=== PATIENT | female | born 1970 | race Two or more races ===

== ENCOUNTER 2020-07-11 14:59 | Outpatient (REF) | payer MEDICARE, MEDICAID, SELFPAY | END 2020-07-11 15:00 | disposition home or self-care (01) | LOC: HO.LAB 14:59 | PROVIDERS: Visit Provider Internal Medicine | DX: Z20.822 Contact with and (suspected) exposure to COVID-19 (principal) | CPT/HCPCS: 36415; C9803; U0003 ==

== ENCOUNTER 2020-07-20 09:38 | Outpatient (REF) | payer MEDICARE, MEDICAID, SELFPAY | END 2020-07-20 09:39 | disposition home or self-care (01) | LOC: HO.LAB 09:38 | PROVIDERS: Visit Provider Internal Medicine | DX: Z20.822 Contact with and (suspected) exposure to COVID-19 (principal) | CPT/HCPCS: 36415; C9803; U0003 ==

== ENCOUNTER → 2020-08-01 11:43 | Outpatient (BNVA) | payer MEDICARE, MEDICAID, SELFPAY | PROVIDERS: PCP Nurse Practitioner Family; Visit Provider Physician Assistant | DX: Z13.89 Encounter for screening for other disorder (principal) | CPT/HCPCS: Q3014 ==

== ENCOUNTER 2020-08-04 10:10 | Outpatient (REF) | payer MEDICARE, SELFPAY | END 2020-08-04 10:11 | disposition home or self-care (01) | LOC: HO.LAB 10:10 | PROVIDERS: Visit Provider Internal Medicine | DX: Z20.822 Contact with and (suspected) exposure to COVID-19 (principal) | CPT/HCPCS: 36415; C9803; U0003; U0005 ==

== ENCOUNTER 2020-09-23 06:30 | Day surgery (SDC) | payer MEDICARE, SELFPAY ==
[2020-09-16 12:32] VITALS: BMI 36.6
--- NOTE | 2020-09-22 10:31 | HO.ANESPROP2 ---
HPI - Anesthesia Eval Consult details Narrative: 50yo F for Colonoscopy PMFSH Active Problems Active Problems: All Active Problems (Updated 09/16/20 @ 12:16 by Yany Urban) Encounter for screening colonoscopy (Acute) Diabetes (Acute) Thyroid condition (Acute) Dyslipidemia (Acute) Past Medical History Medical History (Updated 09/22/20 @ 10:31 by Krysten Lott) Anxiety and depression Arthritis Asthma Carpal tunnel syndrome Diabetes mellitus Elevated cholesterol GERD (gastroesophageal reflux disease) HTN (hypertension) Hx of migraines CARMEN on CPAP PONV (postoperative nausea and vomiting) Thyroid disease Family History Family History (Updated 08/01/20 @ 14:04 by Rosa Isela Dominguez PA-C) Father No problems noted. Mother No problems noted. Surgical History Surgical History (Updated 09/16/20 @ 12:16 by Yany Urban) History of appendectomy History of incisional hernia repair History of lymph node excision Hx of arthroscopy of left knee Social History Social History (Updated 08/01/20 @ 14:06 by Rosa Isela Dominguez PA-C) Are you a primary career services assistant to a significant other at home: No Alcohol intake: never Smoking Status: Current every day smoker Have you been hit, kicked, punched, or otherwise hurt by someone within the past year? If so, by whom?: No Advance Directives: No Advance Directives Information Provided: No Advance Directives on File: No Recently lost weight without trying: No Current occupational status: unemployed Meds Allergies Allergy/AdvReac Type Severity Reaction Status Date / Time erythromycin base Allergy Severe HIVES Verified 09/23/20 06:37 [Erythromycin Base] Penicillins Allergy Severe HIVES Verified 09/23/20 06:37 adhesive tape [ADHESIVE TAPE] Allergy Unknown RASH Verified 09/23/20 06:37 furosemide Allergy Unknown rash Verified 09/16/20 12:19 latex [LATEX] Allergy Unknown RASH Verified 09/23/20 06:37 penicillin V Allergy Unknown injection Verified 09/16/20 12:19 site reaction Sulfa (Sulfonamide Allergy Unknown DIZZINESS, Verified 09/23/20 06:37 Antibiotics) VOMITTING, [SULFA(SULFONAMIDE rash ANTIBIOTICS)] tolterodine [Detrol] Allergy Unknown rash Verified 09/16/20 12:19 Home Medications Medication Instructions Recorded Confirmed Last Taken Type amitriptyline 25 mg tablet 25 mg PO BEDTIME 08/01/20 09/16/20 Unknown History aspirin 81 mg tablet,delayed 81 mg PO DAILY 08/01/20 09/16/20 Unknown History release atorvastatin 10 mg tablet 10 mg PO DAILY 08/01/20 09/16/20 Unknown History dulaglutide 0.75 mg/0.5 mL 0.75 mg SUBCUT QWEEK 08/01/20 09/16/20 Unknown History subcutaneous pen injector fluticasone propionate 50 1 inh INHALATION BID 08/01/20 09/16/20 Unknown History mcg/actuation blister powder for inhalation levothyroxine 175 mcg capsule 175 mcg PO DAILY 08/01/20 09/16/20 Unknown History metformin 1,000 mg tablet 1,000 mg PO BID 08/08/20 09/16/20 Unknown History Lantus Solostar U-100 Insulin 25 unit SUBCUT BEDTIME 09/16/20 09/16/20 Unknown History acetaminophen-codeine 1 tab PO Q12H PRN 09/16/20 09/16/20 Unknown History albuterol sulfate 2 puff INHALATION Q4-6H PRN 09/16/20 09/16/20 Unknown History cholecalciferol (vitamin D3) 1 tab PO DAILY 09/16/20 09/16/20 Unknown History lisinopril 1 tab PO DAILY 09/16/20 09/16/20 Unknown History loratadine 1 tab PO DAILY 09/16/20 09/16/20 Unknown History omeprazole 1 cap PO DAILY 09/16/20 09/16/20 Unknown History Exam Exam Date and Time: September 22, 2020 1031 Height,Weight and Vital Signs: Height 5 ft 2 in Weight 90.718 kg Assessment and Plan Assessment Anesthesia Assessment: Chart Reviewed
[2020-09-23 06:50] VITALS: BP 134/73; PULSE 114; RESP 16; TEMP 36.3; O2SAT 97
[2020-09-23] MEDS: Lactated Ringers 1,000 ML 100 ML IVCONT (07:07)
[2020-09-23 07:12] LABS: Glucose, Whole Blood 179 mg/dL (60-115)
--- NOTE | 2020-09-23 07:23 | P.OP_ITS ---
Operative Note Operative Note Date of Service: 09/23/20 Narrative: Pre-op diagnosis: Colon cancer screening Post-op diagnosis: other (Cecal AVM, colon polyps, diverticulosis, hemorrhoids) Procedure: COLONOSCOPY TO THE CECUM WITH BIOPSY AND SNARE POLYPECTOMY Consent: Indications for the procedure and potential complications of bleeding, perforation, reaction to medications and missed diagnosis were discussed with the patient and informed consent was obtained. Instrument: Olympus PCF H 190 L variable stiffness pediatric colonoscope Monitoring: Vital signs and clinical assessment, intermittent blood pressure monitoring, continuous EKG monitoring, Pulse oximetry and Carbon Dioxide monitoring were done throughout the procedure. Colon withdrawl time was 32 minutes. Procedure: The patient was placed in the left lateral decubitis position and pre-procedure medications were administered. After a digital rectal examination of the ano-rectum, the video colonoscope was inserted into the rectum and advanced through the colon to the cecum. The colonoscope was slowly withdrawn in a retrograde panoramic fashion and the colon mucosa was carefully examined including a retroflexed view of the rectum. Findings and interventions are described below. Procedure Difficulty: Without difficulty Findings: Terminal Ileum: Not evaluated Cecum: 1 cm non-bleeding AVM in the cecum. Ascending Colon: Normal Transverse Colon: A 4 - 5 mm sessile polyp removed with the cold biopsy. Two 10-12 mm sessile polyps removed with a hot snare Descending Colon: Moderate diverticular Sigmoid Colon: Multiple 5-10 mm diminutive appearing polyps - one was biopsied. Moderate diverticulosis Rectum: Normal Ano-rectum: Moderate internal hemorrhoids Colon preparation: Fair despite copious irrigation Impression and Post Procedure Diagnosis: Colonoscopy Findings: Five small to medium sized polyps removed Moderate diverticulosis seen in the left colon Moderate hemorrhoids on retroflexed exam. Plan: Await pathology results Patient has an appointment on 10/20/20 in the [facility] with SUKHWINDER Collado . Repeat Colonoscopy interval based on path results - in 3 years if polyps are adenomatous and due to fair prep. Above findings were reviewed with the patient and colon polyps and diverticulosis handouts were given in the discharge area Surgeon: Figueroa Yang MD Anesthesia: MAC (Dr More) Chief Substation Operator: Marbin Abbott Estimated blood loss (mL): 0 Pathology: other (A- TRANSVERSE COLON POLYPS B- SIGMOID POLYPS) Condition: stable Disposition: PACU
--- NOTE | 2020-09-23 07:23 | P.HPSUR_ITS ---
Pre-Procedural Eval Section A The patient is an INPATIENT: No The History & Physical has been completed within 30 days and I have reviewed it.: No Section B Chief Complaint: Screening Details of Present Illness: A 49-year-old diabetic, female hypertension referred for screening colonoscopy-patient states she had a colonoscopy when she was 39 and [place] there were no problems. She currently has no GI complaints. She has a good appetite and normal bowel pattern. Relevant Family History (Specify if Yes): No Relevant Social History: None Present Medications: see Short Stay Collaborative assessment Allergies: Allergies Allergy/AdvReac Type Severity Reaction Status Date / Time erythromycin base Allergy Severe HIVES Verified 09/23/20 06:37 [Erythromycin Base] Penicillins Allergy Severe HIVES Verified 09/23/20 06:37 adhesive tape [ADHESIVE TAPE] Allergy Unknown RASH Verified 09/23/20 06:37 furosemide Allergy Unknown rash Verified 09/16/20 12:19 latex [LATEX] Allergy Unknown RASH Verified 09/23/20 06:37 penicillin V Allergy Unknown injection Verified 09/16/20 12:19 site reaction Sulfa (Sulfonamide Allergy Unknown DIZZINESS, Verified 09/23/20 06:37 Antibiotics) VOMITTING, [SULFA(SULFONAMIDE rash ANTIBIOTICS)] tolterodine [Detrol] Allergy Unknown rash Verified 09/16/20 12:19 Review of Systems Sugical H&P ROS: Negative: Constitution, Cardiovascular, Respiratory and Gastr ointestinal Exam Surgical H&P Exam: Normal: Heart, Normal: Lungs, Normal: Extremities and Normal: Abdomen Plan Diagnosis/Plan: Unchanged I have reviewed the history and physical and performed a pertinent physical examination on my patient. No changes have occurred unless specified.
[2020-09-23 08:30] VITALS: BP 106/67; PULSE 114; RESP 16; TEMP 36.4; O2SAT 94
[2020-09-23 08:43] LABS: Glucose, Whole Blood 176 mg/dL (60-115)
[2020-09-23 08:45] VITALS: BP 129/80; PULSE 113; RESP 16; TEMP 36.7; O2SAT 96
== END 2020-09-23 09:40 | disposition home or self-care (01) ==
PROVIDERS: Visit Provider Internal Medicine Gastroenterology
PROC: 0DJD8ZZ Inspection of Lower Intestinal Tract, Via Natural or Artificial Opening Endoscopic (ICD-10-PCS; CPT 45378; principal; 2020-09-23 07:30)
DX: Z12.11 Encounter for screening for malignant neoplasm of colon (principal); K63.5 Polyp of colon; K55.20 Angiodysplasia of colon without hemorrhage; K57.30 Diverticulosis of large intestine without perforation or abscess without bleeding; K64.8 Other hemorrhoids; I10 Essential (primary) hypertension; E11.9 Type 2 diabetes mellitus without complications; Z79.51 Long term (current) use of inhaled steroids; Z79.82 Long term (current) use of aspirin; Z79.84 Long term (current) use of oral hypoglycemic drugs; Z88.0 Allergy status to penicillin; Z88.2 Allergy status to sulfonamides; Z88.1 Allergy status to other antibiotic agents; Z91.040 Latex allergy status
CPT/HCPCS: 45385; 45380; 82947; 88305

== ENCOUNTER 2020-10-06 15:21 | Outpatient (REF) | payer MEDICARE, MEDICAID, SELFPAY | END 2020-10-06 15:22 | disposition home or self-care (01) | LOC: HO.LAB 15:21 | PROVIDERS: Visit Provider Internal Medicine | DX: Z20.822 Contact with and (suspected) exposure to COVID-19 (principal) | CPT/HCPCS: C9803; U0003; U0005 ==

== ENCOUNTER → 2020-11-02 11:10 | Outpatient (BNVA) | payer MEDICARE, SELFPAY | PROVIDERS: PCP Nurse Practitioner Primary Care; Visit Provider Physician Assistant | DX: Z13.89 Encounter for screening for other disorder (principal) | CPT/HCPCS: Q3014 ==

== ENCOUNTER 2021-01-23 14:35 | Outpatient (REF) | payer MEDICARE, MEDICAID, SELFPAY ==
--- NOTE | ~2021-01-23 | MM_ITS ---
EXAMINATION: MM SCREENING DIGITAL BREAST TOMOSYNTHESIS, BILATERAL CLINICAL INFORMATION: Screening. Asymptomatic. The lifetime risk of breast cancer based on the Tyrer-Cuzick Model is 9%. COMPARISON: Mammography: 02/07/2017 (baseline) TECHNIQUE: Digital breast tomosynthesis is performed in both the craniocaudal and mediolateral oblique views along with computer-aided detection (CAD). Synthesized 2D images are generated from the tomosynthesis. FINDINGS: There are scattered areas of fibroglandular density (ACR BI-RADS breast composition Category b). There are no significant masses, abnormal calcifications, or other abnormalities. The axilla and skin contours are unremarkable. No significant changes from prior exam. MM/MM tomosynthesis screening BI IMPRESSION: No mammographic evidence of malignancy. ASSESSMENT: BI-RADS 1: Negative RECOMMENDATION: Routine annual mammography screening. This patient's information was entered into a reminder system with a target due date for their next mammogram.
== END 2021-01-23 14:36 | disposition home or self-care (01) ==
LOC: HO.MAMMO 14:35
PROVIDERS: Visit Provider Nurse Practitioner Primary Care
DX: Z12.31 Encounter for screening mammogram for malignant neoplasm of breast (principal)
CPT/HCPCS: 77063; 77067

== ENCOUNTER 2021-03-07 14:06 | Outpatient (REF) | payer MEDICARE, MEDICAID, SELFPAY | END 2021-03-07 14:07 | disposition home or self-care (01) | LOC: HO.LAB 14:06 | PROVIDERS: Visit Provider Internal Medicine | DX: Z20.822 Contact with and (suspected) exposure to COVID-19 (principal) | CPT/HCPCS: C9803; U0003; U0005 ==

== ENCOUNTER 2021-03-17 12:02 | Outpatient (REF) | payer MEDICARE, MEDICAID, SELFPAY | END 2021-03-17 12:03 | disposition home or self-care (01) | LOC: HO.LAB 12:02 | PROVIDERS: Visit Provider Internal Medicine | DX: Z20.822 Contact with and (suspected) exposure to COVID-19 (principal) | CPT/HCPCS: C9803; U0003; U0005 ==

== ENCOUNTER 2021-05-06 06:27 | Emergency (ER) | payer MEDICARE, MEDICAID, SELFPAY ==
--- NOTE | ~2021-05-06 | CT_ITS ---
EXAMINATION: CT ABDOMEN AND PELVIS WITH CONTRAST CLINICAL INFORMATION: Abdominal pain COMPARISON: None TECHNIQUE: Multidetector volumetric images were obtained from the superior aspect of the liver through the pubic symphysis following administration 85 mL of Omnipaque 350 intravenous contrast. Sagittal and coronal reformatted images were obtained on the technologist's workstation. Oral contrast: No This CT examination was performed using dose optimization techniques as appropriate, variously including the following: *Automated exposure control *Adjustment of mA and/or kV according to patient size (this includes techniques or standardized protocols for targeted exams where dose is matched to indication/reason for exam; i.e. extremities or head) *Use of iterative reconstruction technique DLP: 715 mGy-cm FINDINGS: LUNG BASES: The visualized lung bases are unremarkable. No pleural or pericardial effusion. LIVER, GALLBLADDER, AND BILIARY TREE: The liver is normal in size, shape, and attenuation. No focal hepatic lesion or biliary ductal dilatation is present. Status post cholecystectomy. PANCREAS: Unremarkable. SPLEEN: Unremarkable. ADRENAL GLANDS: Unremarkable. KIDNEYS AND URETERS: The kidneys are normal in size, shape, and attenuation. No hydronephrosis, hydroureter, or calculi seen. No perinephric stranding. There is some fullness of the left upper collecting system but without obstructing calculus. BLADDER: Unremarkable. GASTROINTESTINAL TRACT: No dilated loops of large or small bowel evident. No free air or free fluid. No pericolonic inflammatory change. The appendix is not identified, however no inflammatory changes seen within the right lower quadrant. ABDOMINAL WALL: No significant hernia is appreciated. LYMPH NODES: No lymphadenopathy identified. VASCULAR: Unremarkable. PELVIC VISCERA: Unremarkable. OSSEOUS STRUCTURES: No suspicious destructive bony lesion identified. CT/CT abdomen pelvis w con IMPRESSION: No specific findings to explain patient's symptoms.
[2021-05-06 07:15] VITALS: BP 125/72; PULSE 110; RESP 16; TEMP 37.1; O2SAT 97; BMI 34.7
--- NOTE | 2021-05-06 07:25 | ED.ABDPAIN ---
HPI - Abdominal Pain General Chief Complaint: Abdominal Pain Stated Complaint: vomiting; abdominal pain Time Seen by Provider: 05/06/21 07:04 History of Present Illness HPI narrative: 50-year-old female with a history of diabetes presents today with having epigastric pain. Nausea vomiting that has been ongoing for the last week. Vomiting mostly consistent with food. Patient denies any fever chills. No cough no congestion or upper respiratory symptoms. No diaphoresis. Positive previous history of appendectomy and cholecystectomy. Patient denies any changes with food. Been compliant with her medication. She is on insulin and soup on a urea is. Patient stool has been darker in color. She has been using Pepto-Bismol. The stool has consistency. Patient denies any leg swelling that is new. Denies any chest pain. Denies any shortness of breath. Denies any diaphoresis. Patient from home. Related Data Home Medications Medication Instructions Recorded Confirmed amitriptyline 25 mg tablet 25 mg PO BEDTIME 08/01/20 09/16/20 aspirin 81 mg tablet,delayed 81 mg PO DAILY 08/01/20 09/16/20 release (Adult Aspirin Regimen) atorvastatin 10 mg tablet 10 mg PO DAILY 08/01/20 09/16/20 dulaglutide 0.75 mg/0.5 mL 0.75 mg SUBCUT QWEEK 08/01/20 09/16/20 subcutaneous pen injector (Trulicity) fluticasone propionate 50 1 inh INHALATION BID 08/01/20 09/16/20 mcg/actuation blister powder for inhalation (Flovent Diskus) levothyroxine 175 mcg capsule 175 mcg PO DAILY 08/01/20 09/16/20 metformin 1,000 mg tablet 1,000 mg PO BID 08/08/20 09/16/20 acetaminophen 300 mg-codeine 30 mg 1 tab PO Q12H PRN 09/16/20 09/16/20 tablet albuterol sulfate 90 mcg/actuation 2 puff INHALATION Q4-6H PRN 09/16/20 09/16/20 aerosol inhaler cholecalciferol (vitamin D3) 25 1 tab PO DAILY 09/16/20 09/16/20 mcg (1,000 unit) tablet insulin glargine 100 unit/mL (3 25 unit SUBCUT BEDTIME 09/16/20 09/16/20 mL) subcutaneous pen (Lantus Solostar U-100 Insulin) lisinopril 5 mg tablet 1 tab PO DAILY 09/16/20 09/16/20 loratadine 10 mg tablet 1 tab PO DAILY 09/16/20 09/16/20 omeprazole 20 mg capsule,delayed 1 cap PO DAILY 09/16/20 09/16/20 release Allergies Allergy/AdvReac Type Severity Reaction Status Date / Time erythromycin base Allergy Severe HIVES Verified 09/23/20 06:37 [Erythromycin Base] Penicillins Allergy Severe HIVES Verified 09/23/20 06:37 adhesive tape [ADHESIVE TAPE] Allergy Unknown RASH Verified 09/23/20 06:37 furosemide Allergy Unknown rash Verified 09/16/20 12:19 latex [LATEX] Allergy Unknown RASH Verified 09/23/20 06:37 penicillin V Allergy Unknown injection Verified 09/16/20 12:19 site reaction Sulfa (Sulfonamide Allergy Unknown DIZZINESS, Verified 09/23/20 06:37 Antibiotics) VOMITTING, [SULFA(SULFONAMIDE rash ANTIBIOTICS)] tolterodine [Detrol] Allergy Unknown rash Verified 09/16/20 12:19 Review of Systems Review of Systems Positive generalized malaise Positive abdominal pain Positive nausea vomiting Positive formed stool No chest pain no shortness of breath All systems reviewed otherwise negative Physical Exam Vital Signs: Vital Signs: Last Vital Signs Temp 98.7 F 05/06/21 10:11 Pulse 95 05/06/21 10:11 Resp 16 05/06/21 10:11 BP 115/60 05/06/21 10:11 Pulse Ox 97 05/06/21 10:11 Body Mass Index 34.7 Appearance: Alert. Oriented X3. No acute distress. Eyes: Pupils equal, round and reactive to light. ENT: Pharynx normal. Neck: Normal inspection. Neck supple. No lymph nodes noted. No crepitus CVS: Normal heart rate and rhythm. Pulses normal. Normal S1 and S2 Respiratory: No respiratory distress. Breath sounds normal. No Wheezing. No rales Abdomen: Soft and nontender. No rigidity. No distention. good BS x4 Skin: Skin warm and dry. Normal skin color. Normal skin turgor. Extremities: No lower extremity edema. Neurovascular intact to all extremities. No Lacerations. No Rash Neuro: Oriented X 3. No motor deficit. No sensory deficit. Moving all extermities. No slurred speech MDM - Abdominal Pain MDM Narrative Medical decision making narrative: EKG showed a sinus rhythm heart rate is 100 [place] QRS QT within normal limits there is no acute ST segment elevation noted Well-appearing no acute distress. Patient's white count was 16 CT scan of the abdomen negative for acute finding. Patient's EKG normal. Patient's urine negative for infection. Electrolytes unremarkable. No evidence of elevated LFTs. Lipase is normal. Will discharge patient home. In stable condition. Medical Records Attestation: I reviewed the patient's medical records. Lab Data Attestation: I reviewed the patient's lab results. Result diagrams: 05/06/21 09:34 05/06/21 07:38 Labs: Lab Results 05/06/21 05/06/21 05/06/21 Range/Units 07:38 07:38 08:52 WBC (4.8-10.8) X10*3/uL RBC (4.20-5.50) X10*6/uL Hgb (12.0-16.0) g/dl Hct (37.0-47.0) % MCV (80.0-98.0) fL MCH (27.0-33.0) pg MCHC (31.0-35.0) g/dl RDW (11.0-16.0) % Plt Count (160-400) X10*3/uL MPV (9.4-12.3) fL Immature Gran % (Auto) (0.0-0.4) % Neut % (Auto) (45-73) % Lymph % (Auto) (20-40) % [place] % (Auto) (2-11) % Eos % (Auto) (0-4) % Baso % (Auto) (0-2) % Lymph # (Auto) (1.2-4.9) X10*3/uL [place] # (Auto) (0.1-1.2) X10*3/uL Eos # (Auto) (0.0-0.4) X10*3/uL Baso # (Auto) (0.0-0.2) X10*3/uL Abs Immat Gran (auto) (0.00-0.03) X10*3/uL Absolute Neuts (auto) (2.0-8.3) x10*3/uL Absolute Nucleated RBC (0.0-0.012) X10*3/uL Nucleated RBC % (auto) (0.0-0.2) /100WBC Sodium 141 (135-145) mmol/L Potassium 4.4 (3.3-5.1) mmol/L Chloride 102 (96-108) mmol/L Carbon Dioxide 30 H (22-29) mmol/L Anion Gap 13 (12-20) BUN 8 L (9-16) mg/dL Creatinine 0.76 (0.5-1.4) mg/dL Estim Creat Clear Calc 89.2 Estimated GFR > 60 POC Glucose 103 (60-115) mg/dL Random Glucose 173 H (60-115) mg/dL Calcium 9.4 (8.4-10.2) mg/dL Total Bilirubin 0.3 (0.0-1.0) mg/dL Direct Bilirubin < 0.2 (0.0-0.5) mg/dL AST 15 (5-31) U/L ALT 20 (0-31) U/L Alkaline Phosphatase 120 H (39-117) U/L Total Protein 6.6 (6.5-8.0) g/dL Albumin 3.9 (3.5-5.0) g/dL Lipase 42 (8-78) U/L Urine Color Urine Appearance Urine pH (5.0-8.0) Ur Specific [place] (1.005-1.025) Urine Protein (NEG-TRACE) MG/DL Urine Glucose (UA) (NEG) MG/DL Urine Ketones (NEG) MG/DL Urine Blood (NEG) Urine Nitrite (NEG) Ur Leukocyte Esterase (NEG) Urine RBC (0) /HPF Urine WBC (0-4) /HPF Ur Squamous Epith Cells /LPF Urine Bacteria /LPF Stool Occult Blood NEGATIVE (NEGATIVE) 05/06/21 05/06/21 Range/Units 09:34 09:56 WBC 16.6 H (4.8-10.8) X10*3/uL RBC 3.86 L (4.20-5.50) X10*6/uL Hgb 12.0 (12.0-16.0) g/dl Hct 36.7 L (37.0-47.0) % MCV 95.1 (80.0-98.0) fL MCH 31.1 (27.0-33.0) pg MCHC 32.7 (31.0-35.0) g/dl RDW 12.8 (11.0-16.0) % Plt Count 362 (160-400) X10*3/uL MPV 10.4 (9.4-12.3) fL Immature Gran % (Auto) 0.4 (0.0-0.4) % Neut % (Auto) 59.6 (45-73) % Lymph % (Auto) 29.9 (20-40) % [place] % (Auto) 3.7 (2-11) % Eos % (Auto) 6.2 H (0-4) % Baso % (Auto) 0.2 (0-2) % Lymph # (Auto) 5.0 H (1.2-4.9) X10*3/uL [place] # (Auto) 0.6 (0.1-1.2) X10*3/uL Eos # (Auto) 1.0 H (0.0-0.4) X10*3/uL Baso # (Auto) 0.0 (0.0-0.2) X10*3/uL Abs Immat Gran (auto) 0.07 H (0.00-0.03) X10*3/uL Absolute Neuts (auto) 9.9 H (2.0-8.3) x10*3/uL Absolute Nucleated RBC 0.000 (0.0-0.012) X10*3/uL Nucleated RBC % (auto) 0.0 (0.0-0.2) /100WBC Sodium (135-145) mmol/L Potassium (3.3-5.1) mmol/L Chloride (96-108) mmol/L Carbon Dioxide (22-29) mmol/L Anion Gap (12-20) BUN (9-16) mg/dL Creatinine (0.5-1.4) mg/dL Estim Creat Clear Calc Estimated GFR POC Glucose (60-115) mg/dL Random Glucose (60-115) mg/dL Calcium (8.4-10.2) mg/dL Total Bilirubin (0.0-1.0) mg/dL Direct Bilirubin (0.0-0.5) mg/dL AST (5-31) U/L ALT (0-31) U/L Alkaline Phosphatase (39-117) U/L Total Protein (6.5-8.0) g/dL Albumin (3.5-5.0) g/dL Lipase (8-78) U/L Urine Color YELLOW Urine Appearance CLEAR Urine pH 7.0 (5.0-8.0) Ur Specific [place] <= 1.005 (1.005-1.025) Urine Protein NEG (NEG-TRACE) MG/DL Urine Glucose (UA) NEG (NEG) MG/DL Urine Ketones NEG (NEG) MG/DL Urine Blood NEG (NEG) Urine Nitrite NEG (NEG) Ur Leukocyte Esterase NEG (NEG) Urine RBC 0 (0) /HPF Urine WBC 0 (0-4) /HPF Ur Squamous Epith Cells NONE /LPF Urine Bacteria NONE /LPF Stool Occult Blood (NEGATIVE) Discharge Plan Discharge Clinical Impression: Gastritis, Diabetic gastroparesis Patient Disposition: Home, Self-Care Instructions: Gastritis (ED), Diabetic Gastroparesis (DC) Prescriptions: No Action acetaminophen-codeine 300-30 mg tablet 1 tab PO Q12H PRN (Reason: Pain) RF: 0 omeprazole 20 mg capsule,delayed release(DR/EC) 1 cap PO DAILY RF: 0 lisinopril 5 mg tablet 1 tab PO DAILY RF: 0 albuterol sulfate 90 mcg/actuation HFA aerosol inhaler 2 puff inhalation Q4-6H PRN (Reason: Wheezing) RF: 0 loratadine 10 mg tablet 1 tab PO DAILY RF: 0 cholecalciferol (vitamin D3) 25 mcg (1,000 unit) tablet 1 tab PO DAILY RF: 0 Lantus Solostar U-100 Insulin 100 unit/mL (3 mL) insulin pen 25 unit subcut BEDTIME RF: 0 aspirin [Adult Aspirin Regimen] 81 mg tablet,delayed release (DR/EC) 81 mg PO DAILY RF: 0 levothyroxine 175 mcg capsule 175 mcg PO DAILY RF: 0 atorvastatin 10 mg tablet 10 mg PO DAILY RF: 0 Trulicity 0.75 mg/0.5 mL pen injector 0.75 mg subcut QWEEK RF: 0 amitriptyline 25 mg tablet 25 mg PO BEDTIME RF: 0 Flovent Diskus 50 mcg/actuation blister with device 1 inh inhalation BID RF: 0 metformin 1,000 mg tablet 1,000 mg PO BID RF: 0 Referrals: Concepcion Booth [Primary Care Provider] - 2 days [facility] Past Medical History Attestation statement: The following information was validated with the patient. Medical History Anxiety and depression Arthritis Asthma Carpal tunnel syndrome Diabetes mellitus Elevated cholesterol GERD (gastroesophageal reflux disease) HTN (hypertension) Hx of migraines CARMEN on CPAP PONV (postoperative nausea and vomiting) Thyroid disease Surgical History History of appendectomy History of incisional hernia repair History of lymph node excision Hx of arthroscopy of left knee Hx of colonoscopy Family History Family History Father No problems noted. Mother No problems noted. Social History Social History Household Members: Spouse and Children Household Members Other:: lives with son Are you a primary continuum of care manager to a significant other at home: No Alcohol intake: never Patient Tobacco Use Status: Never used Tobacco Cigarettes Per Day: 3 Advance Directives: No Current occupational status: unemployed
--- NOTE | 2021-05-06 07:32 | ECG_ITS ---
Test Reason : CP Blood Pressure : / mmHG Vent. Rate : 100 BPM Atrial Rate : 100 BPM P-R Int : 146 ms QRS Dur : 074 ms QT Int : 380 ms P-R-T Axes : 063 029 041 degrees QTc Int : 490 ms Normal sinus rhythm Nonspecific ST abnormality Inferior leads Abnormal ECG Nonspecific ST abnormality is new Referred By: Adelita Keller Electronically Signed By:JERMAIN MAC MD
[2021-05-06 07:46] LABS: OBS Int Ctl Valid YES; OBS1 NEGATIVE (NEGATIVE)
[2021-05-06] MEDS: 0.9 % Sodium Chloride 1,000 ML 999 ML IV (07:53)
[2021-05-06 08:00] VITALS: BP 115/75; PULSE 103; RESP 16; O2SAT 98
[2021-05-06 08:02] LABS: Alanine Aminotransferase 20 U/L (0-31); Albumin Level 3.9 g/dL (3.5-5.0); Alkaline Phosphatase 120 U/L (39-117); Anion Gap 13 (12-20); Aspartate Amino Transferase 15 U/L (5-31); Bilirubin Direct < 0.2 mg/dL (0.0-0.5); Bilirubin Total 0.3 mg/dL (0.0-1.0); Blood Urea Nitrogen 8 mg/dL (9-16); Calcium 9.4 mg/dL (8.4-10.2); Carbon Dioxide 30 mmol/L (22-29); Chloride 102 mmol/L (96-108); Creatinine Clr Calc Pharmacy 89.2; Estimated Glomerular Filt Rate > 60; Glucose Random 173 mg/dL (60-115); Lipase 42 U/L (8-78); Potassium 4.4 mmol/L (3.3-5.1); Sodium 141 mmol/L (135-145); Total Protein 6.6 g/dL (6.5-8.0)
[2021-05-06] MEDS: ondansetron HCL 4 MG/2 ML VIAL IVPUSH (08:03)
--- NOTE | 2021-05-06 08:29 | PC.NURSE ---
pt alert and oriented x4, vss, pt c/o n/v/abdominal pain. she states the pain started after she was put on Gabapentin for neuropathy 3wks ago. she also states her stool turned black. she denies fever but reports chills. she states she has not been around anyone sick and she is covid vaccinated. IV established, fluids hung and med given as documented. pt currently in ct.
[2021-05-06] MEDS: iohexoL 350 MG/ML 100 ML INFUS..BTL IV (08:47)
[2021-05-06 08:55] LABS: Glucose, Whole Blood 103 mg/dL (60-115)
[2021-05-06 09:40] LABS: MANUAL DIFF FLAG NO
[2021-05-06 09:43] LABS: Basophils Percent Auto 0.2 % (0-2); Eosinophils Percent Auto 6.2 % (0-4); Hematocrit 36.7 % (37.0-47.0); Imm Gran Abs Auto 0.07 X10*3/uL (0.00-0.03); Imm Gran Pct Auto 0.4 % (0.0-0.4); Lymphocytes Percent Auto 29.9 % (20-40); Mean Corpuscular HGB Conc 32.7 g/dl (31.0-35.0); Mean Corpuscular Hemoglobin 31.1 pg (27.0-33.0); Mean Corpuscular Volume 95.1 fL (80.0-98.0); Mean Platelet Volume 10.4 fL (9.4-12.3); Monocytes Absolute Auto 0.6 X10*3/uL (0.1-1.2); Monocytes Percent Auto 3.7 % (2-11); Neutrophils Absolute Auto 9.9 x10*3/uL (2.0-8.3); Neutrophils Percent Auto 59.6 % (45-73); Platelet Count 362 X10*3/uL (160-400); Red Blood Count 3.86 X10*6/uL (4.20-5.50); Red Cell Distribution Width 12.8 % (11.0-16.0); White Blood Count 16.6 X10*3/uL (4.8-10.8)
[2021-05-06 10:04] LABS: Appearance Urine CLEAR; Color Urine YELLOW; Glucose Urine UA NEG (NEG); Leukocyte Esterase Urine NEG (NEG); Nitrite Urine NEG (NEG); Specific Gravity - Urine <= 1.005 (1.005-1.025); Urine Blood NEG (NEG); Urine Ketones NEG (NEG); Urine Protein NEG (NEG-TRACE)
[2021-05-06 10:10] LABS: RBC Urine 0 /HPF (0); WBC Urine 0 /HPF (0-4)
[2021-05-06 10:11] VITALS: BP 115/60; PULSE 95; RESP 16; TEMP 37.1; O2SAT 97
[2021-05-06] MEDS: Magnesium Hydrox/Alum Hydrox 30 ML ORAL.SUSP PO (10:27)
--- NOTE | 2021-05-06 11:39 | PC.NURSE ---
pt medically cleared for discharge, discharge summary given and explained. pt reports 2/10 pain. no complaints. pt alert and oriented, steady gait on discharge.
== END 2021-05-06 11:47 | disposition home or self-care (01) ==
PROVIDERS: Emergency Provider Emergency Medicine Emergency Medical Services; PCP Nurse Practitioner
DX: A08.4 Viral intestinal infection, unspecified (principal); E11.43 Type 2 diabetes mellitus with diabetic autonomic (poly)neuropathy; K31.84 Gastroparesis; F17.210 Nicotine dependence, cigarettes, uncomplicated; Z71.6 Tobacco abuse counseling; Z79.899 Other long term (current) drug therapy
CPT/HCPCS: 36415; 74177; 80048; 80076; 81001; 82272; 82947; 83690; 85025; 93005; 96361; 96374; 99284; 99285; J2405; Q9967

== ENCOUNTER 2021-07-10 14:20 | Emergency (ER) | payer MEDICARE, MEDICAID, SELFPAY ==
[2021-07-10 14:57] VITALS: BP 119/79; PULSE 104; RESP 18; TEMP 35.9; O2SAT 95; BMI 42.0
--- NOTE | 2021-07-10 17:26 | ED_ITS ---
HPI - URI/Sore Throat General Chief Complaint: Upper Respiratory Symptoms Stated Complaint: sore throat Time Seen by Provider: 07/10/21 16:58 Source: patient Mode of arrival: ambulatory Limitations: no limitations History of Present Illness HPI Narrative: 50-year-old female with a history of diabetes, hypothyroidism, high cholesterol here with reports of cough and sore throat and nasal congestion for 2-3 days. Patient received Moderna vaccine x2. She tells me that she has a feeling member who was living with her who is COVID positive. She denies fevers, chills, difficulty breathing or chest pain Related Data Home Medications Medication Instructions Recorded Confirmed amitriptyline 25 mg tablet 25 mg PO BEDTIME 08/01/20 09/16/20 aspirin 81 mg tablet,delayed 81 mg PO DAILY 08/01/20 09/16/20 release (Adult Aspirin Regimen) atorvastatin 10 mg tablet 10 mg PO DAILY 08/01/20 09/16/20 dulaglutide 0.75 mg/0.5 mL 0.75 mg SUBCUT QWEEK 08/01/20 09/16/20 subcutaneous pen injector (Trulicity) fluticasone propionate 50 1 inh INHALATION BID 08/01/20 09/16/20 mcg/actuation blister powder for inhalation (Flovent Diskus) levothyroxine 175 mcg capsule 175 mcg PO DAILY 08/01/20 09/16/20 metformin 1,000 mg tablet 1,000 mg PO BID 08/08/20 09/16/20 acetaminophen 300 mg-codeine 30 mg 1 tab PO Q12H PRN 09/16/20 09/16/20 tablet albuterol sulfate 90 mcg/actuation 2 puff INHALATION Q4-6H PRN 09/16/20 09/16/20 aerosol inhaler cholecalciferol (vitamin D3) 25 1 tab PO DAILY 09/16/20 09/16/20 mcg (1,000 unit) tablet insulin glargine 100 unit/mL (3 25 unit SUBCUT BEDTIME 09/16/20 09/16/20 mL) subcutaneous pen (Lantus Solostar U-100 Insulin) lisinopril 5 mg tablet 1 tab PO DAILY 09/16/20 09/16/20 loratadine 10 mg tablet 1 tab PO DAILY 09/16/20 09/16/20 omeprazole 20 mg capsule,delayed 1 cap PO DAILY 09/16/20 09/16/20 release Allergies Allergy/AdvReac Type Severity Reaction Status Date / Time erythromycin base Allergy Severe HIVES Verified 09/23/20 06:37 [Erythromycin Base] Penicillins Allergy Severe HIVES Verified 09/23/20 06:37 adhesive tape [ADHESIVE TAPE] Allergy Unknown RASH Verified 09/23/20 06:37 furosemide Allergy Unknown rash Verified 09/16/20 12:19 latex [LATEX] Allergy Unknown RASH Verified 09/23/20 06:37 penicillin V Allergy Unknown injection Verified 09/16/20 12:19 site reaction Sulfa (Sulfonamide Allergy Unknown DIZZINESS, Verified 09/23/20 06:37 Antibiotics) VOMITTING, [SULFA(SULFONAMIDE rash ANTIBIOTICS)] tolterodine [Detrol] Allergy Unknown rash Verified 09/16/20 12:19 Review of Systems Review of Systems: Yes all other systems are reviewed and are negative Constitutional: Constitutional: Reports no additional constitutional complaints, Denies body ache(s), Denies chills, Denies fever(s), Denies headache(s) and Denies weakness Eyes: Eyes: Reports no additional eye complaints and Denies change in vision ENT: Reports system reviewed and no additional complaints, except as documented, Denies dizziness, Denies headache(s), Reports nasal congestion, D enies nasal discharge, Denies neck pain and Reports sore throat Cardiovascular: Cardiovascular: Reports no additional cardiovascular complaints, Denies chest pain, Denies leg edema and Denies dyspnea Respiratory: Respiratory: Reports no additional respiratory complaints, Denies cough and Denies dyspnea Gastrointestinal: Gastrointestinal: Reports no additional gastrointestinal complaints, Denies abdominal pain, Denies diarrhea, Denies nausea and Denies vomiting Genitourinary: Genitourinary: Reports no additional female genitourinary complaints and Denies urinary incontinence Musculoskeletal: Musculoskeletal: Reports no additional musculoskeletal complaints, Denies back pain, Denies arthralgias, Denies joint swelling, Denies neck pain, Denies numbness and Denies tingling Integumentary/Breasts: Skin/Breast: Reports system reviewed and no additional complaints, except as docu and Denies rash Neurologic: Reports system reviewed and no additional complaints, except as documented, Denies Abnormal speech present, Denies dizziness, Denies headache(s), Denies numbness, Denies tingling and Denies weakness PMFSH Past Medical History Attestation statement: The following information was validated with the patient. Source: old records reviewed and nursing notes reviewed Medical History Anxiety and depression Arthritis Asthma Carpal tunnel syndrome Diabetes mellitus Elevated cholesterol GERD (gastroesophageal reflux disease) HTN (hypertension) Hx of migraines CARMEN on CPAP PONV (postoperative nausea and vomiting) Thyroid disease Surgical History History of appendectomy History of incisional hernia repair History of lymph node excision Hx of arthroscopy of left knee Hx of colonoscopy Family History Family History Father No problems noted. Mother No problems noted. Social History Social History Household Members: Spouse and Children Household Members Other:: lives with son Are you a primary care navigator to a significant other at home: No Alcohol intake: never Patient Tobacco Use Status: Never used Tobacco Cigarettes Per Day: 3 Advance Directives: No Advance Directives Information Provided: Yes Patient : No Current occupational status: unemployed Physical Exam Vital Signs: Vital Signs: Last Vital Signs Temp 96.7 F L 07/10/21 14:57 Pulse 104 H 07/10/21 14:57 Resp 18 07/10/21 14:57 BP 119/79 07/10/21 14:57 Pulse Ox 95 07/10/21 14:57 BMI result Body Mass Index 42.0 Const: General: cooperative, healthy appearing, comfortable and no acute distress Orientation/consciousness: patient oriented x3 Limitations: no limitations HENMT: Head: Yes normal to inspection Ears: hearing grossly normal bilaterally and TM's normal bilaterally General nose exam: Normal external nose present Face and sinus: Yes normal facial exam Mouth: Normal oral and palatal mucosa present Throat: Yes posterior oropharynx normal, Yes tonsils normal and Yes uvula midline Eyes: General: appearance normal, both eyes and all related structures Pupils: Equal, round and reactive pupils present Neck: Neck: Yes normal visual inspection, Yes full ROM, Yes no lymphadenopathy and Yes no meningeal signs Chest: Chest palpation & inspection: normal inspection of the chest Resp: Effort & Inspection: normal respiratory effort Auscultation: clear to auscultation bilaterally Cardio: Rate: regular rate Rhythm: regular rhythm Peripheral pulses: Peripheral pulses 2+ throughout GI: Inspection: Yes normal to inspection Palpation (GI): Soft to palpation and nontender Auscultation: normal bowel sounds Back/Spine/Pelvis: Thoracic/Lumbar Spine: thoracic and lumbar spine normal to inspection Skin: General skin exam: no rashes or lesions noted Neuro: General: patient oriented x3, no meningeal signs, no focal motor deficits and normal sensation to monofilament Cranial nerves: Yes Equal, round and reactive pupils present Cognition (Neuro): normal cognition S peech: No Abnormal speech present Gait exam (Neuro): Normal gait present Motor exam (neuro): 5/5 motor strength present throughout Extrem: General: Yes normal to inspection Course Course Course Narrative: 50-year-old female here with 2 days of cough, sore throat nasal congestion with exposure to COVID Exam is benign Vitals are stable Will check COVID screen = rapid COVID is negative. Due to exposure and patient not being fully vaccinated I recommended she quarantine and retest in 48 hours. Reviewed worrisome signs and symptoms of when to return to the emergency department. Comfortable discharge home. MDM - URI/Sore Throat Medical Records Attestation: I reviewed the patient's medical records. Lab Data Attestation: I reviewed the patient's lab results. Labs: Lab Results 07/10/21 Range/Units 17:18 COVID-19 ([facility]) Negative (Negative) COVID-19 Clin Com See Note Discharge Plan Discharge Clinical Impression: Viral infection Patient Disposition: Home, Self-Care Instructions: Viral Syndrome (ED) Additional Instructions: La prueba r?pida de covid es negativa. Cuarentena por 2 d?as m?s y luego repetir la prueba. USTED no necesita regresar aqu? para hacerse la prueba, brianda puede obtener jigar prueba ambulatoria ordenada por mclaughlin m?dico de atenci?n primaria. Aumenta los l?quidos, descansa. Motrin o tylenol para el dolor o la fiebre seg?n sea necesario. Prescriptions: No Action acetaminophen-codeine 300-30 mg tablet 1 tab PO Q12H PRN (Reason: Pain) RF: 0 omeprazole 20 mg capsule,delayed release(DR/EC) 1 cap PO DAILY RF: 0 lisinopril 5 mg tablet 1 tab PO DAILY RF: 0 albuterol sulfate 90 mcg/actuation HFA aerosol inhaler 2 puff inhalation Q4-6H PRN (Reason: Wheezing) RF: 0 loratadine 10 mg tablet 1 tab PO DAILY RF: 0 cholecalciferol (vitamin D3) 25 mcg (1,000 unit) tablet 1 tab PO DAILY RF: 0 Lantus Solostar U-100 Insulin 100 unit/mL (3 mL) insulin pen 25 unit subcut BEDTIME RF: 0 aspirin [Adult Aspirin Regimen] 81 mg tablet,delayed release (DR/EC) 81 mg PO DAILY RF: 0 levothyroxine 175 mcg capsule 175 mcg PO DAILY RF: 0 atorvastatin 10 mg tablet 10 mg PO DAILY RF: 0 Trulicity 0.75 mg/0.5 mL pen injector 0.75 mg subcut QWEEK RF: 0 amitriptyline 25 mg tablet 25 mg PO BEDTIME RF: 0 Flovent Diskus 50 mcg/actuation blister with device 1 inh inhalation BID RF: 0 metformin 1,000 mg tablet 1,000 mg PO BID RF: 0 Referrals: Physician,Unknown J [Primary Care Provider] - 2 days Interventions: ED Discharge Assessment Last Done: 07/10/21 18:52 Discharge Date/Time: 07/10/21 18:53 Print Language: Citizen Of [place]
[2021-07-10 17:43] LABS: COVID-19 Test Negative (Negative)
== END 2021-07-10 18:53 | disposition home or self-care (01) ==
PROVIDERS: Emergency Provider Emergency Medicine
DX: B34.9 Viral infection, unspecified (principal); Z20.822 Contact with and (suspected) exposure to COVID-19; E11.9 Type 2 diabetes mellitus without complications; E78.5 Hyperlipidemia, unspecified; I10 Essential (primary) hypertension; Z79.4 Long term (current) use of insulin; Z79.899 Other long term (current) drug therapy; Z79.02 Long term (current) use of antithrombotics/antiplatelets
CPT/HCPCS: 87635; 99283

== ENCOUNTER → 2021-10-26 12:45 | Outpatient (BNVA) | payer MEDICARE, MEDICAID, SELFPAY | PROVIDERS: Referring Provider Nurse Practitioner; Visit Provider Physician Assistant | DX: K21.9 Gastro-esophageal reflux disease without esophagitis (principal); A04.8 Other specified bacterial intestinal infections | CPT/HCPCS: 99212 ==

== ENCOUNTER → 2021-11-09 10:06 | Outpatient (BNVA) | payer MEDICARE, MEDICAID, SELFPAY | PROVIDERS: Referring Provider Nurse Practitioner; Visit Provider Physician Assistant | DX: Z13.89 Encounter for screening for other disorder (principal) | CPT/HCPCS: 99211 ==

== ENCOUNTER 2021-11-09 14:37 | Outpatient (REF) | payer MEDICARE, MEDICAID, SELFPAY ==
[2021-11-10 11:50] LABS: H Pylori Breath Test Positive (Negative)
== END 2021-11-09 14:38 | disposition home or self-care (01) ==
LOC: HO.LNP 14:37
PROVIDERS: Visit Provider Physician Assistant
DX: Z11.0 Encounter for screening for intestinal infectious diseases (principal)
CPT/HCPCS: 83013; 99211

== ENCOUNTER 2022-05-02 11:19 | Outpatient (REF) | payer MEDICARE, MEDICAID, SELFPAY ==
--- NOTE | ~2022-05-02 | MM_ITS ---
EXAMINATION: MM SCREENING DIGITAL BREAST TOMOSYNTHESIS, BILATERAL CLINICAL INFORMATION: Screening. Asymptomatic. COMPARISON: Mammography: 01/23/2021, 02/07/2017 (baseline). TECHNIQUE: Digital breast tomosynthesis is performed in both the craniocaudal and mediolateral oblique views along with computer-aided detection (CAD). Synthesized 2D images are generated from the tomosynthesis. FINDINGS: There are scattered areas of fibroglandular density (ACR BI-RADS breast composition Category b). There are no significant masses, abnormal calcifications, or other abnormalities. No developing density or interval architectural abnormality. The axilla and skin contours are unremarkable. MM/MM tomosynthesis screening BI IMPRESSION: No mammographic evidence of malignancy. ASSESSMENT: BI-RADS 1: Negative RECOMMENDATION: Routine annual mammography screening. This patient's information was entered into a reminder system with a target due date for their next mammogram.
== END 2022-05-02 11:20 | disposition home or self-care (01) ==
LOC: HO.MAMMO 11:19
PROVIDERS: Visit Provider Registered Nurse
DX: Z12.31 Encounter for screening mammogram for malignant neoplasm of breast (principal)
CPT/HCPCS: 77063; 77067

== ENCOUNTER → 2022-06-14 10:41 | Outpatient (BNVA) | payer MEDICARE, MEDICAID, SELFPAY | PROVIDERS: PCP Registered Nurse; Visit Provider Surgery | DX: L72.0 Epidermal cyst (principal) | CPT/HCPCS: 99202 ==

== ENCOUNTER 2022-07-13 10:19 | Outpatient (REF) | payer MEDICARE, MEDICAID, SELFPAY ==
[2022-07-13 10:23] VITALS: BP 131/73; PULSE 115; RESP 19; TEMP 36.4; O2SAT 99; BMI 31.8
--- NOTE | 2022-07-13 11:29 | W.PM.OPN ---
Operative Note Operative Note Date of Service: 07/13/22 Narrative: Preoperative diagnosis: Epidermal inclusion cyst right axilla and left chest Postoperative diagnosis: Same Procedure: Excision of epidermal inclusion cyst right axilla and left chest Surgeon: Matty Pitts MD Last Model Maker: None Anesthesia: Local lidocaine 1% with epinephrine Indications for procedure: 51-year-old female presenting with complaints of a painful cyst located in the left anterior chest which is increasing in size. She also reports a painful cyst located in the right axilla at the site of previous cyst excisions. She has requested excision of both symptomatic cyst. On examination the right left chest cyst measures approximately 1 cm in diameter and is tender to palpation. There is a bluish discoloration to the overlying skin. The right axillary cyst measures 1 cm in diameter with no evidence of abscess or cellulitis. Operative findings: Epidermal inclusion cyst of left chest and right axilla as noted above. Specimen: Epidermal inclusion cyst left chest and right axilla Estimated blood loss: 2 mL Complications: None Procedure details: Patient was brought to the minor surgery suite placed in a supine position. The site of surgery was confirmed by the patient in the left chest and right axilla. After assuring informed consent the skin was prepped with Betadine and draped in sterile fashion. Beginning in the right axilla elliptical incision oriented transversely was then created with a scalpel. This was carried out through subcutaneous tissue and around the cyst wall. Lesion was excised and sent to pathology for further examination. Skin was then closed using interrupted 3-0 Prolene sutures. Attention was then directed to the left chest where again an elliptical incision was created with a scalpel. This was oriented transversely as well. The incision was carried out through subcutaneous tissue and around the cyst wall. The lesion was sent to pathology for further examination. Skin was then closed using interrupted 3-0 Prolene sutures. Dressings were applied including 2 x 2 gauze, Tegaderm at both sites. Patient tolerated the procedure well. She was discharged to home in stable condition.
== END 2022-07-13 10:20 | disposition home or self-care (01) ==
LOC: HO.MS 10:19
PROVIDERS: PCP Registered Nurse; Visit Provider Surgery
PROC: (CPT 11401; principal; 2022-07-13 11:00)
DX: L72.0 Epidermal cyst (principal); I10 Essential (primary) hypertension; G47.33 Obstructive sleep apnea (adult) (pediatric); J45.909 Unspecified asthma, uncomplicated; E11.9 Type 2 diabetes mellitus without complications; Z79.4 Long term (current) use of insulin; Z79.82 Long term (current) use of aspirin; Z79.899 Other long term (current) drug therapy; Z88.0 Allergy status to penicillin; Z88.2 Allergy status to sulfonamides; Z88.8 Allergy status to other drugs, medicaments and biological substances; Z91.040 Latex allergy status
CPT/HCPCS: 11401 ×2; 88304

== ENCOUNTER → 2022-07-20 10:14 | Outpatient (BNVA) | payer MEDICARE, MEDICAID, SELFPAY | PROVIDERS: PCP Registered Nurse; Referring Provider Registered Nurse; Visit Provider Surgery | DX: Z13.89 Encounter for screening for other disorder (principal) | CPT/HCPCS: 99212 ==

== ENCOUNTER 2022-08-20 14:10 | Emergency (ER) | payer MEDICARE, MEDICAID, SELFPAY ==
--- NOTE | ~2022-08-20 | XR_ITS ---
EXAMINATION: PORTABLE CHEST 1 VIEW CLINICAL INFORMATION: hyperglycemia . COMPARISON: 02/08/2008. TECHNIQUE: Portable frontal view of the chest was obtained. FINDINGS: The lungs are well expanded. No focal infiltrate, effusion, edema, or pneumothorax. Cardiac and mediastinal silhouettes are within normal limits for technique. No acute bony abnormality seen. Degenerative changes in the spine and shoulders. XR/XR chest 1V IMPRESSION: No evidence of acute disease.
[2022-08-20 14:21] VITALS: BP 125/80; PULSE 131; RESP 18; TEMP 36.8; O2SAT 95; BMI 32.1
--- NOTE | 2022-08-20 14:22 | ED_ITS ---
HPI - General Adult General Chief complaint: General Medical <SUKHWINDER New - Last Filed: 08/20/22 14:24> Stated complaint: HBS 430 <SUKHWINDER New - Last Filed: 08/20/22 14:24> Time Seen by Provider: 08/20/22 15:40 <SUKHWINDER New - Last Filed: 08/20/22 14:24> Source: patient <SUKHWINDER Urbano - Last Filed: 08/20/22 18:22> Mode of arrival: ambulatory <SUKHWINDER Urbano - Last Filed: 08/20/22 18:22> History of Present Illness HPI narrative: 52-year-old female with a past medical history anxiety, depression, arthritis, asthma, diabetes, HLD, GERD, HTN from migraines, CARMEN on CPAP, thyroid disease, presenting to the ED complaining of elevated glucose at home since this morning. Reports [id number] passed this morning, admits her usual response to increased stress is hyperglycemia. Reports taking all morning medications. Reports recent addition Januvia to medication regimen. Admits to associated n ausea, blurry vision, and lightheadedness with elevated glucose. Denies missing any doses of her diabetic meds. Also reports recent URI. Denies current fever, chills, CP/SOB, abdominal pain, dysuria/hematuria <SUKHWINDER Urbano - Last Filed: 08/20/22 18:22> Onset (ago): hour(s) <SUKHWINDER Urbano - Last Filed: 08/20/22 18:22> Related Data Home medications: Home Medications Medication Instructions Recorded Confirmed amitriptyline 25 mg tablet 25 mg PO BEDTIME 08/01/20 07/20/22 aspirin 81 mg tablet,delayed 81 mg PO DAILY 08/01/20 07/20/22 release (Adult Aspirin Regimen) atorvastatin 10 mg tablet 10 mg PO DAILY 08/01/20 07/20/22 dulaglutide 0.75 mg/0.5 mL 0.75 mg subcut QWEEK 08/01/20 07/20/22 subcutaneous pen injector (Trulicity) metformin 1,000 mg tablet 1,000 mg PO BID 08/08/20 07/20/22 acetaminophen 300 mg-codeine 30 mg 1 tab PO Q12H PRN Pain 03/19/21 01/20/23 tablet albuterol sulfate 90 mcg/actuation 2 puff inhalation Q4-6H PRN 09/16/20 07/20/22 aerosol inhaler Wheezing cholecalciferol (vitamin D3) 25 1 tab PO DAILY 09/16/20 07/20/22 mcg (1,000 unit) tablet insulin glargine 100 unit/mL (3 25 unit subcut BEDTIME 09/16/20 07/20/22 mL) subcutaneous pen (Lantus Solostar U-100 Insulin) lisinopril 5 mg tablet 1 tab PO DAILY 09/16/20 07/20/22 loratadine 10 mg tablet 1 tab PO DAILY 09/16/20 07/20/22 empagliflozin 25 mg tablet mg PO DAILY 10/26/21 07/20/22 (Jardiance) fluticasone propionate 50 intranasal 10/26/21 07/20/22 mcg/actuation nasal spray,suspension gabapentin 100 mg capsule mg PO BEDTIME PRN 10/26/21 07/20/22 levothyroxine 175 mcg tablet mcg PO DAILY 10/26/21 07/20/22 pantoprazole 40 mg tablet,delayed mg PO 10/26/21 07/20/22 release Previous Rx's Medication Instructions Recorded sucralfate 100 mg/mL oral 10 ml PO BID 2 weeks #280 mL 10/26/21 suspension (Carafate) bismuth subsalicylate 262 mg 2 tab PO QID 14 days #112 tabs 11/13/21 chewable tablet (Bismuth) doxycycline monohydrate 100 mg 100 mg PO BID 14 days #28 tabs 11/13/21 tablet metronidazole 250 mg tablet 250 mg PO QID 14 days #56 tabs 11/13/21 omeprazole 20 mg capsule,delayed 20 mg PO BID 14 days #28 caps 11/13/21 release <SUKHWINDER New - Last Filed: 08/20/22 14:24> Allergies/adverse reactions: Allergies Allergy/AdvReac Type Severity Reaction Status Date / Time erythromycin base Allergy Severe HIVES Verified 08/20/22 14:21 [Erythromycin Base] Penicillins Allergy Severe HIVES Verified 08/20/22 14:21 adhesive tape [ADHESIVE TAPE] Allergy Unknown RASH Verified 08/20/22 14:21 furosemide Allergy Unknown rash Verified 08/20/22 14:21 latex [LATEX] Allergy Unknown RASH Verified 08/20/22 14:21 Sulfa (Sulfonamide Allergy Unknown DIZZINESS, Verified 08/20/22 14:21 Antibiotics) VOMITTING, [SULFA(SULFONAMIDE rash ANTIBIOTICS)] tolterodine [Detrol] Allergy Unknown rash Verified 08/20/22 14:21 <SUKHWINDER New - Last Filed: 08/20/22 14:24> Review of Systems Review of Systems: Constitutional: No Fever, No Chills, No Fatigue, No Malaise ENT/Mouth: No Hearing loss, No Ear Pain, No sore throat, No Rhinorrhea, No Swallowing Difficulty Eyes: No Eye Pain, No Swelling, No Redness, + Vision Changes Cardiovascular: No Chest Pain, No SOB, No Dyspnea on Exertion, No Orthopnea, No Edema, No Palpitations Respiratory: No Cough, No Sputum, No Dyspnea Gastrointestinal: + Nausea, No Vomiting, No Diarrhea, No Constipation, No Abdominal pain Genitourinary: No Dysuria,No Hematuria, No Flank Pain Musculoskeletal: No joint pain, No Myalgias, No Joint Swelling Skin: No Skin Lesions, No rash Neuro: No Weakness, No Numbness, No Paresthesias, No Loss of Consciousness, + lightheaded, No Headache <SUKHWINDER Urbano - Last Filed: 08/20/22 18:22> Yes all other systems are reviewed and are negative <SUKHWINDER Urbano - Last Filed: 08/20/22 18:22> Constitutional: Constitutional: Reports as per HPI <SUKHWINDER Urbano - Last Filed: 08/20/22 18:22> Neurologic: Denies Abnormal speech present <SUKHWINDER Urbano - Last Filed: 08/20/22 18:22> [facility] Past Medical History Attestation statement: The following information was validated with the patient. <SUKHWINDER Urbano - Last Filed: 08/20/22 18:22> Medical History: Medical History Anxiety and depression Arthritis Asthma Carpal tunnel syndrome Diabetes mellitus Elevated cholesterol GERD (gastroesophageal reflux disease) HTN (hypertension) Hx of migraines CARMEN on CPAP PONV (postoperative nausea and vomiting) Thyroid disease <SUKHWINDER New - Last Filed: 08/20/22 14:24> Surgical History: Surgical History History of appendectomy History of cholecystectomy History of esophagogastroduodenoscopy (EGD) History of excision of epidermal inclusion cyst (07/13/22) History of excision of mass History of incisional hernia repair History of lymph node excision Hx of arthroscopy of left knee Hx of colonoscopy <SUKHWINDER New - Last Filed: 08/20/22 14:24> Family History Family History: Family History Father No problems noted. Mother No problems noted. <SUKHWINDER New - Last Filed: 08/20/22 14:24> Social History Social History: Social History Household Members: Spouse and Children Household Members Other:: lives with son Are you a primary home health care social worker to a significant other at home: No Alcohol intake: never Patient Tobacco Use Status: Never used Tobacco Cigarettes Per Day: 3 Smoked in Last 30 Days: Yes Use of substances other than those prescribed or required for medical reasons: No Advance Directives: No Advance Directives Information Provided: No Current occupational status: unemployed <SUKHWINDER New - Last Filed: 08/20/22 14:24> Physical Exam ED Vital Signs: Vital Signs - 24 hr 08/20/22 14:21 08/20/22 16:00 08/20/22 17:38 Temperature 98.3 F 98.8 F 98.8 F Pulse Rate 131 H 119 H 102 H Respiratory Rate 18 16 16 Blood Pressure 125/80 153/77 H 105/68 Pulse Oximetry 95 98 98 Oxygen Delivery Method Room Air Room Air Room Air BMI result Body Mass Index 32.1 <SUKHWINDER New - Last Filed: 08/20/22 14:24> Vital Signs - 24 hr 08/20/22 14:21 08/20/22 16:00 08/20/22 17:38 Temperature 98.3 F 98.8 F 98.8 F Pulse Rate 131 H 119 H 102 H Respiratory Rate 18 16 16 Blood Pressure 125/80 153/77 H 105/68 Pulse Oximetry 95 98 98 Oxygen Delivery Method Room Air Room Air Room Air BMI result Body Mass Index 32.1 <SUKHWINDER Urbano - Last Filed: 08/20/22 18:22> Const General: cooperative, healthy appearing and no acute distress <SUKHWINDER Urbano - Last Filed: 08/20/22 18:22> Orientation/consciousness: patient oriented x3 <SUKHWINDER Urbano - Last Filed: 08/20/22 18:22> Limitations: no limitations <SUKHWINDER Urbano - Last Filed: 08/20/22 18:22> HENMT Head: Yes normal to inspection and Yes atraumatic <SUKHWINDER Urbano - Last Filed: 08/20/22 18:22> Ears: hearing grossly normal bilaterally <SUKHWINDER Urbano - Last Filed: 08/20/22 18:22> General nose exam: Normal external nose present <SUKHWINDER Urbano - Last Filed: 08/20/22 18:22> Face and sinus: Yes normal facial exam <SUKHWINDER Urbano - Last Filed: 08/20/22 18:22> Eyes General: appearance normal, both eyes and all related structures <SUKHWINDER Urbano - Last Filed: 08/20/22 18:22> EOM: EOMs intact bilaterally <SUKHWINDER Urbano - Last Filed: 08/20/22 18:22> Neck Neck: Yes normal visual inspection and Yes no meningeal signs <SUKHWINDER Urbano - Last Filed: 08/20/22 18:22> Resp Effort & Inspection: normal respiratory effort and no respiratory distress <SUKHWINDER Urbano - Last Filed: 08/20/22 18:22> Auscultation: clear to auscultation bilaterally and no wheezes <SUKHWINDER Urbano - Last Filed: 08/20/22 18:22> Cardio Rate: regular rate <SUKHWINDER Urbano - Last Filed: 08/20/22 18:22> Heart sounds: S1 normal heart sound present and S2 normal heart sound present <SUKHWINDER Urbano - Last Filed: 08/20/22 18:22> GI Inspection: Yes normal to inspection <Rosalinda Talbot PA - Last Filed: 08/20/22 18:22> Palpation (GI): Soft to palpation, nontender, no guarding and not rigid <Rosalinda Talbot PA - Last Filed: 08/20/22 18:22> General: Yes no CVA tenderness <Rosalinda Talbot PA - Last Filed: 08/20/22 18:22> Back/Spine/Pelvis Back: no CVA tenderness <Rosalinda Talbot PA - Last Filed: 08/20/22 18:22> Skin Rashes: no rashes <Rosalinda Talbot PA - Last Filed: 08/20/22 18:22> Wounds: no wounds <Rosalinda Talbot PA - Last Filed: 08/20/22 18:22> Neuro General: patient oriented x3, gait normal, tone normal, moves all extremities, no meningeal signs, no focal motor deficits and CN's II-XI intact bilaterally <Rosalinda Talbot PA - Last Filed: 08/20/22 18:22> Cranial nerves: Yes CN's II-XII intact bilaterally and Yes Bilaterally intact EOM present <Rosalinda Talbot PA - Last Filed: 08/20/22 18:22> Cognition (Neuro): normal cognition <Rosalinda Talbot PA - Last Filed: 08/20/22 18:22> Speech: No Abnormal speech present <Rosalinda Talbot PA - Last Filed: 08/20/22 18:22> Gait exam (Neuro): Normal gait present <Rosalinda Talbot PA - Last Filed: 08/20/22 18:22> Motor exam (neuro): 5/5 motor strength present throughout <Rosalinda Talbot PA - Last Filed: 08/20/22 18:22> Extrem General: Yes normal to inspection and Yes no pedal edema <Rosalinda Talbot PA - Last Filed: 08/20/22 18:22> Course Course Course Narrative: RME - 52 yo female with history fo DM2 on insulin, HLD, GERD presents to the ER for evaluation of hyperglycemia. She reports glucose was 430 after eating, was 200 before. She reports feeling nauseated and dizzy. She took her 27 units of lantus and came to the ER for evaluation. Reports compliance with insulin. No vomiting or abdominal pain. Doubt DKA. Will check labs and plan to treat with IVF if remains elevated. <SUKHWINDER New - Last Filed: 08/20/22 14:24> RME - 52 yo female with history fo DM2 on insulin, HLD, GERD presents to the ER for evaluation of hyperglycemia. She reports glucose was 430 after eating, was 200 before. She reports feeling nauseated and dizzy. She took her 27 units of lantus and came to the ER for evaluation. Reports compliance with insulin. No vomiting or abdominal pain. Doubt DKA. Will check labs and plan to treat with IVF if remains elevated. -1742--leukocytosis of 14.6 (appears chronic) no evidence of infection at this time. Random glucose 384, no anion gap. Acetone negative. No evidence of DKA >> repeat POC 282 > will repeat again after IV fluids -UA with greater than a 1000 glucose -1815--repeat POC 133, patient did not or receive previously ordered insulin. Glucose came down with IV alone -CXR unremarkable Results discussed with patient including worrisome signs and symptoms and strict return precautions, and when to return to the emergency department. They verbalized understanding and feel safe for discharge at this time. <SUKHWINDER Urbano - Last Filed: 08/20/22 18:22> Medications Administered Discontinued Medications Generic Name Dose Route Start Last Admin Trade Name Freq PRN Reason Stop Dose Admin Sodium Chloride 1,000 mls @ 999 mls/hr 08/20/22 14:30 08/20/22 16:45 Ns IVCONT 08/20/22 15:30 999 mls/hr .Q1H1M COCO Administration <SUKHWINDER New - Last Filed: 08/20/22 14:24> Medications Administered Discontinued Medications Generic Name Dose Route Start Last Admin Trade Name Freq PRN Reason Stop Dose Admin Sodium Chloride 1,000 mls @ 999 mls/hr 08/20/22 14:30 08/20/22 16:45 Ns IVCONT 08/20/22 15:30 999 mls/hr .Q1H1M COCO Administration <SUKHWINDER Urbano - Last Filed: 08/20/22 18:22> Medical Decision Making Medical Decision Making MDM Narrative: 52-year-old female with a past medical history anxiety, depression, arthritis, asthma, diabetes, HLD, GERD, HTN from migraines, CARMEN on CPAP, thyroid disease, presenting to the ED complaining of elevated glucose at home since this morning. On exam tachycardic, NAD, nontoxic appearing, exam otherwise nonfocal. Concern for hyperglycemia due to outside stressors vs new medication changes. Lower suspicion for DKA. Rule out metabolic abnormalities and infectious etiology Low suspicion for severe sepsis at this time. Tachycardia likely related to anxiety/stress Plan: EKG, labs, UA, IVF, reassess <SUKHWINDER Urbano - Last Filed: 08/20/22 18:22> Differential Diagnosis Differential Diagnoses: The differential diagnosis associated with the presentation includes <SUKHWINDER Urbano - Last Filed: 08/20/22 18:22> as above <SUKHWINDER Urbano - Last Filed: 08/20/22 18:22> Lab Data [facility] Lab Attestation statement: I reviewed the patient's lab results. <SUKHWINDER Urbano - Last Filed: 08/20/22 18:22> Result Diagrams: 08/20/22 14:46 08/20/22 14:46 <SUKHWINDER New - Last Filed: 08/20/22 14:24> Labs: Lab Results 08/20/22 08/20/22 08/20/22 Range/Units 14:46 14:46 14:46 WBC 14.6 H (4.8-10.8) X10*3/uL RBC 4.78 D (4.20-5.50) X10*6/uL Hgb 14.4 (12.0-16.0) g/dl Hct 44.3 D (37.0-47.0) % MCV 92.7 (80.0-98.0) fL MCH 30.1 (27.0-33.0) pg MCHC 32.5 (31.0-35.0) g/dl RDW 12.8 (11.0-16.0) % Plt Count 418 H (160-400) X10*3/uL MPV 10.5 (9.4-12.3) fL Immature Gran % (Auto) 0.5 H (0.0-0.4) % Neut % (Auto) 60.5 (45-73) % Lymph % (Auto) 31.8 (20-40) % [place] % (Auto) 4.7 (2-11) % Eos % (Auto) 2.2 (0-4) % Baso % (Auto) 0.3 (0-2) % Lymph # (Auto) 4.6 (1.2-4.9) X10*3/uL [place] # (Auto) 0.7 (0.1-1.2) X10*3/uL Eos # (Auto) 0.3 (0.0-0.4) X10*3/uL Baso # (Auto) 0.1 (0.0-0.2) X10*3/uL Abs Immat Gran (auto) 0.07 H (0.00-0.03) X10*3/uL Absolute Neuts (auto) 8.8 H (2.0-8.3) x10*3/uL Absolute Nucleated RBC 0.000 (0.0-0.012) X10*3/uL Nucleated RBC % (auto) 0.0 (0.0-0.2) /100WBC VBG pH (7.32-7.43) VBG pCO2 mmHg VBG pO2 mmHg VBG HCO3 (22-26) mmol/L VBG O2 Saturation % VBG Base Excess mmol/L Sodium 134 L (135-145) mmol/L Potassium 4.0 (3.3-5.1) mmol/L Chloride 100 (96-108) mmol/L Carbon Dioxide 20 L (22-29) mmol/L Anion Gap 18 (12-20) BUN 12 (9-16) mg/dL Creatinine 0.93 (0.5-1.4) mg/dL Estim Creat Clear Calc 68.4 Estimated GFR > 60 POC Glucose (60-115) mg/dL Random Glucose 384 H* (60-115) mg/dL Lactic Acid (0.5-2.0) mmol/L Calcium 9.5 (8.4-10.2) mg/dL Magnesium 1.7 (1.6-2.6) mg/dL Total Bilirubin 0.5 (0.0-1.0) mg/dL Direct Bilirubin < 0.2 (0.0-0.5) mg/dL AST 11 (5-31) U/L ALT 15 (0-31) U/L Alkaline Phosphatase 112 (39-117) U/L Troponin I High Sens < 3.5 (<3.5-17.0) ng/L Total Protein 7.0 (6.5-8.0) g/dL Albumin 4.1 (3.5-5.0) g/dL Lipase 28 (8-78) U/L Urine Color Urine Appearance Urine pH (5.0-9.0) Ur Specific [place] (1.005-1.025) Urine Protein (Neg-Trace) mg/dL Urine Glucose (UA) (Negative) mg/dL Urine Ketones (Negative) mg/dL Urine Blood (Negative) Urine Nitrite (Negative) Ur Leukocyte Esterase (Negative) Urine RBC (0-2) /HPF Urine WBC (0-5) /HPF Ur Squamous Epith Cells (0-2) /HPF Urine Bacteria (None Seen) Hyaline Casts (0-2) /LPF Urine Yeast Acetone, Qual Negative (Negative) 08/20/22 08/20/22 08/20/22 Range/Units 16:06 16:18 16:22 WBC (4.8-10.8) X10*3/uL RBC (4.20-5.50) X10*6/uL Hgb (12.0-16.0) g/dl Hct (37.0-47.0) % MCV (80.0-98.0) fL MCH (27.0-33.0) pg MCHC (31.0-35.0) g/dl RDW (11.0-16.0) % Plt Count (160-400) X10*3/uL MPV (9.4-12.3) fL Immature Gran % (Auto) (0.0-0.4) % Neut % (Auto) (45-73) % Lymph % (Auto) (20-40) % [place] % (Auto) (2-11) % Eos % (Auto) (0-4) % Baso % (Auto) (0-2) % Lymph # (Auto) (1.2-4.9) X10*3/uL [place] # (Auto) (0.1-1.2) X10*3/uL Eos # (Auto) (0.0-0.4) X10*3/uL Baso # (Auto) (0.0-0.2) X10*3/uL Abs Immat Gran (auto) (0.00-0.03) X10*3/uL Absolute Neuts (auto) (2.0-8.3) x10*3/uL Absolute Nucleated RBC (0.0-0.012) X10*3/uL Nucleated RBC % (auto) (0.0-0.2) /100WBC VBG pH 7.41 (7.32-7.43) VBG pCO2 34 mmHg VBG pO2 51 mmHg VBG HCO3 22 (22-26) mmol/L VBG O2 Saturation 83.0 % VBG Base Excess -1.8 mmol/L Sodium (135-145) mmol/L Potassium (3.3-5.1) mmol/L Chloride (96-108) mmol/L Carbon Dioxide (22-29) mmol/L Anion Gap (12-20) BUN (9-16) mg/dL Creatinine (0.5-1.4) mg/dL Estim Creat Clear Calc Estimated GFR POC Glucose 282 H (60-115) mg/dL Random Glucose (60-115) mg/dL Lactic Acid 2.0 (0.5-2.0) mmol/L Calcium (8.4-10.2) mg/dL Magnesium (1.6-2.6) mg/dL Total Bilirubin (0.0-1.0) mg/dL Direct Bilirubin (0.0-0.5) mg/dL AST (5-31) U/L ALT (0-31) U/L Alkaline Phosphatase (39-117) U/L Troponin I High Sens (<3.5-17.0) ng/L Total Protein (6.5-8.0) g/dL Albumin (3.5-5.0) g/dL Lipase (8-78) U/L Urine Color Urine Appearance Urine pH (5.0-9.0) Ur Specific [place] (1.005-1.025) Urine Protein (Neg-Trace) mg/dL Urine Glucose (UA) (Negative) mg/dL Urine Ketones (Negative) mg/dL Urine Blood (Negative) Urine Nitrite (Negative) Ur Leukocyte Esterase (Negative) Urine RBC (0-2) /HPF Urine WBC (0-5) /HPF Ur Squamous Epith Cells (0-2) /HPF Urine Bacteria (None Seen) Hyaline Casts (0-2) /LPF Urine Yeast Acetone, Qual (Negative) 08/20/22 08/20/22 Range/Units 17:00 18:14 WBC (4.8-10.8) X10*3/uL RBC (4.20-5.50) X10*6/uL Hgb (12.0-16.0) g/dl Hct (37.0-47.0) % MCV (80.0-98.0) fL MCH (27.0-33.0) pg MCHC (31.0-35.0) g/dl RDW (11.0-16.0) % Plt Count (160-400) X10*3/uL MPV (9.4-12.3) fL Immature Gran % (Auto) (0.0-0.4) % Neut % (Auto) (45-73) % Lymph % (Auto) (20-40) % [place] % (Auto) (2-11) % Eos % (Auto) (0-4) % Baso % (Auto) (0-2) % Lymph # (Auto) (1.2-4.9) X10*3/uL [place] # (Auto) (0.1-1.2) X10*3/uL Eos # (Auto) (0.0-0.4) X10*3/uL Baso # (Auto) (0.0-0.2) X10*3/uL Abs Immat Gran (auto) (0.00-0.03) X10*3/uL Absolute Neuts (auto) (2.0-8.3) x10*3/uL Absolute Nucleated RBC (0.0-0.012) X10*3/uL Nucleated RBC % (auto) (0.0-0.2) /100WBC VBG pH (7.32-7.43) VBG pCO2 mmHg VBG pO2 mmHg VBG HCO3 (22-26) mmol/L VBG O2 Saturation % VBG Base Excess mmol/L Sodium (135-145) mmol/L Potassium (3.3-5.1) mmol/L Chloride (96-108) mmol/L Carbon Dioxide (22-29) mmol/L Anion Gap (12-20) BUN (9-16) mg/dL Creatinine (0.5-1.4) mg/dL Estim Creat Clear Calc Estimated GFR POC Glucose 133 H (60-115) mg/dL Random Glucose (60-115) mg/dL Lactic Acid (0.5-2.0) mmol/L Calcium (8.4-10.2) mg/dL Magnesium (1.6-2.6) mg/dL Total Bilirubin (0.0-1.0) mg/dL Direct Bilirubin (0.0-0.5) mg/dL AST (5-31) U/L ALT (0-31) U/L Alkaline Phosphatase (39-117) U/L Troponin I High Sens (<3.5-17.0) ng/L Total Protein (6.5-8.0) g/dL Albumin (3.5-5.0) g/dL Lipase (8-78) U/L Urine Color Yellow Urine Appearance Clear Urine pH 6.5 (5.0-9.0) Ur Specific [place] >= 1.030 H (1.005-1.025) Urine Protein Negative (Neg-Trace) mg/dL Urine Glucose (UA) >=1000 H (Negative) mg/dL Urine Ketones Negative (Negative) mg/dL Urine Blood Negative (Negative) Urine Nitrite Negative (Negative) Ur Leukocyte Esterase Negative (Negative) Urine RBC 0-2 (0-2) /HPF Urine WBC 0-5 (0-5) /HPF Ur Squamous Epith Cells 0-2 (0-2) /HPF Urine Bacteria Trace (None Seen) Hyaline Casts 0-2 (0-2) /LPF Urine Yeast Present Acetone, Qual (Negative) <SUKHWINDER New - Last Filed: 08/20/22 14:24> Lab Results 08/20/22 08/20/22 08/20/22 Range/Units 14:46 14:46 14:46 WBC 14.6 H (4.8-10.8) X10*3/uL RBC 4.78 D (4.20-5.50) X10*6/uL Hgb 14.4 (12.0-16.0) g/dl Hct 44.3 D (37.0-47.0) % MCV 92.7 (80.0-98.0) fL MCH 30.1 (27.0-33.0) pg MCHC 32.5 (31.0-35.0) g/dl RDW 12.8 (11.0-16.0) % Plt Count 418 H (160-400) X10*3/uL MPV 10.5 (9.4-12.3) fL Immature Gran % (Auto) 0.5 H (0.0-0.4) % Neut % (Auto) 60.5 (45-73) % Lymph % (Auto) 31.8 (20-40) % [place] % (Auto) 4.7 (2-11) % Eos % (Auto) 2.2 (0-4) % Baso % (Auto) 0.3 (0-2) % Lymph # (Auto) 4.6 (1.2-4.9) X10*3/uL [place] # (Auto) 0.7 (0.1-1.2) X10*3/uL Eos # (Auto) 0.3 (0.0-0.4) X10*3/uL Baso # (Auto) 0.1 (0.0-0.2) X10*3/uL Abs Immat Gran (auto) 0.07 H (0.00-0.03) X10*3/uL Absolute Neuts (auto) 8.8 H (2.0-8.3) x10*3/uL Absolute Nucleated RBC 0.000 (0.0-0.012) X10*3/uL Nucleated RBC % (auto) 0.0 (0.0-0.2) /100WBC VBG pH (7.32-7.43) VBG pCO2 mmHg VBG pO2 mmHg VBG HCO3 (22-26) mmol/L VBG O2 Saturation % VBG Base Excess mmol/L Sodium 134 L (135-145) mmol/L Potassium 4.0 (3.3-5.1) mmol/L Chloride 100 (96-108) mmol/L Carbon Dioxide 20 L (22-29) mmol/L Anion Gap 18 (12-20) BUN 12 (9-16) mg/dL Creatinine 0.93 (0.5-1.4) mg/dL Estim Creat Clear Calc 68.4 Estimated GFR > 60 POC Glucose (60-115) mg/dL Random Glucose 384 H* (60-115) mg/dL Lactic Acid (0.5-2.0) mmol/L Calcium 9.5 (8.4-10.2) mg/dL Magnesium 1.7 (1.6-2.6) mg/dL Total Bilirubin 0.5 (0.0-1.0) mg/dL Direct Bilirubin < 0.2 (0.0-0.5) mg/dL AST 11 (5-31) U/L ALT 15 (0-31) U/L Alkaline Phosphatase 112 (39-117) U/L Troponin I High Sens < 3.5 (<3.5-17.0) ng/L Total Protein 7.0 (6.5-8.0) g/dL Albumin 4.1 (3.5-5.0) g/dL Lipase 28 (8-78) U/L Urine Color Urine Appearance Urine pH (5.0-9.0) Ur Specific [place] (1.005-1.025) Urine Protein (Neg-Trace) mg/dL Urine Glucose (UA) (Negative) mg/dL Urine Ketones (Negative) mg/dL Urine Blood (Negative) Urine Nitrite (Negative) Ur Leukocyte Esterase (Negative) Urine RBC (0-2) /HPF Urine WBC (0-5) /HPF Ur Squamous Epith Cells (0-2) /HPF Urine Bacteria (None Seen) Hyaline Casts (0-2) /LPF Urine Yeast Acetone, Qual Negative (Negative) 08/20/22 08/20/22 08/20/22 Range/Units 16:06 16:18 16:22 WBC (4.8-10.8) X10*3/uL RBC (4.20-5.50) X10*6/uL Hgb (12.0-16.0) g/dl Hct (37.0-47.0) % MCV (80.0-98.0) fL MCH (27.0-33.0) pg MCHC (31.0-35.0) g/dl RDW (11.0-16.0) % Plt Count (160-400) X10*3/uL MPV (9.4-12.3) fL Immature Gran % (Auto) (0.0-0.4) % Neut % (Auto) (45-73) % Lymph % (Auto) (20-40) % [place] % (Auto) (2-11) % Eos % (Auto) (0-4) % Baso % (Auto) (0-2) % Lymph # (Auto) (1.2-4.9) X10*3/uL [place] # (Auto) (0.1-1.2) X10*3/uL Eos # (Auto) (0.0-0.4) X10*3/uL Baso # (Auto) (0.0-0.2) X10*3/uL Abs Immat Gran (auto) (0.00-0.03) X10*3/uL Absolute Neuts (auto) (2.0-8.3) x10*3/uL Absolute Nucleated RBC (0.0-0.012) X10*3/uL Nucleated RBC % (auto) (0.0-0.2) /100WBC VBG pH 7.41 (7.32-7.43) VBG pCO2 34 mmHg VBG pO2 51 mmHg VBG HCO3 22 (22-26) mmol/L VBG O2 Saturation 83.0 % VBG Base Excess -1.8 mmol/L Sodium (135-145) mmol/L Potassium (3.3-5.1) mmol/L Chloride (96-108) mmol/L Carbon Dioxide (22-29) mmol/L Anion Gap (12-20) BUN (9-16) mg/dL Creatinine (0.5-1.4) mg/dL Estim Creat Clear Calc Estimated GFR POC Glucose 282 H (60-115) mg/dL Random Glucose (60-115) mg/dL Lactic Acid 2.0 (0.5-2.0) mmol/L Calcium (8.4-10.2) mg/dL Magnesium (1.6-2.6) mg/dL Total Bilirubin (0.0-1.0) mg/dL Direct Bilirubin (0.0-0.5) mg/dL AST (5-31) U/L ALT (0-31) U/L Alkaline Phosphatase (39-117) U/L Troponin I High Sens (<3.5-17.0) ng/L Total Protein (6.5-8.0) g/dL Albumin (3.5-5.0) g/dL Lipase (8-78) U/L Urine Color Urine Appearance Urine pH (5.0-9.0) Ur Specific [place] (1.005-1.025) Urine Protein (Neg-Trace) mg/dL Urine Glucose (UA) (Negative) mg/dL Urine Ketones (Negative) mg/dL Urine Blood (Negative) Urine Nitrite (Negative) Ur Leukocyte Esterase (Negative) Urine RBC (0-2) /HPF Urine WBC (0-5) /HPF Ur Squamous Epith Cells (0-2) /HPF Urine Bacteria (None Seen) Hyaline Casts (0-2) /LPF Urine Yeast Acetone, Qual (Negative) 08/20/22 08/20/22 Range/Units 17:00 18:14 WBC (4.8-10.8) X10*3/uL RBC (4.20-5.50) X10*6/uL Hgb (12.0-16.0) g/dl Hct (37.0-47.0) % MCV (80.0-98.0) fL MCH (27.0-33.0) pg MCHC (31.0-35.0) g/dl RDW (11.0-16.0) % Plt Count (160-400) X10*3/uL MPV (9.4-12.3) fL Immature Gran % (Auto) (0.0-0.4) % Neut % (Auto) (45-73) % Lymph % (Auto) (20-40) % [place] % (Auto) (2-11) % Eos % (Auto) (0-4) % Baso % (Auto) (0-2) % Lymph # (Auto) (1.2-4.9) X10*3/uL [place] # (Auto) (0.1-1.2) X10*3/uL Eos # (Auto) (0.0-0.4) X10*3/uL Baso # (Auto) (0.0-0.2) X10*3/uL Abs Immat Gran (auto) (0.00-0.03) X10*3/uL Absolute Neuts (auto) (2.0-8.3) x10*3/uL Absolute Nucleated RBC (0.0-0.012) X10*3/uL Nucleated RBC % (auto) (0.0-0.2) /100WBC VBG pH (7.32-7.43) VBG pCO2 mmHg VBG pO2 mmHg VBG HCO3 (22-26) mmol/L VBG O2 Saturation % VBG Base Excess mmol/L Sodium (135-145) mmol/L Potassium (3.3-5.1) mmol/L Chloride (96-108) mmol/L Carbon Dioxide (22-29) mmol/L Anion Gap (12-20) BUN (9-16) mg/dL Creatinine (0.5-1.4) mg/dL Estim Creat Clear Calc Estimated GFR POC Glucose 133 H (60-115) mg/dL Random Glucose (60-115) mg/dL Lactic Acid (0.5-2.0) mmol/L Calcium (8.4-10.2) mg/dL Magnesium (1.6-2.6) mg/dL Total Bilirubin (0.0-1.0) mg/dL Direct Bilirubin (0.0-0.5) mg/dL AST (5-31) U/L ALT (0-31) U/L Alkaline Phosphatase (39-117) U/L Troponin I High Sens (<3.5-17.0) ng/L Total Protein (6.5-8.0) g/dL Albumin (3.5-5.0) g/dL Lipase (8-78) U/L Urine Color Yellow Urine Appearance Clear Urine pH 6.5 (5.0-9.0) Ur Specific [place] >= 1.030 H (1.005-1.025) Urine Protein Negative (Neg-Trace) mg/dL Urine Glucose (UA) >=1000 H (Negative) mg/dL Urine Ketones Negative (Negative) mg/dL Urine Blood Negative (Negative) Urine Nitrite Negative (Negative) Ur Leukocyte Esterase Negative (Negative) Urine RBC 0-2 (0-2) /HPF Urine WBC 0-5 (0-5) /HPF Ur Squamous Epith Cells 0-2 (0-2) /HPF Urine Bacteria Trace (None Seen) Hyaline Casts 0-2 (0-2) /LPF Urine Yeast Present Acetone, Qual (Negative) <SUKHWINDER Urbano Last Filed: 08/20/22 18:22> Independent Interpretation I performed an independent interpretation of an: EKG <SUKHWINDER Urbano Last Filed: 08/20/22 18:22> Interpretation: My interpretation sinus tachycardia rate of 125. QRS 60. QTC 464. No STEMI. No significant change when compared to priors. <SUKHWINDER Urbano Last Filed: 08/20/22 18:22> Radiology Impression Discussion of test interpretation with radiology: I have reviewed the radiologist's reading. <SUKHWINDER Urbano Last Filed: 08/20/22 18:22> Discharge Plan Discharge Clinical Impression: Hyperglycemia <SUKHWINDER New Last Filed: 08/20/22 14:24> Patient Disposition: Home, Self-Care <SUKHWINDER New Last Filed: 08/20/22 14:24> Instructions: Diabetic Hyperglycemia (ED) <SUKHWINDER New Last Filed: 08/20/22 14:24> Additional Instructions: Your sugar was high today. Please continue to monitor closely at home. Continue home prescribed medications. Make sure your staying hydrated If you are unable to control the sugars they are consistently greater than 300 return to the emergency department Additionally if your glucose is low, less than 60, eat something and return to the ED If you develop chest pain, shortness of breath, nausea/vomiting, you are unable to eat or drink return to the ED Tu nivel de az?car estaba alto hoy. Contin?e monitoreando de cerca en casa. Contin?e con los medicamentos recetados en casa. Aseg?rate de mantenerte hidratado Si no puede controlar los az?cares, son consistentemente superiores a 300, regrese al departamento de emergencias. Adem?s, si mclaughlin nivel de glucosa es bajo, menos de 60, coma algo y regrese al servicio de urgencias. Si desarrolla dolor en el pecho, dificultad para respirar, n?useas/v?mitos, no puede comer ni beber, regrese al servicio de urgencias. <SUKHWINDER New Last Filed: 08/20/22 14:24> Prescriptions: No Action metronidazole 250 mg tablet 250 mg PO QID 14 Days Qty: 56 0RF bismuth subsalicylate [Bismuth] 262 mg tablet,chewable 2 tab PO QID 14 Days Qty: 112 0RF omeprazole 20 mg capsule,delayed release(DR/EC) 20 mg PO BID 14 Days Qty: 28 0RF doxycycline monohydrate 100 mg tablet 100 mg PO BID 14 Days Qty: 28 0RF acetaminophen-codeine 300-30 mg tablet 1 tab PO Q12H PRN (Reason: Pain) lisinopril 5 mg tablet 1 tab PO DAILY albuterol sulfate 90 mcg/actuation HFA aerosol inhaler 2 puff inhalation Q4-6H PRN (Reason: Wheezing) loratadine 10 mg tablet 1 tab PO DAILY cholecalciferol (vitamin D3) 25 mcg (1,000 unit) tablet 1 tab PO DAILY Lantus Solostar U-100 Insulin 100 unit/mL (3 mL) insulin pen 25 unit subcut BEDTIME aspirin [Adult Aspirin Regimen] 81 mg tablet,delayed release (DR/EC) 81 mg PO DAILY atorvastatin 10 mg tablet 10 mg PO DAILY Trulicity 0.75 mg/0.5 mL pen injector 0.75 mg subcut QWEEK amitriptyline 25 mg tablet 25 mg PO BEDTIME metformin 1,000 mg tablet 1,000 mg PO BID fluticasone propionate 50 mcg/actuation spray,suspension intranasal pantoprazole 40 mg tablet,delayed release (DR/EC) PO Jardiance 25 mg tablet PO DAILY gabapentin 100 mg capsule PO BEDTIME PRN levothyroxine 175 mcg tablet PO DAILY sucralfate [Carafate] 100 mg/mL suspension 10 ml PO BID 14 Days Qty: 280 0RF <SUKHWINDER New - Last Filed: 08/20/22 14:24> Referrals: [place],Xi, GAMING SURVEILLANCE OBSERVER [Primary Care Provider] - <SUKHWINDER New - Last Filed: 08/20/22 14:24> Print Language: Ghanaian <SUKHWINDER New - Last Filed: 08/20/22 14:24>
--- NOTE | 2022-08-20 14:33 | ECG_ITS ---
Test Reason : hyperglycemia Blood Pressure : / mmHG Vent. Rate : 125 BPM Atrial Rate : 125 BPM P-R Int : 144 ms QRS Dur : 068 ms QT Int : 322 ms P-R-T Axes : 064 025 050 degrees QTc Int : 464 ms Sinus tachycardia Otherwise normal ECG When compared with ECG of 06-MAY-2021 08:03, No significant change was found Referred By: Génesis Whitehead Electronically Signed By:MARIELLE KELLEY
--- NOTE | 2022-08-20 14:48 | MHC.EDTECH ---
EKG completed and signed by . labs collected and sent
[2022-08-20 14:50] LABS: MANUAL DIFF FLAG NO
[2022-08-20 15:02] LABS: Basophils Absolute Auto 0.1 X10*3/uL (0.0-0.2); Basophils Percent Auto 0.3 % (0-2); Eosinophils Absolute Auto 0.3 X10*3/uL (0.0-0.4); Eosinophils Percent Auto 2.2 % (0-4); Hematocrit 44.3 % (37.0-47.0); Hemoglobin 14.4 g/dl (12.0-16.0); Imm Gran Abs Auto 0.07 X10*3/uL (0.00-0.03); Imm Gran Pct Auto 0.5 % (0.0-0.4); Lymphocytes Absolute Auto 4.6 X10*3/uL (1.2-4.9); Lymphocytes Percent Auto 31.8 % (20-40); Mean Corpuscular HGB Conc 32.5 g/dl (31.0-35.0); Mean Corpuscular Hemoglobin 30.1 pg (27.0-33.0); Mean Corpuscular Volume 92.7 fL (80.0-98.0); Mean Platelet Volume 10.5 fL (9.4-12.3); Monocytes Absolute Auto 0.7 X10*3/uL (0.1-1.2); Monocytes Percent Auto 4.7 % (2-11); Neutrophils Absolute Auto 8.8 x10*3/uL (2.0-8.3); Neutrophils Percent Auto 60.5 % (45-73); Platelet Count 418 X10*3/uL (160-400); Red Blood Count 4.78 X10*6/uL (4.20-5.50); Red Cell Distribution Width 12.8 % (11.0-16.0); White Blood Count 14.6 X10*3/uL (4.8-10.8)
[2022-08-20 15:13] LABS: Alanine Aminotransferase 15 U/L (0-31); Albumin Level 4.1 g/dL (3.5-5.0); Alkaline Phosphatase 112 U/L (39-117); Anion Gap 18 (12-20); Aspartate Amino Transferase 11 U/L (5-31); Bilirubin Direct < 0.2 mg/dL (0.0-0.5); Bilirubin Total 0.5 mg/dL (0.0-1.0); Blood Urea Nitrogen 12 mg/dL (9-16); Calcium 9.5 mg/dL (8.4-10.2); Carbon Dioxide 20 mmol/L (22-29); Chloride 100 mmol/L (96-108); Creatinine Clr Calc Pharmacy 68.4; Estimated Glomerular Filt Rate > 60; Glucose Random 384 mg/dL (60-115); Magnesium 1.7 mg/dL (1.6-2.6); Sodium 134 mmol/L (135-145)
[2022-08-20 15:20] LABS: Troponin-I High Sensitivity < 3.5 ng/L (<3.5-17.0)
[2022-08-20 16:00] VITALS: BP 153/77; PULSE 119; RESP 16; TEMP 37.1; O2SAT 98
--- NOTE | 2022-08-20 16:00 | MHC.EDTECH ---
THIS PCT ASSUMED CARE OF PT AT 1500 ,PT 1600 ROUNDING AND VITALS SIGN TAKEN ,LAB DRAWN INCLUDING BLOOD CULTURE AND LACTIC ACID ,AND SEND TO LAB .
[2022-08-20 16:11] LABS: Lipase 28 U/L (8-78)
[2022-08-20 16:11] LABS: Glucose, Whole Blood 282 mg/dL (60-115)
[2022-08-20 16:28] LABS: VBG Base Excess -1.8 mmol/L; VBG HCO3 22 mmol/L (22-26); VBG pCO2 34 mmHg; VBG pH 7.41 (7.32-7.43); VBG pO2 51 mmHg
[2022-08-20 16:28] LABS: Venous Blood Gas Refer to POC result
[2022-08-20] MEDS: 0.9 % Sodium Chloride 1,000 ML 999 ML IVCONT (16:45)
--- NOTE | 2022-08-20 16:48 | PC.NURSE ---
Hyperglycemia today. Takes only Lantus. States unable to get other insulin d/t insurance reasons. States mild dizziness. IV established and fluids started.
[2022-08-20 17:01] LABS: Acetone, serum QL Negative (Negative)
--- NOTE | 2022-08-20 17:02 | MHC.EDTECH ---
pt urine sample collected and sent to lab.
[2022-08-20 17:17] LABS: Appearance Urine Clear; Color Urine Yellow; Glucose Urine UA >=1000 mg/dL (Negative); Leukocyte Esterase Urine Negative (Negative); Nitrite Urine Negative (Negative); PH 6.5 (5.0-9.0); Specific Gravity - Urine >= 1.030 (1.005-1.025); UMIC TRIGGER UACC YES; Urine Blood Negative (Negative); Urine Ketones Negative (Negative); Urine Protein Negative (Neg-Trace)
[2022-08-20 17:31] LABS: Bacteria Urine Trace (None Seen); Hyaline Casts Urine 0-2 /LPF (0-2); RBC Urine 0-2 /HPF (0-2); Squamous Epithelial Cell Urine 0-2 /HPF (0-2); WBC Urine 0-5 /HPF (0-5)
[2022-08-20 17:38] VITALS: BP 105/68; PULSE 102; RESP 16; TEMP 37.1; O2SAT 98
[2022-08-20 18:19] LABS: Glucose, Whole Blood 133 mg/dL (60-115)
== END 2022-08-20 18:45 | disposition home or self-care (01) ==
PROVIDERS: Physician Assistant; Emergency Provider Emergency Medicine; PCP Registered Nurse
DX: E11.65 Type 2 diabetes mellitus with hyperglycemia (principal); I10 Essential (primary) hypertension; F41.9 Anxiety disorder, unspecified; Z63.4 Disappearance and death of family member; Z79.899 Other long term (current) drug therapy
CPT/HCPCS: 36415; 71045; 80048; 80076; 81001; 82009; 82803; 82947; 83605; 83690; 83735; 84484; 85025; 87040; 93005; 99283; 99285

== ENCOUNTER 2022-09-03 08:19 | Outpatient (REF) | payer MEDICARE, MEDICAID, SELFPAY ==
--- NOTE | ~2022-09-03 | XR_ITS ---
EXAMINATION: XR TIBIA AND FIBULA, LEFT CLINICAL INFORMATION: Swelling/mass or lump. COMPARISON: None TECHNIQUE: AP and lateral views of the left tibia and fibula were obtained. FINDINGS: The bones and soft tissues are normal. No acute fracture. No osseous lesions. XR/XR tibia fibula LT 2V IMPRESSION: Normal left tibia and fibula.
== END 2022-09-03 08:20 | disposition home or self-care (01) ==
LOC: HO.XRAY 08:19
PROVIDERS: PCP Registered Nurse; Visit Provider Registered Nurse
DX: R22.42 Localized swelling, mass and lump, left lower limb (principal)
CPT/HCPCS: 73590

== ENCOUNTER → 2022-10-19 09:58 | Outpatient (BNVA) | payer MEDICARE, MEDICAID, SELFPAY | PROVIDERS: PCP Registered Nurse; Visit Provider Surgery | DX: D17.24 Benign lipomatous neoplasm of skin and subcutaneous tissue of left leg (principal) | CPT/HCPCS: 99212 ==

== ENCOUNTER 2022-11-22 10:17 | Outpatient (REF) | payer MEDICARE, MEDICAID, SELFPAY ==
[2022-11-22 10:24] VITALS: BP 113/70; PULSE 111; RESP 16; TEMP 36.1; O2SAT 99
[2022-11-22 10:28] VITALS: BMI 31.3
[2022-11-22 11:06] VITALS: BP 109/69; PULSE 106; RESP 16; O2SAT 96
--- NOTE | 2022-11-22 11:28 | W.PM.OPN ---
Operative Note Operative Note Date of Service: 11/22/22 Narrative: Preoperative diagnosis: Lipoma left [place] Postoperative diagnosis: Same Procedure: Excision of lipoma left [place] Surgeon: Matty Pitts MD Client Technical Specialist: None Anesthesia: Local Indications for procedure: 52-year-old female presenting with a soft tissue mass over the left [place]an[place] which is causing discomfort. On examination there is a 1.5 cm lipoma in the left st[place] with no overlying skin changes. Operative findings: 1.5 cm lipoma left [place] Specimen: Lipoma left [place] Estimated blood loss: Less than 1 mL Complications: None Procedure details: Patient was brought to the minor surgery suite placed in a supine position. The site of lipoma was identified by the patient in the left stan[place]. After assuring informed consent the skin was prepped with Betadine and draped in a sterile fashion. Local anesthesia was then infiltrated in longitudinal fashion directly over the lipoma. Incision was then made with a 15 blade and carried down through subcutaneous tissue up to the lipoma. Blunt dissection was then used to dissect the lipoma from the surrounding subcutaneous tissue. Lesion was then passed off the table and sent to pathology. After assuring adequate hemostasis the dermis was reapproximated using interrupted 4-0 Polysorb sutures. Skin was closed using a running subcuticular 4-0 Polysorb suture. Steri-Strips, 2 x 2 gauze and Tegaderm were then applied. The patient tolerated the procedure well. She was discharged to home in stable condition.
== END 2022-11-22 10:18 | disposition home or self-care (01) ==
LOC: HO.MS 10:17
PROVIDERS: PCP Registered Nurse; Visit Provider Surgery
PROC: (CPT 11402; principal; 2022-11-22 10:50)
DX: D17.24 Benign lipomatous neoplasm of skin and subcutaneous tissue of left leg (principal)
CPT/HCPCS: 11402; 88304

== ENCOUNTER → 2022-11-30 09:38 | Outpatient (BNVA) | payer MEDICARE, MEDICAID, SELFPAY | PROVIDERS: PCP Registered Nurse; Visit Provider Surgery | DX: Z09 Encounter for follow-up examination after completed treatment for conditions other than malignant neoplasm (principal) | CPT/HCPCS: 99212 ==

== ENCOUNTER 2023-03-22 19:44 | Emergency (ER) | payer MEDICARE, MEDICAID, SELFPAY ==
[2023-03-22 20:13] VITALS: BP 109/79; PULSE 114; RESP 18; TEMP 36.4; O2SAT 99; BMI 30.8
[2023-03-22 20:33] LABS: Appearance Urine Clear; Color Urine Yellow; Glucose Urine UA >=1000 mg/dL (Negative); Leukocyte Esterase Urine Negative (Negative); Nitrite Urine Negative (Negative); Specific Gravity - Urine >= 1.030 (1.005-1.025); UMIC TRIGGER UACC YES; Urine Blood Negative (Negative); Urine Ketones Negative (Negative); Urine Protein Negative (Neg-Trace)
[2023-03-22 20:36] LABS: Bacteria Urine None Seen (None Seen); Hyaline Casts Urine 0-2 /LPF (0-2); RBC Urine 0-2 /HPF (0-2); Squamous Epithelial Cell Urine 0-2 /HPF (0-2); WBC Urine 0-5 /HPF (0-5)
--- NOTE | 2023-03-23 00:13 | ED_ITS ---
HPI - Female Genitourinary General Chief complaint: Urogenital-Female Stated complaint: Vaginal itchiness Time Seen by Provider: 03/23/23 00:12 Source: patient, family (daughter), RN notes reviewed and old records reviewed Mode of arrival: wheelchair Limitations: language barrier (Patient declined interpreting services.) History of Present Illness HPI Narrative: 52-year-old female presents for evaluation of burning and itching in her genitals. Patient reports her symptoms started 2 days ago. She has some burning all the time but is much worse after urinating She took 1 dose of Diflucan about 12 hours ago after being prescribed out from urgent care She did not have any pelvic examination performed She called her OBGYN and has an appointment for Saturday Denies any abdominal pain, fevers, chills Related Data Home Medications Medication Instructions Recorded Confirmed amitriptyline 25 mg tablet 25 mg PO BEDTIME 08/01/20 10/19/22 aspirin 81 mg tablet,delayed 81 mg PO DAILY 08/01/20 10/19/22 release (Adult Aspirin Regimen) atorvastatin 10 mg tablet 10 mg PO DAILY 08/01/20 10/19/22 dulaglutide 0.75 mg/0.5 mL 0.75 mg subcut QWEEK 08/01/20 10/19/22 subcutaneous pen injector (Trulicity) metformin 1,000 mg tablet 1,000 mg PO BID 08/08/20 10/19/22 acetaminophen 300 mg-codeine 30 mg 1 tab PO Q12H PRN Pain 09/16/20 10/19/22 tablet albuterol sulfate 90 mcg/actuation 2 puff inhalation Q4-6H PRN 09/16/20 10/19/22 aerosol inhaler Wheezing cholecalciferol (vitamin D3) 25 1 tab PO DAILY 09/16/20 10/19/22 mcg (1,000 unit) tablet insulin glargine 100 unit/mL (3 25 unit subcut BEDTIME 09/16/20 10/19/22 mL) subcutaneous pen (Lantus Solostar U-100 Insulin) lisinopril 5 mg tablet 1 tab PO DAILY 09/16/20 10/19/22 loratadine 10 mg tablet 1 tab PO DAILY 09/16/20 10/19/22 empagliflozin 25 mg tablet mg PO DAILY 10/26/21 10/19/22 (Jardiance) fluticasone propionate 50 intranasal 10/26/21 10/19/22 mcg/actuation nasal spray,suspension gabapentin 100 mg capsule mg PO BEDTIME PRN 10/26/21 10/19/22 levothyroxine 175 mcg tablet mcg PO DAILY 10/26/21 10/19/22 pantoprazole 40 mg tablet,delayed mg PO 10/26/21 10/19/22 release Previous Rx's Medication Instructions Recorded sucralfate 100 mg/mL oral 10 ml PO BID 2 weeks #280 mL 10/26/21 suspension (Carafate) bismuth subsalicylate 262 mg 2 tab PO QID 14 days #112 tabs 11/13/21 chewable tablet (Bismuth) doxycycline monohydrate 100 mg 100 mg PO BID 14 days #28 tabs 11/13/21 tablet metronidazole 250 mg tablet 250 mg PO QID 14 days #56 tabs 11/13/21 omeprazole 20 mg capsule,delayed 20 mg PO BID 14 days #28 caps 11/13/21 release fluconazole 150 mg tablet 150 mg PO DAILY #1 tab 03/23/23 (Diflucan) nitrofurantoin 100 mg PO Q12H 3 days #6 caps 03/23/23 monohydrate/macrocrystals 100 mg capsule (Macrobid) Allergies Allergy/AdvReac Type Severity Reaction Status Date / Time erythromycin base Allergy Severe HIVES Verified 03/22/23 20:12 [Erythromycin Base] Penicillins Allergy Severe HIVES Verified 03/22/23 20:12 adhesive tape [ADHESIVE TAPE] Allergy Unknown RASH Verified 03/22/23 20:12 ciprofloxacin Allergy Unknown Unknown Verified 03/22/23 20:13 furosemide Allergy Unknown rash Verified 03/22/23 20:12 latex [LATEX] Allergy Unknown RASH Verified 03/22/23 20:12 Sulfa (Sulfonamide Allergy Unknown DIZZINESS, Verified 03/22/23 20:12 Antibiotics) VOMITTING, [SULFA(SULFONAMIDE rash ANTIBIOTICS)] tolterodine [Detrol] Allergy Unknown rash Verified 03/22/23 20:12 Review of Systems Constitutional: Constitutional: Denies chills and Denies fever(s) Eyes: Eyes: Denies blurry vision ENT: Denies sore throat Cardiovascular: Cardiovascular: Denies chest pain and Denies dyspnea Respiratory: Respiratory: Denies cough and Denies dyspnea Gastrointestinal: Gastrointestinal: Denies abdominal pain, Denies nausea and Denies vomiting Genitourinary: Genitourinary: Reports genital pruritis, Reports menorrhagia and Reports vaginal pruritus Musculoskeletal: Musculoskeletal: Denies back pain PMFSH Past Medical History Medical History (Updated 03/23/23 @ 00:55 by Bhargav Davis) PONV (postoperative nausea and vomiting) Thyroid disease Diabetes mellitus Arthritis GERD (gastroesophageal reflux disease) Hx of migraines Anxiety and depression CARMEN on CPAP Asthma Elevated cholesterol HTN (hypertension) Carpal tunnel syndrome Surgical History History of appendectomy History of cholecystectomy History of esophagogastroduodenoscopy (EGD) History of excision of epidermal inclusion cyst (07/13/22) History of excision of mass History of incisional hernia repair History of lymph node excision Hx of arthroscopy of left knee Hx of colonoscopy S/P excision of lipoma (11/22/22) Family History Family History Father No problems noted. Mother No problems noted. Social History Social History Household Members: Spouse and Children Household Members Other:: lives with son Are you a primary child care group leader to a significant other at home: No Alcohol intake: never Patient Tobacco Use Status: Never used Tobacco Cigarettes Per Day: 3 Advance Directives: No Advance Directives Information Provided: Yes Current occupational status: unemployed Physical Exam Vital Signs: Vital Signs: Last Vital Signs Temp 97.5 F 03/22/23 20:13 Pulse 114 H 03/22/23 20:13 Resp 18 03/22/23 20:13 BP 109/79 03/22/23 20:13 Pulse Ox 99 03/22/23 20:13 O2 Del Method Room Air 03/22/23 20:13 BMI result Body Mass Index 30.8 Const: General: healthy appearing, comfortable, no acute distress, alert and awake Nutritional Appearance: well nourished Orientation/consciousness: patient oriented x3 HEENT: Head: Yes normocephalic and Yes atraumatic Eyes: Eyelids: Yes eyelids normal Conjunctivae: conjunctivae normal Sclerae: sclerae normal Corneas: corneas normal Pupils: Equal, round and reactive pupils present EOM: EOMs intact bilaterally Neck: Neck: Yes full ROM Resp: Effort & Inspection: normal respiratory effort, able to speak in complete sentences and not labored : Other: Patient was offered speculum exam but declines External Female Exam: normal external appearance, normal appearance of the urethra, No erythema, No externally tender, No external swelling and No lesion Skin: General skin exam: no rashes or lesions noted and elasticity normal Neuro: General: patient oriented x3 Cranial nerves: Yes Equal, round and reactive pupils present and Yes Bilaterally intact EOM present Cognition (Neuro): normal cognition Medical Decision Making Medical Decision Making MDM Narrative: 52-year-old female presents for evaluation of burning with urination and vaginal itching after urination. Her urine does not show any obvious infection. The patient reports that she accidentally sat on the toilet seat that had stool covering the and is concerned that she sat in the stool. She had no rashes or lesions on external vaginal exam but she declines speculum exam is she will follow-up with your clam shovel operator. I agreed to give her a short course of Macrobid to treat UTI symptoms as well as a dose of Diflucan to take in 2 days if her symptoms have not resolved. Differential Diagnosis Differential Diagnoses: The differential diagnosis associated with the presentation includes UTI Cystitis Candidiasis Pelvic pain Lab Data Labs: Lab Results 03/22/23 Range/Units 20:25 Urine Color Yellow Urine Appearance Clear Urine pH 6.0 (5.0-9.0) Ur Specific [place] >= 1.030 H (1.005-1.025) Urine Protein Negative (Neg-Trace) mg/dL Urine Glucose (UA) >=1000 H (Negative) mg/dL Urine Ketones Negative (Negative) mg/dL Urine Blood Negative (Negative) Urine Nitrite Negative (Negative) Ur Leukocyte Esterase Negative (Negative) Urine RBC 0-2 (0-2) /HPF Urine WBC 0-5 (0-5) /HPF Ur Squamous Epith Cells 0-2 (0-2) /HPF Urine Bacteria None Seen (None Seen) Hyaline Casts 0-2 (0-2) /LPF Discharge Plan Discharge Clinical Impression: Urethritis Patient Disposition: Home, Self-Care Instructions: Urinary Tract Infection in Older Adults (ED) Additional Instructions: Take Macrobid twice daily for the next 3 days. Take Diflucan in 2-3 days if her symptoms have not resolved Follow-up with your clam shovel operator as planned Prescriptions: New nitrofurantoin monohyd/m-cryst [Macrobid] 100 mg capsule 100 mg PO Q12H 3 Days Qty: 6 0RF Rx Instructions: must administer with a meal/food fluconazole [Diflucan] 150 mg tablet 150 mg PO DAILY Qty: 1 0RF No Action metronidazole 250 mg tablet 250 mg PO QID 14 Days Qty: 56 0RF bismuth subsalicylate [Bismuth] 262 mg tablet,chewable 2 tab PO QID 14 Days Qty: 112 0RF omeprazole 20 mg capsule,delayed release(DR/EC) 20 mg PO BID 14 Days Qty: 28 0RF doxycycline monohydrate 100 mg tablet 100 mg PO BID 14 Days Qty: 28 0RF acetaminophen-codeine 300-30 mg tablet 1 tab PO Q12H PRN (Reason: Pain) lisinopril 5 mg tablet 1 tab PO DAILY albuterol sulfate 90 mcg/actuation HFA aerosol inhaler 2 puff inhalation Q4-6H PRN (Reason: Wheezing) loratadine 10 mg tablet 1 tab PO DAILY cholecalciferol (vitamin D3) 25 mcg (1,000 unit) tablet 1 tab PO DAILY Lantus Solostar U-100 Insulin 100 unit/mL (3 mL) insulin pen 25 unit subcut BEDTIME aspirin [Adult Aspirin Regimen] 81 mg tablet,delayed release (DR/EC) 81 mg PO DAILY atorvastatin 10 mg tablet 10 mg PO DAILY Trulicity 0.75 mg/0.5 mL pen injector 0.75 mg subcut QWEEK amitriptyline 25 mg tablet 25 mg PO BEDTIME metformin 1,000 mg tablet 1,000 mg PO BID fluticasone propionate 50 mcg/actuation spray,suspension intranasal pantoprazole 40 mg tablet,delayed release (DR/EC) PO Jardiance 25 mg tablet PO DAILY gabapentin 100 mg capsule PO BEDTIME PRN levothyroxine 175 mcg tablet PO DAILY sucralfate [Carafate] 100 mg/mL suspension 10 ml PO BID 14 Days Qty: 280 0RF
[2023-03-23] MEDS: Nitrofurantoin Monohyd/M-Cryst 100 MG CAPSULE PO (01:42)
== END 2023-03-23 01:45 | disposition home or self-care (01) ==
PROVIDERS: Physician Assistant; Emergency Provider Emergency Medicine
DX: N34.2 Other urethritis (principal); R30.0 Dysuria; Z79.899 Other long term (current) drug therapy
CPT/HCPCS: 81001; 99282; 99283

== ENCOUNTER 2023-04-30 09:41 | Outpatient (AMB) | payer MEDICARE, MEDICAID, SELFPAY ==
--- NOTE | 2023-04-30 09:51 | A.OFFVIS_ITS ---
Intake Vital Signs 04/30/23 10:03 Height 5 ft 2 in Weight 165 lb BMI 30.2 BP 107/66 Blood Pressure Location Lt brachial Position Sitting Pulse 122 H Intake Visit Reasons: hemorrhoids Intake Note: Patient c/o: admits to bleeding since she had her colonoscopy on 2021, bleeding in toilet paper, discomfort, denies any other symptoms Euclid Operator Required: Yes Euclid Operator Language: Natural Gas Engineer Name: Concepcion STEVENS Information Interpreted: non-clinical & clinical Mat Cleaning Machine Operator: Mat Cleaning Machine Operator Present Accompanied by: Self / Same As Patient Allergies erythromycin base [Erythromycin Base] Allergy (Severe, Verified 04/30/23 10:03) HIVES Penicillins Allergy (Severe, Verified 04/30/23 10:03) HIVES adhesive tape [ADHESIVE TAPE] Allergy (Unknown, Verified 04/30/23 10:03) RASH ciprofloxacin Allergy (Unknown, Verified 04/30/23 10:03) Unknown furosemide Allergy (Unknown, Verified 04/30/23 10:03) rash latex [LATEX] Allergy (Unknown, Verified 04/30/23 10:03) RASH Sulfa (Sulfonamide Antibiotics) [SULFA(SULFONAMIDE ANTIBIOTICS)] Allergy (Unknown, Verified 04/30/23 10:03) DIZZINESS, VOMITTING, rash tolterodine [Detrol] Allergy (Unknown, Verified 04/30/23 10:03) rash Medication List - Last Reconciled 04/30/23 by Matty Pitts MD acetaminophen-codeine 300-30 mg 1 tab PO Q12H PRN albuterol sulfate 90 mcg/actuation 2 puffs inhalation Q4-6H PRN amitriptyline 25 mg PO BEDTIME aspirin (Adult Aspirin Regimen) 81 mg PO DAILY atorvastatin 10 mg PO DAILY bismuth subsalicylate (Bismuth) 2 tabs PO QID 14 days cholecalciferol (vitamin D3) 1 tab PO DAILY doxycycline monohydrate 100 mg PO BID 14 days dulaglutide (Trulicity) 0.75 mg subcut QWEEK empagliflozin (Jardiance) mg PO DAILY fluconazole (Diflucan) 150 mg PO DAILY fluticasone propionate 50 mcg/actuation intranasal gabapentin mg PO BEDTIME PRN hydrocortisone-pramoxine 2.5-1 % 1 appl [place] BID PRN insulin glargine (Lantus Solostar U-100 Insulin) 25 units subcut BEDTIME levothyroxine mcg PO DAILY lisinopril 1 tab PO DAILY loratadine 1 tab PO DAILY metformin 1,000 mg PO BID metronidazole 250 mg PO QID 14 days nitrofurantoin monohyd/m-cryst 100 mg (Macrobid) 100 mg PO Q12H 3 days omeprazole 20 mg PO BID 14 days pantoprazole mg PO sucralfate (Carafate) 10 mL PO BID 2 weeks HPI HPI Comments History of Present Illness Details Bette returns with complaints of hemorrhoidal bleeding which began after her colonoscopy in 2021. Hemorrhoids were identified under colonoscopy that time. She denies a previous history of hemorrhoidal surgery. Bleeding is noted almost daily with bowel movements and occasionally noted on her underwear. She occasionally has some discomfort but denies sharp pain. She is currently using fiber therapy but denies using any [id number] hemorrhoidal creams. [facility] Medical History PONV (postoperative nausea and vomiting) Thyroid disease Diabetes mellitus Arthritis GERD (gastroesophageal reflux disease) Hx of migraines Anxiety and depression CARMEN on CPAP Asthma Elevated cholesterol HTN (hypertension) Carpal tunnel syndrome Surgical History S/P excision of lipoma (11/22/22) History of excision of epidermal inclusion cyst (07/13/22) History of excision of mass History of cholecystectomy History of esophagogastroduodenoscopy (EGD) Hx of colonoscopy History of lymph node excision Hx of arthroscopy of left knee History of incisional hernia repair History of appendectomy Family History Father No problems noted. Mother No problems noted. Social History Household Members: Spouse and Children Household Members Other:: lives with son Are you a primary personal care home administrator to a significant other at home: No Alcohol intake: never Patient Tobacco Use Status: Never used Tobacco Cigarettes Per Day: 3 Current occupational status: unemployed Review of Systems Const All systems reviewed & are unremarkable except as noted in HPI and below GI Reports as per HPI, Denies constipation, Denies loose stools, Denies nausea and Denies vomiting Physical Exam Vital Signs: Last Vital Signs Pulse 122 H 10/31/23 10:03 BP 107/66 04/30/23 10:03 BMI result Body Mass Index 30.2 Const General: no acute distress Nutritional Appearance: well nourished Orientation/consciousness: patient oriented x3 Limitations: no limitations Resp Effort & Inspection: normal respiratory effort, no audible wheezes, no cough and no respiratory distress GI Other: Rectal examination: External examination with no tenderness, abscess, fissure, or fistula. Digital rectal examination: No tenderness to palpation of anal canal, no palpable mass Anoscopic examination: Mild grade 1 hemorrhoids without active bleeding located in the posterior left lateral and anterior anal canal. No evidence of thrombosis. Inspection: Yes normal to inspection Palpation (GI): Soft to palpation, nontender and no guarding Skin General skin exam: no rashes or lesions noted Neuro General: patient oriented x3 Extrem General: Yes no clubbing, cyanosis or edema Assessment & Plan Assessment & Plan (1) Internal hemorrhoid, bleeding: Code(s): K64.8 - Other hemorrhoids Plan 52-year-old female patient presenting with complaints of rectal bleeding found to have hemorrhoids on colonoscopy. Examination today does reveal internal hemorrhoids which are mildly inflamed but not prolapsing. Recommended a trial of hydrocortisone cream for the next 2 weeks. She will return in 2 weeks for follow-up examination. She should continue fiber therapy as well. Medications: New hydrocortisone-pramoxine 2.5-1 % 1 appl [place] BID PRN 30 grams 1RF itching Coding Level of Care Code Est Pt Level 3 (78476) Diagnoses Internal hemorrhoid, bleeding K64.8
[2023-04-30 10:03] VITALS: BP 107/66; PULSE 122; BMI 30.2
== END 2023-04-30 10:17 | disposition home or self-care (01) ==
PROVIDERS: PCP Registered Nurse; Visit Provider Surgery
DX: K64.8 Other hemorrhoids (principal)
CPT/HCPCS: 46600; 99213

== ENCOUNTER → 2023-04-30 09:41 | Outpatient (BNVA) | payer MEDICARE, MEDICAID, SELFPAY | PROVIDERS: PCP Registered Nurse; Visit Provider Surgery | DX: K64.8 Other hemorrhoids (principal) | CPT/HCPCS: 46600; 99212 ==

== ENCOUNTER 2023-06-06 13:11 | Outpatient (AMB) | payer MEDICARE, MEDICAID, SELFPAY ==
--- NOTE | 2023-06-06 13:14 | A.OFFVIS_ITS ---
Intake Vital Signs 06/06/23 13:26 Height 5 ft 2 in Weight 169 lb BMI 30.9 BP 129/71 Blood Pressure Location Lt brachial Position Sitting Pulse 116 H Intake Visit Reasons: one month follow up visit, hemorrhoids Intake Note: Patient is seen in office for one month follow up visit, following hemorrhoids. Pt c/o: continued bleeding and pain, feels is prolapse Food Or Baggage Handling [place] Required: Yes Food Or Baggage Handling [place] Language: Field Technician Name: Concepcion STEVENS Information Interpreted: non-clinical & clinical Global Program Director: Global Program Director Present Accompanied by: Self / Same As Patient Allergies erythromycin base [Erythromycin Base] Allergy (Severe, Verified 06/06/23 13:26) HIVES Penicillins Allergy (Severe, Verified 06/06/23 13:26) HIVES adhesive tape [ADHESIVE TAPE] Allergy (Unknown, Verified 06/06/23 13:26) RASH ciprofloxacin Allergy (Unknown, Verified 06/06/23 13:26) Unknown furosemide Allergy (Unknown, Verified 06/06/23 13:26) rash latex [LATEX] Allergy (Unknown, Verified 06/06/23 13:26) RASH Sulfa (Sulfonamide Antibiotics) [SULFA(SULFONAMIDE ANTIBIOTICS)] Allergy (Unknown, Verified 06/06/23 13:26) DIZZINESS, VOMITTING, rash tolterodine [Detrol] Allergy (Unknown, Verified 06/06/23 13:26) rash Medication List - Last Reconciled 06/06/23 by Matty Pitts MD acetaminophen-codeine 300-30 mg 1 tab PO Q12H PRN albuterol sulfate 90 mcg/actuation 2 puffs inhalation Q4-6H PRN amitriptyline 25 mg PO BEDTIME aspirin (Adult Aspirin Regimen) 81 mg PO DAILY atorvastatin 10 mg PO DAILY bismuth subsalicylate (Bismuth) 2 tabs PO QID 14 days cholecalciferol (vitamin D3) 1 tab PO DAILY doxycycline monohydrate 100 mg PO BID 14 days dulaglutide (Trulicity) 0.75 mg subcut QWEEK empagliflozin (Jardiance) mg PO DAILY fluconazole (Diflucan) 150 mg PO DAILY fluticasone propionate 50 mcg/actuation intranasal gabapentin mg PO BEDTIME PRN hydrocortisone 2.5% 1 appl MA BID PRN hydrocortisone-pramoxine 2.5-1 % 1 appl MA BID PRN insulin glargine (Lantus Solostar U-100 Insulin) 25 units subcut BEDTIME levothyroxine mcg PO DAILY lisinopril 1 tab PO DAILY loratadine 1 tab PO DAILY metformin 1,000 mg PO BID metronidazole 250 mg PO QID 14 days nitrofurantoin monohyd/m-cryst 100 mg (Macrobid) 100 mg PO Q12H 3 days omeprazole 20 mg PO BID 14 days pantoprazole mg PO sucralfate (Carafate) 10 mL PO BID 2 weeks HPI HPI Comments History of Present Illness Details 52-year-old female patient returning for re-evaluation of hemorrhoidal bleeding. She was evaluated last month and started on hydrocortisone cream which he continues to use. Since her last visit she feels the hemorrhoids have actually increased in size and continue to bleed on a daily basis . Reports feeling the hemorrhoids prolapsing especially when having a bowel movement. Her bowels have been regular without constipation or diarrhea. She denies fever or chills. She does have pain when having a bowel movement as well. She does not feel the hemorrhoidal cream has improved her symptoms. [facility]LY [facility] Medical History PONV (postoperative nausea and vomiting) Thyroid disease Diabetes mellitus Arthritis GERD (gastroesophageal reflux disease) Hx of migraines Anxiety and depression CARMEN on CPAP Asthma Elevated cholesterol HTN (hypertension) Carpal tunnel syndrome Surgical History S/P excision of lipoma (11/22/22) History of excision of epidermal inclusion cyst (07/13/22) History of excision of mass History of cholecystectomy History of esophagogastroduodenoscopy (EGD) Hx of colonoscopy History of lymph node excision Hx of arthroscopy of left knee History of incisional hernia repair History of appendectomy Family History Father No problems noted. Mother No problems noted. Social History Household Members: Spouse and Children Household Members Other:: lives with son Are you a primary gericare aide teacher to a significant other at home: No Alcohol intake: never Patient Tobacco Use Status: Never used Tobacco Cigarettes Per Day: 3 Current occupational status: unemployed Review of Systems Const All systems reviewed & are unremarkable except as noted in HPI and below GI Reports as per HPI, Denies constipation, Denies loose stools, Denies nausea and Denies vomiting Physical Exam Vital Signs: Last Vital Signs Pulse 116 H 06/06/23 13:26 BP 129/71 06/06/23 13:26 BMI result Body Mass Index 30.9 Const General: no acute distress Nutritional Appearance: well nourished Orientation/consciousness: patient oriented x3 Limitations: no limitations Resp Effort & Inspection: normal respiratory effort, no audible wheezes, no cough and no respiratory distress GI Other: Rectal examination: Obvious internal hemorrhoids prolapsing through anal canal, reducible with light pressure. Digital rectal examination: Tender with bleeding internal hemorrhoids. Anoscopic examination: Grade 3 internal hemorrhoids with bleeding Inspection: Yes normal to inspection Palpation (GI): Soft to palpation, nontender and no guarding Skin General skin exam: no rashes or lesions noted Neuro General: patient oriented x3 Extrem General: Yes no clubbing, cyanosis or edema Assessment & Plan Assessment & Plan (1) Internal hemorrhoid, bleeding: Code(s): K64.8 - Other hemorrhoids Plan 52-year-old female patient presenting with prolapsing and bleeding internal hemorrhoids which is not improved with hydrocortisone cream. In fact, the hemorrhoids are now increased in size with persistent bleeding. Options include continued non operative management with hydrocortisone cream verses exam under anesthesia with hemorrhoidectomy. After a discussion of the procedure, risks, and alternatives, she consents to an exam under anesthesia and hemorrhoidectomy. She will be scheduled as a short-stay surgery at her earliest convenience. Coding Level of Care Code Est Pt Level 4 (34996) Diagnoses Internal hemorrhoid, bleeding K64.8
[2023-06-06 13:26] VITALS: BP 129/71; PULSE 116; BMI 30.9
== END 2023-06-06 13:38 | disposition home or self-care (01) ==
PROVIDERS: PCP Registered Nurse; Visit Provider Surgery
DX: K64.8 Other hemorrhoids (principal)
CPT/HCPCS: 99214

== ENCOUNTER → 2023-06-06 13:11 | Outpatient (BNVA) | payer MEDICARE, MEDICAID, SELFPAY | PROVIDERS: PCP Registered Nurse; Visit Provider Surgery | DX: K64.8 Other hemorrhoids (principal) | CPT/HCPCS: 99212 ==

== ENCOUNTER 2023-06-10 13:21 | Outpatient (REF) | payer MEDICARE, MEDICAID, SELFPAY ==
[2023-06-14 09:01] LABS: Alphahydroxymidazolam,GCMS Ur NEGATIVE; Alphahydroxytriazolam, GCMS Ur NEGATIVE; Alprazolam, GCMS Urine NEGATIVE; Aminoclonazepam, GCMS Urine NEGATIVE; Flurazepam Metabolite,GCMS Ur NEGATIVE; Lorazepam GCMS Urine NEGATIVE; Nordiazepam, GCMS Urine NEGATIVE; Oxazepam, GCMS Urine NEGATIVE; Temazepam, GCMS Urine NEGATIVE
== END 2023-06-10 13:22 | disposition home or self-care (01) ==
LOC: HO.HHCLNP 13:21
PROVIDERS: Visit Provider Registered Nurse
DX: M25.50 Pain in unspecified joint (principal)
CPT/HCPCS: 80346

== ENCOUNTER 2023-06-12 07:52 | Day surgery (SDC) | payer MEDICARE, MEDICAID, SELFPAY ==
--- NOTE | 2023-06-11 10:48 | HO.ANESPROP2 ---
Documented by User: Krysten Lott NP 06/11/23 10:57 HPI - Anesthesia Eval Consult details Narrative: 52yo F for Hemorrhoidectomy PONV Previously on trulicity but hasn't taken for years [facility] Active Problems Active Problems: All Active Problems (Updated 04/30/23 @ 10:20 by Matty Pitts MD) Internal hemorrhoid, bleeding (Acute) Lipoma of left lower extremity (Acute) Epidermal inclusion cyst (Acute) GERD (gastroesophageal reflux disease) (Acute) H. pylori infection (Acute) Hemorrhoids affecting or puerperium with complication (Acute) Diverticulosis large intestine w/o perforation or abscess w/o bleeding (Acute) Hyperplastic polyp of ascending colon (Acute) Encounter for screening colonoscopy (Acute) Diabetes (Acute) Thyroid condition (Acute) Dyslipidemia (Acute) Past Medical History Medical History PONV (postoperative nausea and vomiting) Thyroid disease Diabetes mellitus Arthritis GERD (gastroesophageal reflux disease) Hx of migraines Anxiety and depression CARMEN on CPAP Asthma Elevated cholesterol HTN (hypertension) Carpal tunnel syndrome Family History Family History Father No problems noted. Mother No problems noted. Surgical History Surgical History S/P excision of lipoma (11/22/22) History of excision of epidermal inclusion cyst (07/13/22) History of excision of mass History of cholecystectomy History of esophagogastroduodenoscopy (EGD) Hx of colonoscopy History of lymph node excision Hx of arthroscopy of left knee History of incisional hernia repair History of appendectomy Social History Social History Household Members: Spouse and Children Household Members Other:: lives with son Are you a primary customer care agent to a significant other at home: No Alcohol intake: never Patient Tobacco Use Status: Current everyday Tobacco user Cigarettes Per Day: 3 Years Smoked: 33 Smoked in Last 30 Days: Yes Use of substances other than those prescribed or required for medical reasons: No Are you DNR?: No Advance Directives: No Advance Directives Information Provided: Yes Current occupational status: unemployed Meds Allergies Allergy/AdvReac Type Severity Reaction Status Date / Time erythromycin base Allergy Severe HIVES Verified 06/06/23 13:26 [Erythromycin Base] Penicillins Allergy Severe HIVES Verified 06/06/23 13:26 adhesive tape [ADHESIVE TAPE] Allergy Unknown RASH Verified 06/06/23 13:26 ciprofloxacin Allergy Unknown Unknown Verified 06/06/23 13:26 furosemide Allergy Unknown rash Verified 06/06/23 13:26 latex [LATEX] Allergy Unknown RASH Verified 06/06/23 13:26 Sulfa (Sulfonamide Allergy Unknown DIZZINESS, Verified 06/06/23 13:26 Antibiotics) VOMITTING, [SULFA(SULFONAMIDE rash ANTIBIOTICS)] tolterodine [Detrol] Allergy Unknown rash Verified 06/06/23 13:26 Home Medications Medication Instructions Recorded Confirmed Last Taken Type amitriptyline 25 mg tablet 25 mg PO BEDTIME 08/01/20 06/06/23 Unknown History aspirin 81 mg tablet,delayed 81 mg PO DAILY 08/01/20 06/06/23 Unknown History release (Adult Aspirin Regimen) atorvastatin 10 mg tablet 10 mg PO DAILY 08/01/20 06/06/23 Unknown History metformin 1,000 mg tablet 1,000 mg PO BID 08/08/20 06/06/23 Unknown History acetaminophen 300 mg-codeine 30 mg 1 tab PO Q12H PRN Pain 09/16/20 06/06/23 Unknown History tablet albuterol sulfate 90 mcg/actuation 2 puff inhalation Q4-6H PRN 09/16/20 06/06/23 Unknown History aerosol inhaler Wheezing cholecalciferol (vitamin D3) 25 1 tab PO DAILY 09/16/20 06/06/23 Unknown History mcg (1,000 unit) tablet lisinopril 5 mg tablet 1 tab PO DAILY 09/16/20 06/06/23 Unknown History loratadine 10 mg tablet 1 tab PO DAILY 09/16/20 06/06/23 Unknown History empagliflozin 25 mg tablet mg PO DAILY 10/26/21 06/06/23 Unknown History (Jardiance) fluticasone propionate 50 intranasal 10/26/21 06/06/23 Unknown History mcg/actuation nasal spray,suspension gabapentin 100 mg capsule mg PO BEDTIME PRN 10/26/21 06/06/23 Unknown History levothyroxine 175 mcg tablet mcg PO DAILY 10/26/21 06/06/23 Unknown History pantoprazole 40 mg tablet,delayed mg PO 10/26/21 06/06/23 Unknown History release Exam Pertinent Lab Results Pertinent Lab Results: Laboratory Tests 08/20/22 14:46 WBC 14.6 H Hgb 14.4 Hct 44.3 D Plt Count 418 H Sodium 134 L Potassium 4.0 Chloride 100 Carbon Dioxide 20 L BUN 12 Creatinine 0.93 Narrative Narrative: EKG 08/2022 Vent. Rate : 125 BPM Atrial Rate : 125 BPM P-R Int : 144 ms QRS Dur : 068 ms QT Int : 322 ms P-R-T Axes : 064 025 050 degrees QTc Int : 464 ms Sinus tachycardia Otherwise normal ECG When compared with ECG of 06-MAY-2021 08:03, No significant change was found Assessment and Plan Assessment Anesthesia Assessment: Chart Reviewed Documented by User: Alexandra Worley MD 06/12/23 10:15 [facility] Past Medical History Medical History PONV (postoperative nausea and vomiting) Thyroid disease Diabetes mellitus Arthritis GERD (gastroesophageal reflux disease) Hx of migraines Anxiety and depression CARMEN on CPAP Asthma Elevated cholesterol HTN (hypertension) Carpal tunnel syndrome Family History Family History Father No problems noted. Mother No problems noted. Family history of problems with anesthesia: No Surgical History Surgical History S/P excision of lipoma (11/22/22) History of excision of epidermal inclusion cyst (07/13/22) History of excision of mass History of cholecystectomy History of esophagogastroduodenoscopy (EGD) Hx of colonoscopy History of lymph node excision Hx of arthroscopy of left knee History of incisional hernia repair History of appendectomy History of Problems with Anesthesia: No Social History Social History Household Members: Spouse and Children Household Members Other:: lives with son Are you a primary customer care agent to a significant other at home: No Alcohol intake: never Patient Tobacco Use Status: Current everyday Tobacco user Cigarettes Per Day: 3 Years Smoked: 33 Smoked in Last 30 Days: Yes Use of substances other than those prescribed or required for medical reasons: No Are you DNR?: No Advance Directives: No Advance Directives Information Provided: Yes Current occupational status: unemployed Meds Allergies Allergy/AdvReac Type Severity Reaction Status Date / Time erythromycin base Allergy Severe HIVES Verified 06/06/23 13:26 [Erythromycin Base] Penicillins Allergy Severe HIVES Verified 06/06/23 13:26 adhesive tape [ADHESIVE TAPE] Allergy Unknown RASH Verified 06/06/23 13:26 ciprofloxacin Allergy Unknown Unknown Verified 06/06/23 13:26 furosemide Allergy Unknown rash Verified 06/06/23 13:26 latex [LATEX] Allergy Unknown RASH Verified 06/06/23 13:26 Sulfa (Sulfonamide Allergy Unknown DIZZINESS, Verified 06/06/23 13:26 Antibiotics) VOMITTING, [SULFA(SULFONAMIDE rash ANTIBIOTICS)] tolterodine [Detrol] Allergy Unknown rash Verified 06/06/23 13:26 Home Medications Medication Instructions Recorded Confirmed Last Taken Type amitriptyline 25 mg tablet 25 mg PO BEDTIME 08/01/20 06/06/23 Unknown History aspirin 81 mg tablet,delayed 81 mg PO DAILY 08/01/20 06/06/23 Unknown History release (Adult Aspirin Regimen) atorvastatin 10 mg tablet 10 mg PO DAILY 08/01/20 06/06/23 Unknown History metformin 1,000 mg tablet 1,000 mg PO BID 08/08/20 06/06/23 Unknown History acetaminophen 300 mg-codeine 30 mg 1 tab PO Q12H PRN Pain 09/16/20 06/06/23 Unknown History tablet albuterol sulfate 90 mcg/actuation 2 puff inhalation Q4-6H PRN 09/16/20 06/06/23 Unknown History aerosol inhaler Wheezing cholecalciferol (vitamin D3) 25 1 tab PO DAILY 09/16/20 06/06/23 Unknown History mcg (1,000 unit) tablet lisinopril 5 mg tablet 1 tab PO DAILY 09/16/20 06/06/23 Unknown History loratadine 10 mg tablet 1 tab PO DAILY 09/16/20 06/06/23 Unknown History empagliflozin 25 mg tablet mg PO DAILY 10/26/21 06/06/23 Unknown History (Jardiance) fluticasone propionate 50 intranasal 10/26/21 06/06/23 Unknown History mcg/actuation nasal spray,suspension gabapentin 100 mg capsule mg PO BEDTIME PRN 10/26/21 06/06/23 Unknown History levothyroxine 175 mcg tablet mcg PO DAILY 10/26/21 06/06/23 Unknown History pantoprazole 40 mg tablet,delayed mg PO 10/26/21 06/06/23 Unknown History release Exam Airway Mallampati Class: II TM Dist: >3cm Neck ROM: Full Heart: rrr Lungs: cta Assessment and Plan Assessment Anesthesia Assessment: Anesthesia Plan Discussed Final Anesthetic Review Family History of Problems with Anesthesia: No History of Problems with Anesthesia: No NPO: Yes ASA Class: III Final Preanesthetic Review: No Changes in Pt Med Stat, Meds/Allgs Chart Reviewed and Consent Obtained/Reviewed Patient Risk: Intermediate Procedure Risk: Intermediate Anesthetic Plan Anesthetic Plan: GA Disposition: Standard PACU
[2023-06-12] VITALS (9 sets, daily range): BP systolic 121–152; BP diastolic 78–100; PULSE 99–110; RESP 14–17; TEMP 36.4–36.6; O2SAT 95–99; BMI 30.4
[2023-06-12] MEDS: Scopolamine 1.5 MG PATCH.TD.3 TRANSDERMA (09:55)
[2023-06-12] MEDS: Lactated Ringers 1,000 ML 100 ML IVCONT (10:10)
--- NOTE | 2023-06-12 11:20 | W.PM.OPN ---
Operative Note Operative Note Date of Service: 06/12/23 Narrative: Preoperative diagnosis: Bleeding hemorrhoids Postoperative diagnosis: same Procedure: exam under anesthesia, hemorrhoidectomy Surgeon: Matty Pitts MD Mate Relief: Cailin Javier PA-C Anesthesia: general LMA Indications for procedure: 52-year-old female patient presenting with complaints of bleeding hemorrhoids. On examination she was found to have prolapsing internal hemorrhoids with obvious bleeding. Operative findings: Exam under anesthesia reveals 2 major prolapsing hemorrhoids both with ulceration suggestive of prior bleeding. Sphincter tone is normal. No infection identified. Some minor prolapsing of rectum noted. No fissures or fistula. Specimen: Hemorrhoidectomy x2 Estimated blood loss: 10 mL Complications: none Procedure details: patient was brought to the OR placed in a supine position. After administering general anesthesia she was placed in a prone position. The patient's perianal skin was prepped with Betadine and draped in a sterile fashion. A surgical time-out was called the consent confirmed. Patient received preoperative antibiotics and Venodyne boots were in place. Local anesthesia was infiltrated circumferentially along anal mucosa. A large bullet was then inserted and the above findings noted. Beginning on the left lateral anal wall, a large ulcerated prolapsing hemorrhoidal bundle was grasped with a Stevens clamp. A Reba clamp was then placed below this. A 3-0 chromic suture was then placed at the base of the Reba. This was then tied off. The hemorrhoid was then excised using Metzenbaum scissors . The suture was then run below the Reba clamp and a baseball-type stitch. The clamp was removed and a running suture brought back to the initial knot and the suture tied. Good hemostasis was achieved with the suture. Attention was then directed to the right lateral anal wall. Again a pending to clamp was used to grasp a prolapsing hemorrhoid. A Reba clamp was placed below the clamp to grasp the large prolapsing hemorrhoid. This was then excised with Metzenbaum scissors. A running 3-0 chromic suture was then used to close the tissue As above. Once again good hemostasis was achieved with suture. The and rectum was again re-examined using the anoscope and no further prolapsing bleeding hemorrhoids identified. A dressing consisting of Xeroform wrapped around a 4 x 4 gauze was then inserted for hemostasis. This included a small piece of Surgicel. This was then covered with an ABD pad. The patient was brought back to the supine position awakened from anesthesia. She tolerated the procedure well. Sponge, instrument, needle counts reported as correct. The patient was transferred to PACU in stable condition.
[2023-06-12] MEDS: Albuterol Sulfate (0.083%) 2.5 MG/3 ML VIAL.NEB INHALE (11:39)
[2023-06-12] MEDS: Acetaminophen 1,000 MG/100 ML PIGGYBACK 400 MG IV (11:58)
[2023-06-12] MEDS: oxyCODONE HCl Immed Release 5 MG TABLET PO (12:15)
== END 2023-06-12 14:06 | disposition home or self-care (01) ==
PROVIDERS: Visit Provider Surgery
PROC: (CPT 46260; principal; 2023-06-12 10:20)
DX: K64.8 Other hemorrhoids (principal); K62.3 Rectal prolapse; K21.9 Gastro-esophageal reflux disease without esophagitis; I10 Essential (primary) hypertension; E78.00 Pure hypercholesterolemia, unspecified; E11.9 Type 2 diabetes mellitus without complications; J45.909 Unspecified asthma, uncomplicated; F41.8 Other specified anxiety disorders; G47.33 Obstructive sleep apnea (adult) (pediatric); Z79.82 Long term (current) use of aspirin; Z79.51 Long term (current) use of inhaled steroids; Z79.4 Long term (current) use of insulin; Z79.84 Long term (current) use of oral hypoglycemic drugs; Z79.85 Long-term (current) use of injectable non-insulin antidiabetic drugs; Z79.899 Other long term (current) drug therapy; Z88.0 Allergy status to penicillin; Z88.1 Allergy status to other antibiotic agents; Z88.2 Allergy status to sulfonamides; Z91.040 Latex allergy status; Z98.890 Other specified postprocedural states
CPT/HCPCS: 46260; 88304; 94640; J0131; J0330; J0665; J1100; J2250; J2405; J2704; J3010

== ENCOUNTER → 2023-06-12 07:52 | Outpatient (BNV) | payer MEDICARE, MEDICAID, SELFPAY | PROVIDERS: Visit Provider Surgery | DX: K64.8 Other hemorrhoids (principal) | CPT/HCPCS: 46250 ==

== ENCOUNTER 2023-06-27 15:00 | Outpatient (AMB) | payer MEDICARE, MEDICAID, SELFPAY ==
[2023-06-27 15:04] VITALS: BP 125/72; PULSE 118
--- NOTE | 2023-06-27 15:04 | A.OFFVIS_ITS ---
Intake Vital Signs 06/27/23 15:04 Weight 168 lb BP 125/72 Blood Pressure Location Rt brachial Position Sitting Pulse 118 H Intake Visit Reasons: S/p hemorrhoidectomy Intake Note: Patient is seen in office for post op assessment post hemorrhoidectomy on 06/17/23. Pt c/o:Mild bleeding with BM. No longer taking rx pain meds. Director Public Required: No Accompanied by: Self / Same As Patient Allergies erythromycin base [Erythromycin Base] Allergy (Severe, Verified 06/27/23 15:05) HIVES Penicillins Allergy (Severe, Verified 06/27/23 15:05) HIVES adhesive tape [ADHESIVE TAPE] Allergy (Unknown, Verified 06/27/23 15:05) RASH ciprofloxacin Allergy (Unknown, Verified 06/27/23 15:05) Unknown furosemide Allergy (Unknown, Verified 06/27/23 15:05) rash latex [LATEX] Allergy (Unknown, Verified 06/27/23 15:05) RASH Sulfa (Sulfonamide Antibiotics) [SULFA(SULFONAMIDE ANTIBIOTICS)] Allergy (Unknown, Verified 06/27/23 15:05) DIZZINESS, VOMITTING, rash tolterodine [Detrol] Allergy (Unknown, Verified 06/27/23 15:05) rash Medication List - Last Reconciled 06/27/23 by Matty Pitts MD acetaminophen-codeine 300-30 mg 1 tab PO Q12H PRN albuterol sulfate 90 mcg/actuation 2 puffs inhalation Q4-6H PRN amitriptyline 25 mg PO BEDTIME aspirin (Adult Aspirin Regimen) 81 mg PO DAILY atorvastatin 10 mg PO DAILY bismuth subsalicylate (Bismuth) 2 tabs PO QID 14 days cholecalciferol (vitamin D3) 1 tab PO DAILY empagliflozin (Jardiance) mg PO DAILY fluconazole (Diflucan) 150 mg PO DAILY fluticasone propionate 50 mcg/actuation intranasal gabapentin mg PO BEDTIME PRN hydrocortisone 2.5% 1 appl [place] BID PRN hydrocortisone-pramoxine 2.5-1 % 1 appl VA BID PRN levothyroxine mcg PO DAILY lisinopril 1 tab PO DAILY loratadine 1 tab PO DAILY metformin 1,000 mg PO BID metronidazole 250 mg PO QID 14 days nitrofurantoin monohyd/m-cryst 100 mg (Macrobid) 100 mg PO Q12H 3 days omeprazole 20 mg PO BID 14 days pantoprazole mg PO sucralfate (Carafate) 10 mL PO BID 2 weeks HPI HPI Comments History of Present Illness Details 52-year-old female patient status post h emorrhoidectomy for bleeding hemorrhoids returning 1 week postop. Overall her bleeding is much improved although she still has some discharge after bowel movement. She is no longer requiring pain medication. Her bowels are moving normally. She denies any fever or chills. PFSH Medical History PONV (postoperative nausea and vomiting) Thyroid disease Diabetes mellitus Arthritis GERD (gastroesophageal reflux disease) Hx of migraines Anxiety and depression CARMEN on CPAP Asthma Elevated cholesterol HTN (hypertension) Carpal tunnel syndrome Surgical History History of hemorrhoidectomy (06/17/23) S/P excision of lipoma (11/22/22) History of excision of epidermal inclusion cyst (07/13/22) History of excision of mass History of cholecystectomy History of esophagogastroduodenoscopy (EGD) Hx of colonoscopy History of lymph node excision Hx of arthroscopy of left knee History of incisional hernia repair History of appendectomy Family History Father No problems noted. Mother No problems noted. Social History Household Members: Spouse and Children Household Members Other:: lives with son Are you a primary child care worker to a significant other at home: No Alcohol intake: never Patient Tobacco Use Status: Current everyday Tobacco user Cigarettes Per Day: 3 Years Smoked: 33 Current occupational status: unemployed Physical Exam Vital Signs: Last Vital Signs Pulse 118 H 06/27/23 15:04 BP 125/72 06/27/23 15:04 Const General: no acute distress Nutritional Appearance: well nourished Orientation/consciousness: patient oriented x3 Limitations: no limitations Resp Effort & Inspection: normal respiratory effort GI Other: Anal examination reveals minimal inflammation in the right lateral wall with an intact incision. No erythema or fluctuance is identified. The left lateral incision is clean, dry and intact. Minimal inflammation is noted at this location. Overall the wounds are healing appropriately. Neuro General: patient oriented x3 Assessment & Plan Assessment & Plan (1) Internal hemorrhoid, bleeding: Code(s): K64.8 - Other hemorrhoids Plan Overall the patient is much improved with decreased bleeding from her internal hemorrhoids. The wounds are clean with the expected residual inflammation following the surgery. There is no evidence of wound infection. She should continue to do warm soaks daily especially after bowel movement. She should follow up in 1 month for postoperative visit. She is welcome to call sooner for any new concerns. Coding Level of Care Code Global (18277) Diagnoses Internal hemorrhoid, bleeding K64.8
== END 2023-06-27 15:12 | disposition home or self-care (01) ==
PROVIDERS: PCP Registered Nurse; Visit Provider Surgery
DX: K64.8 Other hemorrhoids (principal)
CPT/HCPCS: 99024

== ENCOUNTER → 2023-06-27 15:00 | Outpatient (BNVA) | payer MEDICARE, MEDICAID, SELFPAY | PROVIDERS: PCP Registered Nurse; Visit Provider Surgery | DX: Z48.815 Encounter for surgical aftercare following surgery on the digestive system (principal); Z98.890 Other specified postprocedural states | CPT/HCPCS: 99212 ==

== ENCOUNTER 2023-07-03 10:47 | Outpatient (REF) | payer MEDICARE, MEDICAID, SELFPAY | END 2023-07-03 10:48 | disposition home or self-care (01) | LOC: HO.HHCL 10:47 | PROVIDERS: Visit Provider Registered Nurse | DX: E11.65 Type 2 diabetes mellitus with hyperglycemia (principal); Z79.4 Long term (current) use of insulin | CPT/HCPCS: 36415; 80048; 80061; 82043; 82570; 82607; 82746 ==

== ENCOUNTER 2023-07-26 09:27 | Outpatient (AMB) | payer MEDICARE, MEDICAID, SELFPAY ==
--- NOTE | 2023-07-26 10:20 | A.OFFVIS_ITS ---
Intake Vital Signs 07/26/23 10:25 Height 5 ft 2 in Weight 168 lb BMI 30.7 BP 119/64 Blood Pressure Location Lt brachial Position Sitting Pulse 109 H Intake Visit Reasons: 1m S/p hemorrhoidectomy Intake Note: Patient is seen in office for one month follow up visit, post hemorrhoidectomy. Pt c/o: denies any concerns or changes, no bleeding or constipation Corporate Administrative Assistant Required: Yes Corporate Administrative Assistant Language: [employer] [place] Name: Concepcion STEVENS Information Interpreted: non-clinical & clinical Arts Administrator: Arts Administrator Present Accompanied by: Self / Same As Patient Allergies erythromycin base [Erythromycin Base] Allergy (Severe, Verified 07/26/23 10:25) HIVES Penicillins Allergy (Severe, Verified 07/26/23 10:25) HIVES adhesive tape [ADHESIVE TAPE] Allergy (Unknown, Verified 07/26/23 10:25) RASH ciprofloxacin Allergy (Unknown, Verified 07/26/23 10:25) Unknown furosemide Allergy (Unknown, Verified 07/26/23 10:25) rash latex [LATEX] Allergy (Unknown, Verified 07/26/23 10:25) RASH Sulfa (Sulfonamide Antibiotics) [SULFA(SULFONAMIDE ANTIBIOTICS)] Allergy (Unknown, Verified 07/26/23 10:25) DIZZINESS, VOMITTING, rash tolterodine [Detrol] Allergy (Unknown, Verified 07/26/23 10:25) rash Medication List - Last Reconciled 07/26/23 by Matty Pitts MD acetaminophen-codeine 300-30 mg 1 tab PO Q12H PRN albuterol sulfate 90 mcg/actuation 2 puffs inhalation Q4-6H PRN amitriptyline 25 mg PO BEDTIME aspirin (Adult Aspirin Regimen) 81 mg PO DAILY atorvastatin 10 mg PO DAILY bismuth subsalicylate (Bismuth) 2 tabs PO QID 14 days cholecalciferol (vitamin D3) 1 tab PO DAILY empagliflozin (Jardiance) mg PO DAILY fluconazole (Diflucan) 150 mg PO DAILY fluticasone propionate 50 mcg/actuation intranasal gabapentin mg PO BEDTIME PRN hydrocortisone 2.5% 1 appl [place] BID PRN hydrocortisone-pramoxine 2.5-1 % 1 appl [place] BID PRN levothyroxine mcg PO DAILY lisinopril 1 tab PO DAILY loratadine 1 tab PO DAILY metformin 1,000 mg PO BID metronidazole 250 mg PO QID 14 days nitrofurantoin monohyd/m-cryst 100 mg (Macrobid) 100 mg PO Q12H 3 days omeprazole 20 mg PO BID 14 days pantoprazole mg PO sucralfate (Carafate) 10 mL PO BID 2 weeks HPI HPI Comments History of Present Illness Details 52-year-old female patient status post h emorrhoidectomy for bleeding hemorrhoids returning 1 month postop. She feels much improved with no further pain or bleeding. Her bowels have been normal as well. [facility] Medical History PONV (postoperative nausea and vomiting) Thyroid disease Diabetes mellitus Arthritis GERD (gastroesophageal reflux disease) Hx of migraines Anxiety and depression CARMEN on CPAP Asthma Elevated cholesterol HTN (hypertension) Carpal tunnel syndrome Surgical History History of hemorrhoidectomy (06/17/23) S/P excision of lipoma (11/22/22) History of excision of epidermal inclusion cyst (07/13/22) History of excision of mass History of cholecystectomy History of esophagogastroduodenoscopy (EGD) Hx of colonoscopy History of lymph node excision Hx of arthroscopy of left knee History of incisional hernia repair History of appendectomy Family History Father No problems noted. Mother No problems noted. Social History Household Members: Spouse and Children Household Members Other:: lives with son Are you a primary direct care staffer to a significant other at home: No Alcohol intake: never Patient Tobacco Use Status: Current everyday Tobacco user Cigarettes Per Day: 3 Years Smoked: 33 Current occupational status: unemployed Physical Exam Vital Signs: Last Vital Signs Pulse 109 H 07/26/23 10:25 BP 119/64 07/26/23 10:25 BMI result Body Mass Index 30.7 Const General: no acute distress Nutritional Appearance: well nourished Orientation/consciousness: patient oriented x3 Limitations: no limitations Resp Effort & Inspection: normal respiratory effort GI Other: Anal examination reveals no further inflammation or tenderness in the perianal skin. The hemorrhoidal incision is clean and intact. No evidence of infection. Neuro General: patient oriented x3 Assessment & Plan Assessment & Plan (1) Internal hemorrhoid, bleeding: Code(s): K64.8 - Other hemorrhoids Plan 52-year-old female patient status post hemorrhoidectomy proximally 1 month ago. Her wounds are now well healed and she is asymptomatic. She should follow up as needed. Coding Level of Care Code Global (77476) Diagnoses Internal hemorrhoid, bleeding K64.8
[2023-07-26 10:25] VITALS: BP 119/64; PULSE 109; BMI 30.7
== END 2023-07-26 10:49 | disposition home or self-care (01) ==
PROVIDERS: PCP Registered Nurse; Visit Provider Surgery
DX: K64.8 Other hemorrhoids (principal)
CPT/HCPCS: 99024

== ENCOUNTER → 2023-07-26 09:27 | Outpatient (BNVA) | payer MEDICARE, MEDICAID, SELFPAY | PROVIDERS: PCP Registered Nurse; Visit Provider Surgery | DX: Z09 Encounter for follow-up examination after completed treatment for conditions other than malignant neoplasm (principal); Z87.19 Personal history of other diseases of the digestive system | CPT/HCPCS: 99212 ==

== ENCOUNTER 2023-08-06 15:18 | Outpatient (AMB) | payer MEDICARE, MEDICAID, SELFPAY ==
[2023-08-06 15:25] VITALS: BP 104/66; PULSE 111; O2SAT 98; BMI 30.6
--- NOTE | 2023-08-06 15:25 | HO.NEPHOV_ITS ---
HPI HPI Comments History of Present Illness Details 52-year-old woman with a history of diab etes mellitus since 1992. She has been referred for microalbuminuria of 19 9. Overall blood sugar seems to be well controlled No significant hypertension. She is on low-dose of lisinopril 5 mg. She is also on Jardiance. 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 [facility] Medical History PONV (postoperative nausea and vomiting) Thyroid disease Diabetes mellitus Arthritis GERD (gastroesophageal reflux disease) Hx of migraines Anxiety and depression CARMEN on CPAP Asthma Elevated cholesterol HTN (hypertension) Carpal tunnel syndrome Surgical History History of hemorrhoidectomy (06/17/23) S/P excision of lipoma (11/22/22) History of excision of epidermal inclusion cyst (07/13/22) History of excision of mass History of cholecystectomy History of esophagogastroduodenoscopy (EGD) Hx of colonoscopy History of lymph node excision Hx of arthroscopy of left knee History of incisional hernia repair History of appendectomy Family History Father No problems noted. Mother No problems noted. Social History Household Members: Spouse and Children Household Members Other:: lives with son Are you a primary health care liaison to a significant other at home: No Alcohol intake: never Patient Tobacco Use Status: Current everyday Tobacco user Cigarettes Per Day: 3 Years Smoked: 33 Current occupational status: unemployed Vital Signs 08/06/23 15:25 Height 5 ft 2 in Weight 167 lb 6 oz BMI 30.6 BP 104/66 Blood Pressure Location Lt brachial Position Sitting Pulse 111 H Pulse Source Pulse Oximeter Pulse Oximetry (%) 98 Oxygen Delivery Method Room Air Physical Exam Vital Signs: Last Vital Signs Pulse 111 H 08/06/23 15:25 BP 104/66 08/06/23 15:25 Pulse Ox 98 08/06/23 15:25 Oxygen Delivery Method Room Air 08/06/23 15:25 BMI result Body Mass Index 30.6 Const General: comfortable Nutritional Appearance: well nourished Orientation/consciousness: patient oriented x3 HEENT Head: No normal to inspection Mouth: moist mucous membranes Neck Neck: Yes supple and Yes no JVD Resp Auscultation: clear to auscultation bilaterally, no rales and rub present Cardio Jugular venous distension: no JVD Palpation: no palpable S3 and no palpable S4 Heart sounds: no rubs GI Palpation (GI): Soft to palpation and nontender Percussion: No Fluid wave present General: Yes no CVA tenderness Back/Spine/Pelvis Back: no CVA tenderness Skin General skin exam: no rashes or lesions noted Neuro General: patient oriented x3 Extrem General: Yes no pedal edema and No clubbing Assessment & Plan Assessment & Plan (1) Microalbuminuria: Code(s): R80.9 - Proteinuria, unspecified Plan Middle-aged woman with longstanding history of diabetes mellitus with microalbuminuria. Microalbuminuria mostly due to underlying diabetic kidney disease. She is also slightly overweight which could be contributing factor as well. Goal is to slow the portion disease. At this time renal function is stable at baseline. Increase her to lose some weight and stay physically active. Hemoglobin A1c should be maintained less than 7%. Continue ELIJAH inhibitor for renal protection. Since the blood pressure rather low I would not increase the dose of ELIJAH inhibitor at this time. We will continue to monitor urine protein excretion along serum creatinine. Agree with SGLT2 inhibitors. I have reassured her answered all her questions she returned to office in the next few weeks after the baseline workup is completed Orders: Orders Total Protein Urine Random Today R80.9 - Proteinuria, unspecified Creatinine Urine Today R80.9 - Proteinuria, unspecified UA and rflx microscopic Today R80.9 - Proteinuria, unspecified Coding Level of Care Code New Pt Level 4 (69663) Diagnoses Microalbuminuria R80.9 Results Reviewed Nephrology Results: Sodium 138 mmol/L (135-145) 07/03/23 Potassium 4.3 mmol/L (3.3-5.1) 07/03/23 Chloride 106 mmol/L (96-108) 07/03/23 Carbon Dioxide 26 mmol/L (22-29) 07/03/23 BUN 13 mg/dL (9-16) 07/03/23 Creatinine 0.70 mg/dL (0.5-1.4) 07/03/23 Calcium 9.6 mg/dL (8.4-10.2) 01/03/24 Urine Creatinine 39.23 mg/dL 07/03/23
== END 2023-08-06 15:43 | disposition home or self-care (01) ==
PROVIDERS: PCP Registered Nurse; Visit Provider Internal Medicine Hypertension Specialist
DX: R80.9 Proteinuria, unspecified (principal)
CPT/HCPCS: 99204

== ENCOUNTER → 2023-08-06 15:18 | Outpatient (BNVA) | payer MEDICARE, MEDICAID, SELFPAY | PROVIDERS: PCP Registered Nurse; Visit Provider Internal Medicine Hypertension Specialist | DX: R80.9 Proteinuria, unspecified (principal) | CPT/HCPCS: 99202 ==

== ENCOUNTER 2023-08-27 13:50 | Outpatient (REF) | payer MEDICARE, SELFPAY ==
--- NOTE | ~2023-08-27 | MM_ITS ---
EXAMINATION: MM SCREENING DIGITAL BREAST TOMOSYNTHESIS, BILATERAL CLINICAL INFORMATION: Screening. Asymptomatic. COMPARISON: Mammography: This study is compared with prior exams dating back to 2017. TECHNIQUE: Digital breast tomosynthesis is performed in both the craniocaudal and mediolateral oblique views along with computer-aided detection (CAD). Synthesized 2D images are generated from the tomosynthesis. FINDINGS: The breasts are almost entirely fatty (ACR BI-RADS breast composition Category a). There are no significant masses, abnormal calcifications, or other abnormalities. MM/MM tomosynthesis screening BI IMPRESSION: No mammographic evidence of malignancy. ASSESSMENT: BI-RADS BI-RADS 1 - Negative RECOMMENDATION: Routine annual mammography screening. 1 year F/U This examination should not preclude the clinical evaluation of a suspicious palpable abnormality. This patient's information was entered into a reminder system with a target due date for their next mammogram.
== END 2023-08-27 13:51 | disposition home or self-care (01) ==
LOC: HO.MAMMO 13:50
PROVIDERS: PCP Registered Nurse; Visit Provider Registered Nurse
DX: Z12.31 Encounter for screening mammogram for malignant neoplasm of breast (principal)
CPT/HCPCS: 77063; 77067

== ENCOUNTER → 2023-08-27 14:00 | Outpatient (BNV) | payer MEDICARE, SELFPAY | PROVIDERS: PCP Registered Nurse; Visit Provider Radiology Diagnostic Radiology | DX: Z12.31 Encounter for screening mammogram for malignant neoplasm of breast (principal) | CPT/HCPCS: 77063; 77067 ==

== ENCOUNTER 2023-09-17 10:35 | Outpatient (REF) | payer MEDICARE, SELFPAY ==
[2023-09-17 12:41] LABS: Appearance Urine Clear; Color Urine Yellow; Glucose Urine UA >=1000 mg/dL (Negative); Leukocyte Esterase Urine Negative (Negative); Nitrite Urine Negative (Negative); PH 6.5 (5.0-9.0); Specific Gravity - Urine 1.025 (1.005-1.025); UMIC TRIGGER UA YES; Urine Blood Negative (Negative); Urine Ketones Negative (Negative); Urine Protein Negative (Neg-Trace)
[2023-09-17 12:45] LABS: Bacteria Urine Trace (None Seen); Hyaline Casts Urine 0-2 /LPF (0-2); RBC Urine 0-2 /HPF (0-2); WBC Urine 0-5 /HPF (0-5)
[2023-09-17 13:12] LABS: Creatinine Urine 52.12 mg/dL; Total Protein Urine Random 12 mg/dL (<12)
== END 2023-09-17 10:36 | disposition home or self-care (01) ==
LOC: HO.LAB 10:35
PROVIDERS: PCP Registered Nurse; Visit Provider Internal Medicine Hypertension Specialist
DX: R80.9 Proteinuria, unspecified (principal)
CPT/HCPCS: 81001; 82570; 84156

== ENCOUNTER 2023-09-24 14:58 | Outpatient (AMB) | payer MEDICARE, SELFPAY ==
[2023-09-24 14:59] VITALS: BP 106/76; PULSE 113; O2SAT 94; BMI 30.7
--- NOTE | 2023-09-24 14:59 | HO.NEPHOV_ITS ---
HPI HPI Comments History of Present Illness Details 52-year-old woman with a history of diab etes mellitus since 1992. She has been referred for microalbuminuria of 19 9. Overall blood sugar seems to be well controlled No significant hypertension. She is on low-dose of lisinopril 5 mg. She is also on Jardiance. 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 [facility] Medical History PONV (postoperative nausea and vomiting) Thyroid disease Diabetes mellitus Arthritis GERD (gastroesophageal reflux disease) Hx of migraines Anxiety and depression CARMEN on CPAP Asthma Elevated cholesterol HTN (hypertension) Carpal tunnel syndrome Surgical History History of hemorrhoidectomy (06/17/23) S/P excision of lipoma (11/22/22) History of excision of epidermal inclusion cyst (07/13/22) History of excision of mass History of cholecystectomy History of esophagogastroduodenoscopy (EGD) Hx of colonoscopy History of lymph node excision Hx of arthroscopy of left knee History of incisional hernia repair History of appendectomy Family History Father No problems noted. Mother No problems noted. Social History Household Members: Spouse and Children Household Members Other:: lives with son Are you a primary healthcare representative to a significant other at home: No Alcohol intake: never Patient Tobacco Use Status: Current everyday Tobacco user Cigarettes Per Day: 3 Years Smoked: 33 Current occupational status: unemployed Vital Signs 09/24/23 14:59 Height 5 ft 2 in Weight 168 lb BMI 30.7 BP 106/76 Blood Pressure Location Rt brachial Position Sitting Pulse 113 H Pulse Source Pulse Oximeter Pulse Oximetry (%) 94 Oxygen Delivery Method Room Air Physical Exam Vital Signs: Last Vital Signs Pulse 113 H 09/24/23 14:59 BP 106/76 09/24/23 14:59 Pulse Ox 94 09/24/23 14:59 Oxygen Delivery Method Room Air 09/24/23 14:59 BMI result Body Mass Index 30.7 Const General: comfortable Nutritional Appearance: well nourished Orientation/consciousness: patient oriented x3 HEENT Head: No normal to inspection Mouth: moist mucous membranes Neck Neck: Yes supple and Yes no JVD Resp Auscultation: clear to auscultation bilaterally, no rales and rub present Cardio Jugular venous distension: no JVD Palpation: no palpable S3 and no palpable S4 Heart sounds: no rubs GI Palpation (GI): Soft to palpation and nontender Percussion: No Fluid wave present General: Yes no CVA tenderness Back/Spine/Pelvis Back: no CVA tenderness Skin General skin exam: no rashes or lesions noted Neuro General: patient oriented x3 Extrem General: Yes no pedal edema and No clubbing Assessment & Plan Assessment & Plan (1) Microalbuminuria: Code(s): R80.9 - Proteinuria, unspecified Plan Middle-aged woman with longstanding history of diabetes mellitus with micr oalbuminuria. Microalbuminuria mostly due to underlying diabetic kidney disease. She is also slightly overweight which could be contributing factor as well. Goal is to slow the portion disease. At this time renal function is stable at baseline. Encouraged her to lose some weight and stay physically active. Hemoglobin A1c should be maintained less than 7%. Continue ELIJAH inhibitor for renal protection. Since the blood pressure rather low I would not increase the dose of ELIJAH inhibitor at this time. We will continue to monitor urine protein excretion along serum creatinine. Agree with SGLT2 inhibitors. I have reassured her answered all her questions Orders: Orders Total Protein Urine Random 1 Year R80.9 - Proteinuria, unspecified Basic Metabolic Panel 1 Year R80.9 - Proteinuria, unspecified Creatinine Urine 1 Year N05.9 - Unspecified nephritic syndrome with unspecified morphologic changes, R80.9 - Proteinuria, unspecified Coding Level of Care Code Est Pt Level 3 (18800) Diagnoses Microalbuminuria R80.9 Results Reviewed Nephrology Results: Sodium 138 mmol/L (135-145) 07/03/23 Potassium 4.3 mmol/L (3.3-5.1) 07/03/23 Chloride 106 mmol/L (96-108) 07/03/23 Carbon Dioxide 26 mmol/L (22-29) 07/03/23 BUN 13 mg/dL (9-16) 07/03/23 Creatinine 0.70 mg/dL (0.5-1.4) 07/03/23 Calcium 9.6 mg/dL (8.4-10.2) 07/03/23 Urine Protein Negative mg/dL (Neg-Trace) 09/17/23 Urine Creatinine 52.12 mg/dL 09/17/23
== END 2023-09-24 15:17 | disposition home or self-care (01) ==
PROVIDERS: PCP Registered Nurse; Visit Provider Internal Medicine Hypertension Specialist
DX: R80.9 Proteinuria, unspecified (principal)
CPT/HCPCS: 99213

== ENCOUNTER → 2023-09-24 14:58 | Outpatient (BNVA) | payer MEDICARE, SELFPAY | PROVIDERS: PCP Registered Nurse; Visit Provider Internal Medicine Hypertension Specialist | DX: R80.9 Proteinuria, unspecified (principal) | CPT/HCPCS: 99212 ==

== ENCOUNTER 2023-10-02 11:08 | Outpatient (REF) | payer MEDICARE, SELFPAY ==
[2023-10-02 14:03] LABS: Alanine Aminotransferase 13 U/L (0-31); Albumin Level 4.3 g/dL (3.5-5.0); Alkaline Phosphatase 93 U/L (39-117); Aspartate Amino Transferase 15 U/L (5-31); Bilirubin Direct < 0.2 mg/dL (0.0-0.5); Bilirubin Total 0.2 mg/dL (0.0-1.0); Total Protein 7.5 g/dL (6.5-8.0)
[2023-10-02 14:19] LABS: Thyroid Stimulating Hormone 0.11 uIU/mL (0.32-4.0)
== END 2023-10-02 11:09 | disposition home or self-care (01) ==
LOC: HO.HHCL 11:08
PROVIDERS: Visit Provider Registered Nurse
DX: E11.65 Type 2 diabetes mellitus with hyperglycemia (principal); Z79.4 Long term (current) use of insulin
CPT/HCPCS: 36415; 80076; 84443

== ENCOUNTER 2023-10-11 15:03 | Outpatient (REF) | payer MEDICARE, SELFPAY ==
[2023-10-11 16:51] LABS: Free T4 (Free Thyroxine) 2.63 ng/dL (0.71-1.85); TSH reflex Free T4 0.01 uIU/mL (0.32-4.0); Thyroid Stimulating Hormone 0.01 uIU/mL (0.32-4.0)
== END 2023-10-11 15:04 | disposition home or self-care (01) ==
LOC: HO.HHCL 15:03
PROVIDERS: Visit Provider Registered Nurse
DX: E06.3 Autoimmune thyroiditis (principal)
CPT/HCPCS: 36415; 84439; 84443

== ENCOUNTER 2023-12-04 09:26 | Outpatient (REF) | payer MEDICARE, SELFPAY ==
[2023-12-04 12:06] LABS: Rheumatoid Factor < 13.0 IU/mL (<15.0)
[2023-12-04 12:19] LABS: C Reactive Protein 0.69 mg/dL (< or = 0.50)
[2023-12-04 12:40] LABS: Erythrocyte Sedimentation Rate 19 MM/HR (0-20)
[2023-12-04 12:41] LABS: Thyroid Stimulating Hormone 0.24 uIU/mL (0.32-4.0)
[2023-12-06 15:34] LABS: Cyclic Citrullinated Peptide <16 UNITS
== END 2023-12-04 09:27 | disposition home or self-care (01) ==
LOC: HO.HHCL 09:26
PROVIDERS: Visit Provider Registered Nurse
DX: M79.7 Fibromyalgia (principal); M25.50 Pain in unspecified joint; E06.3 Autoimmune thyroiditis
CPT/HCPCS: 36415; 84439; 84443; 85652; 86140; 86200; 86431

== ENCOUNTER 2024-02-10 13:21 | Outpatient (REF) | payer MEDICARE, SELFPAY ==
[2024-02-10 17:08] LABS: Free T4 (Free Thyroxine) 1.25 ng/dL (0.71-1.85); Thyroid Stimulating Hormone 1.53 uIU/mL (0.32-4.0)
== END 2024-02-10 13:22 | disposition home or self-care (01) ==
LOC: HO.HHCL 13:21
PROVIDERS: Visit Provider Registered Nurse
DX: E06.3 Autoimmune thyroiditis (principal)
CPT/HCPCS: 36415; 84439; 84443

== ENCOUNTER 2024-03-10 09:41 | Emergency (ER) | payer MEDICARE, SELFPAY ==
[2024-03-10 11:24] VITALS: BP 131/74; PULSE 105; RESP 16; TEMP 36.8; O2SAT 97; BMI 29.0
--- NOTE | 2024-03-10 11:24 | ED_ITS ---
HPI - General Adult General Chief complaint: Eye Problems Stated complaint: Eye irritation, cough Time Seen by Provider: 03/10/24 11:37 Source: patient Mode of arrival: ambulatory Limitations: no limitations History of Present Illness ED Provider: Taryn HPI narrative: 53yo F with PMHx GERD, H.pylori, & diabetes presenting with CC of bilateral eye redness and discharge x2 weeks. Started in right eye and spread to the left. Denies visual changes, itching. Eyes are crusted shut in the morning after sleeping. URI symptoms lately, improving. No cp, sob, fevers, n/v/d Related Data Home Medications ?Medication ?Instructions ?Recorded ?Confirmed amitriptyline 25 mg tablet 25 mg PO BEDTIME 08/01/20 07/26/23 aspirin 81 mg tablet,delayed 81 mg PO DAILY 08/01/20 07/26/23 release (Adult Aspirin Regimen) atorvastatin 10 mg tablet 10 mg PO DAILY 08/01/20 07/26/23 metformin 1,000 mg tablet 1,000 mg PO BID 08/08/20 07/26/23 albuterol sulfate 90 mcg/actuation 2 puff inhalation Q4-6H PRN 09/16/20 07/26/23 aerosol inhaler Wheezing empagliflozin 25 mg tablet mg PO DAILY 10/26/21 07/26/23 (Jardiance) fluticasone propionate 50 intranasal 10/26/21 07/26/23 mcg/actuation nasal spray,suspension levothyroxine 175 mcg tablet mcg PO DAILY 10/26/21 07/26/23 pantoprazole 40 mg tablet,delayed mg PO 10/26/21 07/26/23 release cyanocobalamin (vitamin B-12) 1,000 mcg PO QAM 08/06/23 1,000 mcg tablet (Vitamin B-12) gabapentin 300 mg capsule 300 mg PO TID 08/06/23 insulin glargine U-300 conc 300 28 unit subcut BEDTIME 08/06/23 unit/mL (3 mL) subcutaneous pen (Toujeo Max U-300 SoloStar) lisinopril 5 mg tablet 5 mg PO DAILY 09/24/23 09/24/23 Previous Rx's ?Medication ?Instructions ?Recorded sucralfate 100 mg/mL oral 10 ml PO BID 2 weeks #280 mL 10/26/21 suspension (Carafate) fluconazole 150 mg tablet 150 mg PO DAILY #1 tab 03/23/23 (Diflucan) acetaminophen 300 mg-codeine 30 mg 1 tab PO Q12H PRN pain (scale 06/12/23 tablet score 7-10) #14 tabs erythromycin 5 mg/gram (0.5 %) eye 1 appl ophthalmic (eye) TID 5 days 03/10/24 ointment #3.5 grams loratadine 10 mg tablet 10 mg PO DAILY #30 tabs 03/10/24 Allergies Allergy/AdvReac Type Severity Reaction Status Date / Time erythromycin base Allergy Severe HIVES Verified 03/10/24 11:26 [Erythromycin Base] Penicillins Allergy Severe HIVES Verified 03/10/24 11:26 adhesive tape [ADHESIVE TAPE] Allergy Unknown RASH Verified 03/10/24 11:26 ciprofloxacin Allergy Unknown Unknown Verified 03/10/24 11:26 furosemide Allergy Unknown rash Verified 03/10/24 11:26 latex [LATEX] Allergy Unknown RASH Verified 03/10/24 11:26 Sulfa (Sulfonamide Allergy Unknown DIZZINESS, Verified 03/10/24 11:26 Antibiotics) VOMITTING, [SULFA(SULFONAMIDE rash ANTIBIOTICS)] tolterodine [Detrol] Allergy Unknown rash Verified 03/10/24 11:26 Review of Systems Review of Systems: Yes all other systems are reviewed and are negative PMFSH Past Medical History Attestation statement: The following information was validated with the patient. Source: old records reviewed and nursing notes reviewed Medical History PONV (postoperative nausea and vomiting) Thyroid disease Diabetes mellitus Arthritis GERD (gastroesophageal reflux disease) Hx of migraines Anxiety and depression CARMEN on CPAP Asthma Elevated cholesterol HTN (hypertension) Carpal tunnel syndrome Surgical History History of hemorrhoidectomy (06/17/23) S/P excision of lipoma (11/22/22) History of excision of epidermal inclusion cyst (07/13/22) History of excision of mass History of cholecystectomy History of esophagogastroduodenoscopy (EGD) Hx of colonoscopy History of lymph node excision Hx of arthroscopy of left knee History of incisional hernia repair History of appendectomy Family History Family History Father No problems noted. Mother No problems noted. Social History Social History Household Members: Spouse and Children Household Members Other:: lives with son Are you a primary patient centered care specialist to a significant other at home: No Alcohol intake: never Patient Tobacco Use Status: Current everyday Tobacco user Cigarettes Per Day: 3 Years Smoked: 33 Advance Directives: No Advance Directives Information Provided: No Current occupational status: unemployed Physical Exam ED Vital Signs: Vital Signs - 24 hr 03/10/24 11:24 Temperature 98.3 F Pulse Rate 105 H Respiratory Rate 16 Blood Pressure 131/74 Pulse Oximetry 97 Oxygen Delivery Method Room Air BMI result Body Mass Index 29.0 vss Appearance: Alert.? Oriented X3.? No acute cardiopulmonary distress Head: Normocephalic, atraumatic ENT: Pharynx normal.??External ears normal. Mild conjunctival injection bilaterally. No pain with EOM, no proptosis Neck: Normal inspection.? Neck supple.? CVS: Pulses normal.? Respiratory: No respiratory distress.? Skin: ? Normal skin color. Extremities: 5/5 strength to bilateral upper and lower extremities Neuro: Oriented X 3.? No motor deficit.? No sensory deficit. Course Course Course Narrative: This is an RME done by [facility]: Additional HPI, ROS, PE not included below will be deferred to primary provider. 53yo F with PMHx GERD, H.pylori, & diabetes presenting with CC of bilateral eye redness and discharge x2 weeks. Started in right eye and spread to the left. Denies visual changes, itching. Eyes are crusted shut in the morning after sleeping. URI symptoms lately, improving. No cp, sob, fevers, n/v/d Appearance: Alert.? Oriented X3.? No acute cardiopulmonary distress Head: Normocephalic, atraumatic ENT: Pharynx normal.??External ears normal. Mild conjunctival injection bilaterally. No pain with EOM, no proptosis Neck: Normal inspection.? Neck supple.? CVS: Pulses normal.? Respiratory: No respiratory distress.? Skin: ? Normal skin color. Extremities: 5/5 strength to bilateral upper and lower extremities Neuro: Oriented X 3.? No motor deficit.? No sensory deficit. Reevaluation(s) Reevaluation #1: Patient to be dc from [facility] w/ atbx for pink eye. Educated patient on diagnosis and treatment plan, answered all question, patient verbalizes understanding. At this time patient will be discharged home, advised to return with new or worsening symptoms. Educated on worrisome signs and symptoms and when to return. At this time I feel comfortable discharge home. Time: 11:33 Medical Decision Making Medical Decision Making [facility] Narrative: 53 yo f presents w/ b/l eye redness and d/c x 2 weeks. Recent URI now improving PE mild b/l injected conjunctiva, no d/c noted b/l. EOMI and pain free hx and pe concerning for bacterial conjunctivitis. No signs of acute closed angle gluamcoma, wet macular degneration, orbital cellulitis, fb in eye. Plan- eye exam. Differential Diagnosis Differential Diagnoses: The differential diagnosis associated with the presentation includes hx and pe concerning for bacterial conjunctivitis. No signs of acute closed angle gluamcoma, wet macular degneration, orbital cellulitis, fb in eye. Admission/Observation Consideration of admission/observation: Escalation of care including admission/observation considered [facility] External Record Review External record reviewed: Office record, Outpatient record, Prior outpatient labs, Prior outpatient radiology and Primary care record Chronic Conditions Patient?s care impacted by: Diabetes and Other (GERD, HLD ) Discharge Plan Discharge Clinical Impression: Conjunctivitis, Allergies Patient Disposition: Home, Self-Care Instructions: Conjunctivitis (ED), Allergy Testing (ED) Additional Instructions: Take your medications as prescribed. If you were prescribed antibiotics today, it is important that you take your medication to their entirety, do not skip any doses, do not finish them early. Follow-up with your primary care provider this week. Return to the emergency department with new or worsening symptoms. Such as fevers, chills, chest pain, shortness of breath, nausea, vomiting, dizziness, headache, vision changes, lethargy In case of emergency call 911 Prescriptions: New loratadine 10 mg tablet 10 mg PO DAILY Qty: 30 0RF erythromycin 5 mg/gram (0.5 %) ointment 1 appl ophthalmic (eye) TID 5 Days Qty: 3.5 0RF No Action albuterol sulfate 90 mcg/actuation HFA aerosol inhaler 2 puff inhalation Q4-6H PRN (Reason: Wheezing) fluconazole [Diflucan] 150 mg tablet 150 mg PO DAILY Qty: 1 0RF acetaminophen-codeine 300-30 mg tablet 1 tab PO Q12H PRN (Reason: pain (scale score 7-10)) Qty: 14 0RF aspirin [Adult Aspirin Regimen] 81 mg tablet,delayed release (DR/EC) 81 mg PO DAILY atorvastatin 10 mg tablet 10 mg PO DAILY amitriptyline 25 mg tablet 25 mg PO BEDTIME metformin 1,000 mg tablet 1,000 mg PO BID fluticasone propionate 50 mcg/actuation spray,suspension intranasal pantoprazole 40 mg tablet,delayed release (DR/EC) PO Jardiance 25 mg tablet PO DAILY levothyroxine 175 mcg tablet PO DAILY sucralfate [Carafate] 100 mg/mL suspension 10 ml PO BID 14 Days Qty: 280 0RF gabapentin 300 mg capsule 300 mg PO TID cyanocobalamin (vitamin B-12) [Vitamin B-12] 1,000 mcg tablet 1,000 mcg PO QAM Toujeo Max U-300 SoloStar 300 unit/mL (3 mL) insulin pen 28 unit subcut BEDTIME lisinopril 5 mg tablet 5 mg PO DAILY Referrals: Bijal,Xi, YARD ATTENDANT [Primary Care Provider] - 2 days Print Language: Setswana
[2024-03-10 11:50] VITALS: BP 131/74; PULSE 105; RESP 16; TEMP 36.8; O2SAT 97
== END 2024-03-10 11:51 | disposition home or self-care (01) ==
PROVIDERS: Emergency Provider Emergency Medicine Emergency Medical Services; PCP Registered Nurse
DX: H10.13 Acute atopic conjunctivitis, bilateral (principal); E11.9 Type 2 diabetes mellitus without complications; I10 Essential (primary) hypertension; E78.5 Hyperlipidemia, unspecified; F17.210 Nicotine dependence, cigarettes, uncomplicated
CPT/HCPCS: 99282; 99283

== ENCOUNTER 2024-09-21 13:06 | Outpatient (AMB) | payer MEDICARE, SELFPAY ==
--- NOTE | 2024-09-21 13:09 | HO.NEPHOV_ITS ---
Vital Signs 09/21/24 13:10 Height 5 ft 2 in Weight 167 lb BMI 30.5 BP 100/70 Blood Pressure Location Lt brachial Position Sitting Pulse 97 Pulse Source Pulse Oximeter Pulse Oximetry (%) 101 H Oxygen Delivery Method Room Air Intake Visit Reasons: Microalbuminuria/ 1 Year FU/LVM Automatic Clipper And Stripper Required: Yes Automatic Clipper And Stripper Name: [id number] Garima Accompanied by: Self / Same As Patient Allergies erythromycin base [Erythromycin Base] Allergy (Severe, Verified 09/21/24 13:12) HIVES Penicillins Allergy (Severe, Verified 09/21/24 13:12) HIVES adhesive tape [ADHESIVE TAPE] Allergy (Unknown, Verified 09/21/24 13:12) RASH ciprofloxacin Allergy (Unknown, Verified 09/21/24 13:12) Unknown furosemide Allergy (Unknown, Verified 09/21/24 13:12) rash latex [LATEX] Allergy (Unknown, Verified 09/21/24 13:12) RASH Sulfa (Sulfonamide Antibiotics) [SULFA(SULFONAMIDE ANTIBIOTICS)] Allergy (Unknown, Verified 09/21/24 13:12) DIZZINESS, VOMITTING, rash tolterodine [Detrol] Allergy (Unknown, Verified 09/21/24 13:12) rash Medication List - Last Reconciled 09/21/24 by Rubin Ramirez MD acetaminophen-codeine 300-30 mg 1 tab PO Q12H PRN albuterol sulfate 90 mcg/actuation 2 puffs inhalation Q4-6H PRN amitriptyline 25 mg PO BEDTIME aspirin (Adult Aspirin Regimen) 81 mg PO DAILY atorvastatin 10 mg PO DAILY cyanocobalamin (vitamin B-12) (Vitamin B-12) 1,000 mcg PO QAM empagliflozin (Jardiance) mg PO DAILY erythromycin 1 appl ophthalmic (eye) TID 5 days fluconazole (Diflucan) 150 mg PO DAILY fluticasone propion-salmeterol 250-50 mcg/dose (Wixela Inhub) 1 ea inhalation BID fluticasone propionate 50 mcg/actuation intranasal gabapentin 300 mg PO TID insulin glargine U-300 conc (Toujeo Max U-300 SoloStar) 28 units subcut BEDTIME levothyroxine mcg PO DAILY lisinopril 5 mg PO DAILY loratadine 10 mg PO DAILY metformin 1,000 mg PO BID pantoprazole mg PO sucralfate (Carafate) 10 mL PO BID 2 weeks HPI Comments Details: 52-year-old woman with a history of diabetes mellitus since 1992. She has been referred for microalbuminuria of 19 9. Overall blood sugar seems to be well controlled No significant hypertension. She is on low-dose of lisinopril 5 mg. She is also on Jardiance. 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 complaints Automatic Clipper And Stripper service was used [facility] Medical History PONV (postoperative nausea and vomiting) Thyroid disease Diabetes mellitus Arthritis GERD (gastroesophageal reflux disease) Hx of migraines Anxiety and depression CARMEN on CPAP Asthma Elevated cholesterol HTN (hypertension) Carpal tunnel syndrome Surgical History History of hemorrhoidectomy (06/17/23) S/P excision of lipoma (11/22/22) History of excision of epidermal inclusion cyst (07/13/22) History of excision of mass History of cholecystectomy History of esophagogastroduodenoscopy (EGD) Hx of colonoscopy History of lymph node excision Hx of arthroscopy of left knee History of incisional hernia repair History of appendectomy Family History Father No problems noted. Mother No problems noted. Social History Household Members: Spouse and Children Household Members Other:: lives with son Are you a primary family member caretaker to a significant other at home: No Alcohol intake: never Patient Tobacco Use Status: Current everyday Tobacco user Cigarettes Per Day: 3 Years Smoked: 33 Current occupational status: unemployed Physical Exam Vital Signs: Last Vital Signs Pulse 97 09/21/24 13:10 BP 100/70 09/21/24 13:10 Pulse Ox 101 H 09/21/24 13:10 Oxygen Delivery Method Room Air 09/21/24 13:10 BMI result Body Mass Index 30.5 Comfortable Neck supple no JVD. Lungs entry equal no rales. Heart S1-S2 heard no gallop or rub. Abdomen soft nontender. Neuro alert awake oriented. No asterixis. Extremities no edema. Results Reviewed Nephrology Results: Urine Protein Negative mg/dL (Neg-Trace) 09/17/23 Urine Creatinine 52.12 mg/dL 09/17/23 Assessment & Plan Assessment & Plan (1) Microalbuminuria: Code(s): R80.9 - Proteinuria, unspecified Category: Medical Plan Middle-aged woman with longstanding history of diabetes mellitus with microalbuminuria. Microalbuminuria mostly due to underlying diabetic kidney disease. She is also slightly overweight which could be contributing factor as well. Goal is to slow the progression of kidney disease. At this time renal function is stable at baseline. Encouraged her to lose some weight and stay physically active. Hemoglobin A1c should be maintained less than 7%. Continue ELIJAH inhibitor for renal protection. Since the blood pressure rather low I would not increase the dose of ELIJAH inhibitor at this time. We will continue to monitor urine protein excretion along serum creatinine. Agree with SGLT2 inhibitors. I have reassured her answered all her questions Orders: Orders Basic Metabolic Panel Today R80.9 - Proteinuria, unspecified Total Protein Urine Random Today R80.9 - Proteinuria, unspecified UA and rflx microscopic Today R80.9 - Proteinuria, unspecified Creatinine Urine Today R80.9 - Proteinuria, unspecified Coding Level of Care Code Est Pt Level 4 (34087) Diagnoses Microalbuminuria R80.9
[2024-09-21 13:10] VITALS: BP 100/70; PULSE 97; O2SAT 101; BMI 30.5
== END 2024-09-21 13:26 | disposition home or self-care (01) ==
LOC: HO.HKA 13:07
PROVIDERS: PCP Registered Nurse; Visit Provider Internal Medicine Hypertension Specialist
DX: R80.9 Proteinuria, unspecified (principal)
CPT/HCPCS: 99214

== ENCOUNTER → 2024-09-21 13:06 | Outpatient (BNVA) | payer MEDICARE, SELFPAY | PROVIDERS: PCP Registered Nurse; Visit Provider Internal Medicine Hypertension Specialist | DX: R80.9 Proteinuria, unspecified (principal); E11.9 Type 2 diabetes mellitus without complications | CPT/HCPCS: 99212 ==

== ENCOUNTER 2024-09-30 11:48 | Outpatient (REF) | payer MEDICARE, SELFPAY ==
[2024-09-30 12:34] LABS: Anion Gap 12 (12-20); Blood Urea Nitrogen 20 mg/dL (9-16); Calcium 9.6 mg/dL (8.4-10.2); Carbon Dioxide 28 mmol/L (22-29); Chloride 104 mmol/L (96-108); Estimated Glomerular Filt Rate > 60; Glucose Random 150 mg/dL (60-115); Potassium 4.4 mmol/L (3.3-5.1); Sodium 140 mmol/L (135-145)
[2024-09-30 12:48] LABS: Appearance Urine Clear; Color Urine Yellow; Glucose Urine UA >=1000 mg/dL (Negative); Leukocyte Esterase Urine Negative (Negative); Nitrite Urine Negative (Negative); Specific Gravity - Urine 1.015 (1.005-1.025); UMIC TRIGGER UA YES; Urine Blood Negative (Negative); Urine Ketones Negative (Negative); Urine Protein Negative (Neg-Trace)
[2024-09-30 12:50] LABS: Bacteria Urine None Seen (None Seen); Hyaline Casts Urine 0-2 /LPF (0-2); RBC Urine 0-2 /HPF (0-2); Squamous Epithelial Cell Urine 0-2 /HPF (0-2); WBC Urine 0-5 /HPF (0-5)
[2024-09-30 13:21] LABS: Creatinine Urine 37.58 mg/dL; Total Protein Urine Random 10 mg/dL (<12)
--- OUTSIDE RECORDS SUMMARY | 2024-09-30 14:24 | XMS_ITS | Encounter Summary ---
Author Organization [employer] Address [address] [facility] 7t [place] [address] Care Team Providers Care Pattern Grader Supervisor Name Role Phone [facility] Primary Care Provider [phone] Reason for Visit * Reason Comments Med Refill Encounter Details Date Type Department Care Team ([facility] st Contact Info) Description 03/11/2024 Refill [facility] [address] [place], [place] [id number] [facility] [address] [place] [address] Mixed hyperlipidemia Social History Tobacco Use Types Packs/Day Years Used Date Smoking Tobacco: Every Day Cigarettes Smokeless Tobacco: Never Alcohol Use Standard Drinks/Week Comments Never 0 (1 standard drink = 0.6 oz pur e alcohol) Depression Answer Date Recorded Patient Health Questionnaire-9 Score 0 02/10/2024 Patient Health Questionnaire-9 Score 0 02/10/2024 Last PHQ-9: Questionnaire Data Not on file 0 02/10/2024 Housing Stability Answer Date Recorded What is your housing situation today? I have roman burrell 02/10/[address] you li ve. Do you have problems with any of the following? None of the above 02/10/2024 Food Insecurity Answer Date Recorded Within the past 12 months, y ou worried that your food would run out before you got money to buy more: Never True 02/10/2024 Within the past 12 months,th e food you bought just didn't last and you didn't have enough money to get more: Never True 05/2024 Transportation Answer Date Recorded In the past 12 months, has l ack of transportation kept you from medical appts, meetings, work or from getting things needed for daily living? No 02/10/2024 Utilities Answer Date Recorded In the past 12 months, has t he electric, gas, oil or water company threatened to shut off services in your home? No 02/10/2024 Depression Answer Date Recorded Patient Health Questionnaire-2 Score 0 02/10/2024 Internet Access Answer Date Recorded Internet Access Q1 Yes 03/02/2024 Internet Access Q2 Not on file 03/02/2024 Comments Unknown Sex and Gender Information Value Date Recorded Sex Assigned at Female 04/30/2022 10:14 AM EDT Legal Sex Female 10:14 AM EDT Gender Identity Female 04/30/2022 10:14 AM EDT Sexual Orientation Straight 04/30/2022 10 :14 AM EDT documented as of this encounter Plan of Treatment Upcoming Encounters Date Type Department Care Team (Late st Contact Info) Description 12/23/2024 11:30 AM EDT Clinical Support [facility] [address] [place] [address] Katherin Frances RN documented as of this encounter Visit Diagnoses Diagnosis Mixed hyperlipidemia documented in this encounter Additional Health Concerns Assessment Noted Time PHQ-9 Depression Total Score: 0 02/10/20 24 12:29 PM EDT documented as of this encounter Care Teams Pattern Grader Supervisor Relationship Specialty Start Date End Date Xi Appiah FNP [address] [place] [address] PCP - General Family Medicine 02/22/22 documented as of this encounter
--- OUTSIDE RECORDS SUMMARY | 2024-09-30 14:24 | XMS_ITS | Encounter Summary ---
Author Organization [employer] Address [address] [facility] [facility] [address] [place] [address] Care Team Providers Care Mill Roll Rewinder Name Role Phone Xi Appiah SENIOR AUDITOR Primary Care Provider [phone] Encounter Details Date Type Department Care Team ([facility] st Contact Info) Description 01/20/2024 Orders Only [facility] [address] [place] [address] Aditi Levin MD 230 [place] [address] Multiple joint pain Social History Tobacco Use Types Packs/Day Years Used Date Smoking Tobacco: Every Day Cigarettes Smokeless Tobacco: Never Alcohol Use Standard Drinks/Week Comments Never 0 (1 standard drink = 0.6 oz pur e alcohol) Depression Answer Date Recorded Patient Health Questionnaire-9 Score 0 07/03/2023 Patient Health Questionnaire-9 Score 0 07/03/2023 Last PHQ-9: Questionnaire Data Not on file 0 07/03/2023 Housing Stability Answer Date Recorded What is your housing situation today? I have roman burrell 04/18/[address] you li ve. Do you have problems with any of the following? None of the above 04/18/2023 Food Insecurity Answer Date Recorded Within the past 12 months, y ou worried that your food would run out before you got money to buy more: Never True 04/18/2023 Within the past 12 months,th e food you bought just didn't last and you didn't have enough money to get more: Never True Transportation Answer Date Recorded In the past 12 months, has l ack of transportation kept you from medical appts, meetings, work or from getting things needed for daily living? No 04/18/2023 Utilities Answer Date Recorded In the past 12 months, has t he electric, gas, oil or water company threatened to shut off services in your home? No 04/18/2023 Depression Answer Date Recorded Patient Health Questionnaire-2 Score 0 07/03/2023 Comments Unknown Sex and Gender Information Value [...] Description 12/23/2024 11:30 AM EDT Clinical Support [facility] [address] [place] [address] Katherin Frances RN documented as of this encounter Visit Diagnoses Diagnosis Multiple joint pain Pain in joint, multiple sites documented in this encounter Additional Health Concerns Assessment Noted Time PHQ-9 Depression Total Score: 0 07/03/19 24 9:44 AM EST documented as of this encounter Care Teams Mill Roll Rewinder Relationship Specialty Start Date End Date Xi Appiah FNP [address] [place] [address] PCP - General Family Medicine 02/22/22 documented as of this encounter
--- OUTSIDE RECORDS SUMMARY | 2024-09-30 14:24 | XMS_ITS | Encounter Summary ---
Author Organization [employer] Address [address] [facility] 7t [place] [address] Care Team Providers Care Author'S Agent Name Role Phone [facility] Primary Care Provider [phone] Reason for Visit * Reason Onset Date Comments Verify T3 not in stock 11/15/2023 Encounter Details Date Type Department Care Team ([facility] st Contact Info) Description 11/15/2023 Telephone [facility] [address] [place], [place] [phone] [facility] [address] [place] [address] Verify T3 not in stock Social History Tobacco Use Types Packs/Day Years [...] AM EDT documented as of this encounter Miscellaneous Notes * Telephone Encounter - Katherin Frances RN - 11/15/2023 1:03 PM EDT TC to pharmacy, spoke with Regino, confirmed that T3 from 11/15/23 was not filled d/t insufficientstock. Requested RX be cancelled. * Telephone Encounter - Roya West - 11/15/2023 1:00 PM EDT Tc from pt requesting for acetaminophen-codeine (TYLENOL/CODEINE #3) 300-30 MG [facility] States [facility] is out of stock. documented in this encounter Plan of Treatment Upcoming Encounters Date Type Department Care Team (Late st Contact Info) Description 12/23/2024 11:30 AM EDT Clinical Support [facility] [address] [place] [address] Katherin Frances, RN documented as of this encounter Visit Diagnoses Diagnosis Multiple joint pain Pain in joint, multiple sites documented in this encounter Additional Health Concerns Assessment Noted Time PHQ-9 Depression Total Score: 0 07/03/19 24 9:44 AM EST documented as of this encounter Care Teams Author'S Agent Relationship Specialty Start Date End Date Xi Appiah FNP [address] [place] [address] PCP - General Family Medicine 02/22/22 documented as of this encounter
--- OUTSIDE RECORDS SUMMARY | 2024-09-30 14:24 | XMS_ITS | Encounter Summary ---
Author Organization [employer] Address [address] [place] [address] [place] [address] Care Team Providers Care Bench Precision Assembler Name Role Phone Xi Appiah Primary Care Provider [phone] Reason for Visit * Reason Comments Med Refill Encounter Details Date Type Department Care Team (Late st Contact Info) Description 11/08/[address] [facility] [address] [place] [phone] Raegan Chowdhury FNP [address] [place] [address] [place] [address] Multiple joint pain Social History Tobacco Use Types Packs/Day Years Used Date Smoking Tobacco: Every Day Cigarettes Smokeless Tobacco: Never Alcohol Use Standard Drinks/Week Comments Never 0 (1 standard drink = 0.6 oz pur e alcohol) PHQ-2 Answer Date Recorded Patient Health Questionnaire-2 Score 0 07/31/2022 Comments Unknown Sex and Gender Information Value Date Recorded Sex Assigned at Female 04/30/2022 10:14 AM EDT Legal Sex Female 10:14 AM EDT Gender Identity Female 04/30/2022 10:14 AM EDT Sexual Orientation Straight 04/30/2022 10 :14 AM EDT documented as of this encounter Miscellaneous Notes * Telephone Encounter - HAJA Rich - 11/08/2022 5:23 PM EDT Declining to refill until patient has scheduled SIMULATION EDUCATOR appointment documented in this encounter Plan of Treatment Upcoming Encounters Date Type Department Care Team (Late st Contact Info) Description 12/23/2024 11:30 AM EDT Clinical [address] [facility] 230 [place] [address] Katherin Frances, MARCELO documented as of this encounter Visit Diagnoses Diagnosis Multiple joint pain Pain in joint, multiple sites documented in this encounter Additional Health Concerns Assessment Noted Time PHQ-9 Depression Total Score: 0 07/31/19 23 3:56 PM EST documented as of this encounter Care Teams Bench Precision Assembler Relationship Specialty Start Date End Date Xi Appiah FNP 230 [place] [address] PCP - General Family Medicine 02/22/22 documented as of this encounter
--- OUTSIDE RECORDS SUMMARY | 2024-09-30 14:24 | XMS_ITS | Encounter Summary ---
Author Organization [employer] Address [address] [facility] 7t [place] [address] Care Team Providers Care Wood Milling Machine Hand Name Role Phone [facility] Primary Care Provider [phone] Reason for Visit * Reason Comments Med Refill Encounter Details Date Type Department Care Team ([facility] st Contact Info) Description 05/02/2024 Refill [facility] 230 [place] [address] [employer] 230 [place] [address] Multiple joint pain Social History Tobacco Use [...] Description 12/23/2024 11:30 AM EDT Clinical Support [facility] [address] [place] [address] Katherin Frances RN documented as of this encounter Visit Diagnoses Diagnosis Multiple joint pain Pain in joint, multiple sites documented in this encounter Additional Health Concerns Assessment Noted Time PHQ-9 Depression Total Score: 0 02/10/20 24 12:29 PM EDT documented as of this encounter Care Teams Wood Milling Machine Hand Relationship Specialty Start Date End Date Xi Appiah FNP 230 [place] [address] PCP - General Family Medicine 02/22/22 documented as of this encounter
--- OUTSIDE RECORDS SUMMARY | 2024-09-30 14:24 | XMS_ITS | Encounter Summary ---
Author Organization [employer] Address [address] [facility] 7t [place] [address] Care Team Providers Care Optometric Technologist Name Role Phone [facility] Primary Care Provider [phone] Reason for Visit * Reason Comments Med Refill Encounter Details Date Type Department Care Team ([facility] st Contact Info) Description 09/11/2024 Refill [facility] 230 [place] [address] [facility] 230 [place] [address] Dyspepsia Social History Tobacco Use Types Packs/Day Years Used Date Smoking Tobacco: Every Day Cigarettes Smokeless Tobacco: Never Alcohol Use Standard Drinks/Week Comments Never 0 (1 standard drink = 0.6 oz pur e alcohol) Depression Answer Date Recorded Patient Health Questionnaire-9 Score 2 05/13/2024 Patient Health Questionnaire-9 Score 2 05/13/2024 Last PHQ-9: Questionnaire Data Not on file 1 07/13/2023 Housing Stability Answer Date Recorded What is [...] Answer Date Recorded Patient Health Questionnaire-2 Score 2 05/13/2024 Internet Access Answer Date Recorded Internet Access [...] Description 12/23/2024 11:30 AM EDT Clinical Support [facility] [address] [place] [address] Katherin Frances RN documented as of this encounter Visit Diagnoses Diagnosis Dyspepsia Dyspepsia and other specified disorders of function of stomach documented in this encounter Additional Health Concerns Assessment Noted Time PHQ-9 Depression Total Score: 2 05/13/20 24 10:18 AM EST documented as of this encounter Care Teams Optometric Technologist Relationship Specialty Start Date End Date Xi Appiah FNP [address] [place] [address] PCP - General Family Medicine 02/22/22 documented as of this encounter
--- OUTSIDE RECORDS SUMMARY | 2024-09-30 14:24 | XMS_ITS | Encounter Summary ---
Author Organization [employer] Address [address] [facility] 7t [place] [address] Care Team Providers Care Tile Roofer Name Role Phone [facility] Primary Care Provider [phone] Reason for Visit * Reason Comments Med Refill Encounter Details Date Type Department Care Team ([facility] st Contact Info) Description 04/23/2024 Refill [facility] 230 [place] [address] [facility] 230 [place] [address] Multiple joint pain Social History Tobacco Use [...] Description 12/23/2024 11:30 AM EDT Clinical Support [facility] MED[facility] [address] [place] [address] Katherin Frances RN documented as of this encounter Visit Diagnoses Diagnosis Multiple joint pain Pain in joint, multiple sites documented in this encounter Additional Health Concerns Assessment Noted Time PHQ-9 Depression Total Score: 0 02/10/20 24 12:29 PM EDT documented as of this encounter Care Teams Tile Roofer Relationship Specialty Start Date End Date Xi Appiah FNP 230 [place] [address] PCP - General Family Medicine 02/22/22 documented as of this encounter
--- OUTSIDE RECORDS SUMMARY | 2024-09-30 14:24 | XMS_ITS | Encounter Summary ---
Author Organization [employer] Address [address] [facility] 7t [place] [address] Care Team Providers Care Graduate Fellow Name Role Phone [facility] Primary Care Provider [phone] Reason for Visit * Reason Comments Med Refill Encounter Details Date Type Department Care Team ([facility] st Contact Info) Description 11/15/2023 Refill [facility] [address] [place] [address] [facility] 230 [place] [address] Multiple joint pain Social History Tobacco Use [...] Description 12/23/2024 11:30 AM EDT Clinical Support [facility] MEDICINE [address] [place] [address] Katherin Frances RN documented as of this encounter Visit Diagnoses Diagnosis Multiple joint pain Pain in joint, multiple sites documented in this encounter Additional Health Concerns Assessment Noted Time PHQ-9 Depression Total Score: 0 07/03/19 24 9:44 AM EST documented as of this encounter Care Teams Graduate Fellow Relationship Specialty Start Date End Date Xi Appiah FNP [address] [place] [address] PCP - General Family Medicine 02/22/22 documented as of this encounter
--- OUTSIDE RECORDS SUMMARY | 2024-09-30 14:24 | XMS_ITS | Encounter Summary ---
Author Organization [employer] Address [address] [facility] [place] [address] Care Team Providers Care Supervisor Phosphatic Fertilizer Name Role Phone [facility] Primary Care Provider [phone] Encounter Details Date Type Department Care Team ([facility] st Contact Info) Description 12/13/2023 Orders Only [facility] [address] [place] [address] [place], [facility] [address] [place] [address] Hypothyroidism, unspecified Social History Tobacco Use Types Packs/Day Years [...] Description 12/23/2024 11:30 AM EDT Clinical Support [facility] [address] [place] [address] Katherin Frances RN documented as of this encounter Visit Diagnoses Diagnosis Hypothyroidism, unspecified documented in this encounter Additional Health Concerns Assessment Noted Time PHQ-9 Depression Total Score: 0 07/03/19 24 9:44 AM EST documented as of this encounter Care Teams Supervisor Phosphatic Fertilizer Relationship Specialty Start Date End Date Xi Appiah FNP [address] [place] [address] PCP - General Family Medicine 02/22/22 documented as of this encounter
--- OUTSIDE RECORDS SUMMARY | 2024-09-30 14:24 | XMS_ITS | Encounter Summary ---
Author Organization [employer] Address [address] [place] [address] Care Team Providers Care Mattress Inspector Name Role Phone Xi Appiah HOSPITAL RECEIVING CLERK Primary Care Provider [phone] Encounter Details Date Type Department Care Team (Late st Contact Info) Description 10/09/2023 Orders Only [facility] MED[facility]INE [address] [place] [address] ProviderFilipe MD Social History Tobacco Use Types Packs/Day Years [...] 11:30 AM EDT Clinical Support [facility] MEDICINE [address] [place] [address] Katherin Frances RN documented as of this encounter Procedures Procedure Name Priority Date/Time Associated Diagnosis Comments HM COLONOSCOPY Routine 09/23/2020 9:04 AM EDT documented in this encounter Results * Hm Colonoscopy (09/23/2020 9:04 AM EDT) us Historical Provider HEALTH MAINTENANCE Final Result documented in this encounter Visit Diagnoses Not on filedocumented in this encounter Additional Health Concerns Assessment Noted Time PHQ-9 Depression Total Score: 0 07/03/19 9:44 AM EST documented as of this encounter Care Teams Mattress Inspector Relationship Specialty Start Date End Date Xi Appiah FNP 230 [place] [address] PCP - General Family Medicine 02/22/22 documented as of this encounter
--- OUTSIDE RECORDS SUMMARY | 2024-09-30 14:24 | XMS_ITS | Encounter Summary ---
Author Organization [employer] Address [address] [facility] [address] [place] [address] Care Team Providers Care Shooter Helper Name Role Phone Xi Appiah SERVICE UNIT OPERATOR [employer] Primary Care Provider [phone] Encounter Details Date Type Department Care Team (Late st Contact Info) Description 09/30/2024 Orders Only GENERIC EXTERNAL DATA DEPARTMENT Provider, Generic External Data Social History Tobacco Use Types Packs/Day Years [...] 11:30 AM EDT Clinical Support [facility] [address] [place] [address] Katherin Frances RN documented as of this encounter Procedures Procedure Name Priority Date/Time Associated Diagnosis Comments BASIC METABOLIC PANEL Routine 09/30/2024 12:06 PM EDT URINE PROTEIN, TOTAL, RANDOM (W/O CREATININE) Routine 09/30/2024 12:02 PM EDT CREATININE, RANDOM URINE Routine 09/30/2024 12:02 PM EDT URINALYSIS, COMPLETE Routine 09/30/2024 12:02 PM EDT documented in this encounter Results * (ABNORMAL) Basic Metabolic Panel (09/30/2024 12:06 PM EDT) Sodium 140 135 - 145 mmol/L [facility] Potassium 4.4 3.3 - 5.1 mmol/L [facility] Chloride 104 96 - 108 mmol/L [facility] Carbon Dioxide 28 22 - 29 mmol/L [facility] Anion Gap 12 12 - 20 [facility] Urea Nitrogen (BUN) 20(H) 9 - 16 mg/dL [facility] Creatinine, Serum 0.68 0.5 - 1.4 mg/dL [facility] Estimated Glomerular Filt Rate >60 [facility] Comment:Chronic Kidney Disea se: Estimated GFR < 60 mL/min/[id number] Kidney Disease: Estimated GFR < 15 mL/min/1.73m2 Glucose 150(H) 60 - 115 mg/dL [facility] Calcium 9.6 8.4 - 10.2 mg/dL [facility] 09/30/2024 12:0 6 PM EDT 09/30/2024 12:06 PM EDT us Generic External Data Provider LAB BLOOD ORDERAB LES Final Result Performing Organization Address City/[facility] Co de Phone Number [facility] [address] [place] [phone] [phone] * Urine Protein, Total, Random without Creatinine (09/30/2024 12:02 PM EDT) Protein, Total, Random Urine 10 <12 mg/dL [facility] 09/30/2024 12:0 2 PM EDT 09/30/2024 12:39 PM EDT us Generic External Data Provider LAB URINE ORDERAB LES Final Result Performing Organization Address [facility] de Phone Number [facility] [address] [place] [phone] * Creatinine, Random Urine (09/30/2024 12:02 PM EDT) Creatinine, Urine 37.58 mg/dL [facility] 09/30/2024 12:0 2 PM EDT 09/30/2024 12:39 PM EDT Generic External Data Provider LAB URINE ORDERAB LES Final Result Performing Organization Address [facility] de Phone Number [facility] [address] [place] [phone] * (ABNORMAL) Urinalysis Complete (09/30/2024 12:02 PM EDT) Color Urine Yellow [facility] Appearance Urine Clear [facility] PH 6.0 5.0 - 9.0 [facility] Glucose Urine UA >=1000(A) Negative mg/dL [facility] Urine Blood Negative Negative [facility] Specific [place] - Urine 1.015 1.005 - 1.025 [facility] Urine Protein Negative Neg-Trace mg/dL [facility] Urine Ketones Negative Negative mg/dL [facility] Nitrite Urine Negative Negative [facility] Leukocyte Esterase Urine Negative Negative [facility] RBC Urine 0-2 0 - 2 /HPF [facility] Urine WBC 0-5 0 - 5 /HPF [facility] Urine Squamous Epithelial Cell 0-2 0 - 2 /HPF [facility] Urine Bacteria None Seen None Seen [facility] Hyaline Casts, Urine 0-2 0 - 2 /LPF [facility] 09/30/2024 12:0 2 PM EDT 09/30/2024 12:39 PM EDT us Generic External Data Provider LAB URINE ORDERAB LES Final Result [facility] [address] [place] [phone] documented in this encounter Visit Diagnoses Not on filedocumented in this encounter Additional Health Concerns Assessment Noted Time PHQ-9 Depression Total Score: 2 05/13/20 24 10:18 AM EST documented as of this encounter Care Teams Shooter Helper Relationship Specialty Start Date End Date Xi Appiah FNP [address] [place] [phone] PCP - General Family Medicine 02/22/22 documented as of this encounter
--- OUTSIDE RECORDS SUMMARY | 2024-09-30 14:24 | XMS_ITS | Clinical Summary ---
Author Organization [employer] Address [address] [place] [address] Care Team Providers Care Machine Iii Coremaker Name Role Phone Xi Appiah [facility] Primary Care Provider [phone] Allergies Active Allergy Reactions Criticality Noted Date Comments Duloxetine Rash Low 11/08/2023 Erythromycin Base Hives High 03/10/2024 Furosemide Rash Low 06/27/2010 Other reaction(s): rash Latex Rash Low 03/10/2024 Penicillins Hives High 03/10/2024 Sulfa Antibiotics 06/27/2010 Other reaction(s): rash Tolterodine Rash Low 06/27/2010 Other reaction(s): rash Wound Dressing Adhesive Rash Low 03/10/2024 Medications cholecalciferol (Vitamin D-3) 25 MCG (1000 UT) tablet Take 1 tablet by mouth 1 (one) time each day. Active ketotifen (Zaditor) 0.025 % ophthalmic solution Administer 1 drop into affected eye(s) every 12 (twelve) hours. 021 Active zoster vaccine-recombina nt adjuvanted (Shingrix) 50 MCG/0.5ML vaccine Inject 0.5 mL into the shoulder, thigh, or buttocks. 022 Active lidocaine (Lidoderm) 5 % patch Place 1 patch on the skin at bed time. 020 Active sennosides (Senna-Time) 8.6 MG tablet TAKE 2 TABLETS BY MOUTH EVERY DAY IF NEEDED FOR CONSTIPATION 180 tablet 1 023 Active rosuvastatin (Crestor) 20 MG tabletIndications :Mixed hyperlipidemia TAKE 1 TABLET BY MOUTH EVERY DAY 90 tablet 1 024 Active SITagliptin (Januvia) 100 MG tabletIndications :Type 2 diabetes mellitus with hyperglycemia, with long-term current use of insulin ([facility]) TAKE 1 TABLET BY MOUTH EVERY MORNING 90 tablet 3 Active gabapentin (Neurontin) 300 MG capsuleIndication s:Fibromyalgia Take 2 capsules by oral route three times daily. Take additional capsule with evening dose for a total of 900mg at bedtime 120 capsule 11 Active levothyroxine (Synthroid, Levoxyl) 125 MCG tabletIndications :Hypothyroidism, unspecified TAKE 1 TABLET BY MOUTH EVERY MORNING 90 tablet 1 024 Active lisinopril 5 MG tablet TAKE 1 TABLET BY MOUTH EVERY DAY 90 tablet 3 024 Active metFORMIN (Glucophage) 1000 MG tablet TAKE 1 TABLET BY MOUTH MORNING AND EVENING MEAL 180 tablet 024 Active cetirizine (ZyrTEC) 10 MG tablet Take 1 tablet (10 mg) by mouth Once per day. 30 tablet 024 2024 Active pantoprazole (ProtoNix) 40 MG EC tabletIndications :Dyspepsia TAKE 1 TABLET BY MOUTH EVERY DAY ON AN EMPTY STOMACH, REPLACES FAMOTIDINE FOR REFULX SYMPTOMS 90 tablet 1 024 Active famotidine (Pepcid) 40 MG tablet TOME 1 TABLETA POR VIA ORAL TODOS LOS RAJPUT AL ACOSTARSE 90 tablet 1 024 Active glucose blood test stripIndications: Type 2 diabetes mellitus with hyperglycemia, with long-term current use of insulin ([facility]) Check BS three times daily 100 each 12 024 2024 Active insulin pen needle (BD Pen Needle Piedad U/F) 32G x 4 mm miscIndications:T ype 2 diabetes mellitus with hyperglycemia, with long-term current use of insulin ([facility]) USE INSTRUCTED once daily with mealtime insulin 90 each Active cyanocobalamin (Vitamin B-12) 1000 MCG tabletIndications :Vitamin B12 deficiency Take 1 tablet (1,000 mcg) by mouth Once per day. TAKE 1 TABLET BY MOUTH EVERY MORNING 90 tablet 3 025 Active Skin Protectants, Misc. (eucerin) creamIndications: Type 2 diabetes mellitus with hyperglycemia, with long-term current use of insulin (CMS/HCC) Apply topically if needed for dry skin. 99 g 3 025 2025 Active simethicone (Mylicon,Gas-X) 125 MG capsuleIndication s:Bloating Take 1 capsule (125 mg) by mouth if needed in the morning, at noon, in the evening, and at bedtime for flatulence. 180 capsule Active Ventolin HFA 108 (90 Base) MCG/ACT inhaler INHALE 2 PUFFS EVERY 4 (FOUR) HOURS IF NEEDED FOR WHEEZING OR SHORTNESS OF BREATH. 18 g 1 025 Active aspirin (Aspirin Low Dose) 81 MG EC tabletIndications :Mixed hyperlipidemia TAKE 1 TABLET BY MOUTH EVERY DAY 90 tablet 3 025 Active insulin glargine (Toujeo Max SoloStar) 300 UNIT/ML injectionIndicati ons:Type 2 diabetes mellitus with hyperglycemia, with long-term current use of insulin (CMS/[facility]) INJECT 24 UNITS SUBCUTANEOUSLY AT BEDTIME 9 mL 5 Active insulin lispro (HumaLOG) 100 UNIT/ML injectionIndicati ons:Type 2 diabetes mellitus with hyperglycemia, with long-term current use of insulin (CMS/[facility]) Inject 6 Units under the skin before evening meal. 15 mL 1 025 Active Blood Glucose Monitoring Suppl (Onetocariouch Verio) w/Device kit Use to check BS as directed 1 kit Active glucose blood (Flat.toTouch Verio) test strip Use to check BS as directed 3x a day. 100 each 025 2025 Active OneTouch Delica Lancets 33G misc Use to check BS 3x daily as instructed 100 each Active hydrocortisone 1 % cream Apply topically if needed for irritation (to lispro injection site). 28 g 3 025 Active Fluticasone-Salme terol 250-50 MCG/ACT aerosol powderIndications :Moderate persistent asthma with acute exacerbation INHALE 1 PUFF POR VIA ORAL 2 TIMES DAILY 60 each 3 025 Active triamcinolone (Nasacort) 55 MCG/ACT nasal inhaler ADMINISTER 2 SPRAYS INTO EACH NOSTRIL ONCE PER DAY. 6.8 mL 025 2025 Active empagliflozin (Jardiance) 25 MGIndications:Typ e 2 diabetes mellitus with hyperglycemia, with long-term current use of insulin ([facility]) TAKE 1 TABLET BY MOUTH EVERY MORNING 90 tablet 025 Active empagliflozin (Jardiance) 25 MGIndications:Typ e 2 diabetes mellitus with hyperglycemia, with long-term current use of insulin ([facility]) TAKE 1 TABLET BY MOUTH EVERY MORNING 90 tablet 1 024 2024 Discontinued triamcinolone (Nasacort) 55 MCG/ACT nasal inhaler Administer 2 sprays into each nostril Once per day. 16.5 g 11 024 2024 Discontinued Fluticasone-Salme terol (Advair Diskus) 250-50 MCG/ACT aerosol powderIndications :Moderate persistent asthma with acute exacerbation Inhale 1 puff 2 times daily. 1 each 3 024 2024 Discontinued acetaminophen-cod eine (Tylenol w/ Codeine #3) 300-30 MG tabletIndications :Multiple joint pain TOME 1 TABLETA POR VIA ORAL CADA 12 H[address] PARA DOLOR MARIANO CUANDO SEA NECESARIO 56 tablet 025 2024 Active Problems Problem Noted Date Diagnosed Date Microalbuminuria due to type 2 diabetes mellitus ([facility]) 07/08/2023 Vitamin B12 deficiency 07/08/2023 Severe obstructive sleep apnea 07/06/2022 Overview (01/04/2023): ?? 2018 home sleep study with severe CARMEN ?? Compliant with CPAP Healthcare maintenance 07/06/2022 Overview (10/15/2023): Mammo: 08/2023-- bi-rads 1 Pap: Followed by [facility], need records C-scope: 2020, hyperplastic polyps, repeat due 2023-will refer back to GI BMD: Routine age 64 HCV Screen: Neg 2013 HIV Screen: Neg 2013 Post-menopausal 07/06/2022 Overview (07/06/2022): ?? Age 47 Type 2 diabetes mellitus, wi th long-term current use of insulin 07/06/2022 Overview (05/23/2024): Toujeo 22 units Lispro 4 units before dinner Metformin 1000mg b.id Jardiance 25mg Januvia 100mg daily Has CGM Previously unable to tolerate trulicity due to local skin reaction at injection site Foot Exam: 07/2023-Risk 0 Eye Exam: UTD Statin: Yes ASA: Yes ELIJAH/ARB: Yes Encouraged regular aerobic exercise for improved glycemic control Encouraged daily foot checks Encouraged lean protein snacks and to avoid foods high in sugar and simple carbohydrates Treatment Goals: A1c goal: <7% FBG goal: <130 2 hour post prandial goal: <180 Assessment & Plan (07/22/2023 9:06 PM EST): Lab Results Component Value Date HGBA1C 8.1 (A) 07/03/2023 HGBA1C 8.8 (A) 12/25/2022 HGBA1C 9.0 (A) 11/22/2022 Lab Results Component Value Date MICROALBUR 39.0 07/03/2023 CREATININE 0.70 07/03/2023 ?? BS improving overall ?? Continue current regimen; focus on dietary changes ?? Will refer for RN visit to review CGM data ?? Foot exam completed- Risk 0 Assessment & Plan (01/04/2023 12:43 PM EDT): Lab Results Component Value Date HGBA1C 8.8 (A) 12/25/2022 ?? Improving from last A1c >9% ?? INCREASE januvia to 100 ?? SWITCH from lantus to toujeo 27 units Assessment & Plan (12/03/2022 5:32 AM EDT): Lab Results Component Value Date HGBA1C 9.0 (A) 11/22/2022 ?? Worsening A1c ?? INCREASE lantus to 27 units ?? INCREASE januvia to 50mg daily Assessment & Plan (08/05/2022 12:17 PM EST): Lab Results Component Value Date HGBA1C 8.7 (A) 06/29/2022 ?? START januvia 25mg. Reviewed administration, risks, side effects ?? INCREASE snack size prior to bed to prevent overnight hypoglycemic episodes ?? Will refer to [facility] DM educator as patient will benefit from closer glucose monitoring ?? Routine labs ordered Assessment & Plan (07/06/2022 11:57 AM EST): -Improvement in A1c from 9% at last visit - Reviewed CGM log, morning FBG avg 130. Occasional hypoglycemic episodes over night. Patient advised to eat small snack with protein before bed. - Continue current medication regimen. Will reach out to pharmacy regarding options for other GLP-1 that may have different preservative given hx of local injection site reaction - Pt accepts referral to [facility] Nutrition program Maintenance: ?? BMP: Order at follow up ?? Microalbumin: Order at follow up ?? Foot Exam: Complete at follow up ?? Eye Exam: Discuss at follow up ?? Lipid panel: Order at follow up ?? ASCVD: Calculate pending updated labs ?? Statin: Yes ?? ASA: No ?? ELIJAH/ARB: No ? Encouraged regular aerobic exercise for improved glycemic control ?? Encouraged daily foot checks ?? Encouraged lean protein snacks and to avoid foods high in sugar and simple carbohydrates Mixed anxiety and depressive disorder 06/01/2022 Assessment & Plan (07/06/2022 11:51 AM EST): - Grief s/t loss of adopted son - Declines therapy referral at this time - Denies SI or thoughts of self harm - Contact [facility] if sx worsen or interested in grief counseling services Mixed hyperlipidemia 06/01/2022 Overview (07/06/2022): ?? Rosuvastatin 20mg ?? Aspirin 81mg daily Vitamin D deficiency 06/01/2022 Tobacco user 06/01/2022 Fibromyalgia 11/21/2017 Overview (02/12/2024): Extensive hx of widespread chronic pain-knee, back, neck Rheum labs negative- Unable to tolerate NSAIDs (GI s/e) tylenol w/ codeine #3, compliant with LEASE ADMINISTRATION ANALYST agreement Gabapentin 300mg t.i.d Amitryptiline 25mg --no improvement Duloxetine trial-discontinued due to allergic reaction Assessment & Plan (12/03/2022 5:37 AM EDT): ?? Pt will follow up with LEASE ADMINISTRATION ANALYST RN Autoimmune hypothyroidism 10/24/2012 Overview (02/12/2024): Stable on levothyroxine 125mcg Asthma 01/10/2012 Overview (07/06/2022): ?? Well controlled with albuterol and flovent Gastroesophageal reflux disease 01/10/2012 Overview (07/06/2022): ?? [place] [facility] ?? Pantoprazole ?? Remote hx of EGD at [facility]. No records on file Urge incontinence of urine 01/10/2012 Essential hypertension 12/17/2011 Overview (02/12/2024): Well controlled on lisinopril 5mg - Aerobic exercise to reduce BP. Initial goal of 30 min walk 3-5x/week. Increase as tolerated. - low-sodium diet (goal: <2g/day) and heart healthy diet such as DASH to reduce BP and prevent ASCVD. - Home BP monitoring 1-2 x day with goal of <140/90. - Seek immediate medical attention for chest pain, palpitations, SOB, syncope, or sudden changes in mental status. - Do not change or discontinue current prescriptions without first consulting health care provider Assessment & Plan (01/04/2023 12:41 PM EDT): ?? Well controlled continue current regimen Assessment & Plan (12/03/2022 5:28 AM EDT): ?? Well controlled ?? Continue current regimen Obesity 12/17/2011 Resolved Problems Problem Noted Date Diagnosed Date Resolved Date Lymphocytosis 06/01/2022 07/06/2022 Type 2 diabetes mellitus without complication 02/07/20 18 07/06/2022 Tear of meniscus of knee 07/08/201211/2022 Allergic rhinitis 01/10/2012 07/06/2022 Carpal tunnel syndrome 01/10/201207/06 Migraine 01/10/2012 07/06/2022 Pure hypercholesterolemia 12/17/2011 Encounters Date Type Department Care Team Description 09/30/2024 Orders Only GENERIC EXTERNAL DATA DEPARTMENT Provider, Generic External Data 09/30/2024 Refill [facility] [address], [place] [address] DykeXi, [facility] Hypothyroidism, unspecified; Dyspepsia; Multiple joint pain 09/23/2024 Telephone [facility] [address] [facility] [place] [address] DykeXi, [facility] 09/23/2024 Refill [facility] [address] [place] [address] Dyke Xi, [facility] Type 2 diabetes mellitus with hyperglycemia, with long-term current use of insulin (CMS/[facility]) 09/21/2024 Refill [facility] [address], [place] [address] Morenita Fortune DO 09/14/2024 Refill [facility] [address] [facility] [place] [address] Dyke Xi, [facility] Moderate persistent asthma with acute exacerbation 09/11/2024 Refill [facility] [address] [facility], [place] [address] Dyke Xi, [facility] Dyspepsia 08/23/2024 Refill [facility] [address] [facility], [place] [address] Dyke Xi, [facility] Multiple joint pain 08/20/2024 Refill [facility] [address] [facility], [place] [address] Dyke Xi, MEDICAL LABORATORY TECHNICIAN 08/16/2024 Refill [facility] [address] [facility], [place] [address] [facility] Mixed hyperlipidemia 08/14/2024 10:00 AM EST Office Visit [facility] [address] [facility], [place] [address] DykeXi, [facility] Type 2 diabetes mellitus with hyperglycemia, with long-term current use of insulin (CMS/HCC) (Primary Dx); Dyspepsia; Bloating; Dietary counseling; Exercise counseling; Class 1 obesity due to excess calories with serious comorbidity and body mass index (BMI) of 31.0 to 31.9 in adult 08/14/2024 Travel 08/03/2024 Patient Outreach [facility] [address] [place] [address] DykeXi [facility] Pre-visit Planning ((Unable to reach for PVP screening, LVM)) 07/24/2024 Refill [facility] [address] [place], [place] [phone] Charlotte Yi MD Multiple joint pain 07/23/2024 Refill [facility] [address] [place], [place] [phone] [facility] Vitamin B12 deficiency from Last 3 Months Immunizations Name Administration Dates Next Due Hep B, adult 03/05/2007,04/30/2006,12/19/2005 Influenza injectable quadriv alent IIV4 with preservative 03/28/2015 Influenza injectable quadriv alent preservative free 07/03/2023,03/28/2022,03/31/2021,07/04,04/03/2017 Influenza, IIV3, injectable 04/09/2014, 1 Influenza, Split (incl. madhav fied surface antigen) 06/02/2013,07/08/2012 Influenza, seasonal, injecta ble, preservative free 05/13/2024 Moderna Covid-19 Vaccine 12+ 09/19/2021,10/11/19 21,09/12/2020 Pfizer Covid-19 Vaccine 12+ 05/13/2024, 4 Pneumococcal Conjugate PCV 20 11/22/2022 Pneumococcal Polysaccharide PPSV23 05/14/2003 TD (adult), 2 Lf tetanus tox oid, preservative free, adsorbed 12/19/2005 Tdap 01/10/2020,06/02/2013 Zoster, Recombinant 04/27/2022,03/01/2021 Family History Medical History Relation Name Comments Hypertension Brother Diabetes Father Stroke Father Diabetes type II Mother Relation Name Status Comments Brother Father Mother Social History Tobacco Use Types Packs/Day Years Used Date Smoking Tobacco: Every Day Cigarettes Smokeless Tobacco: Never Tobacco Cessation:Ready to Q uit: Not Asked; Counseling Given: Not Answered Alcohol Use Standard Drinks/Week Comments Never 0 [...] Orientation Straight 04/30/2022 10 :14 AM EDT Last Filed Vital Signs Vital Sign Reading Time Taken Comments Blood Pressure 97/63 08/14/2024 9:58 AM EST Pulse 94 08/14/2024 9:58 AM EST Temperature 36.4 ??C (97.5 ??F) 08/14/2024 9:58 AM ES T Respiratory Rate 20 08/14/2024 9:58 AM EST Oxygen Saturation 99% 08/14/2024 9:58 AM EST Inhaled Oxygen Concentration - - Weight 77.6 kg (171 lb) 08/14/2024 9:58 AM EST Height 157.5 cm (5' 2 ) 08/14/2024 9:58 AM EST Body Mass Index 31.28 08/14/2024 9:58 AM EST Plan of Treatment Upcoming Encounters Date Type Department Care Team (Late st Contact Info) Description 12/23/2024 11:30 AM EDT Clinical Support [address] [phone] Katherin Frances, RN Health Maintenance Due Date Last Done Comments CT Colonography 1969 FIT DNA/Cologuard 1969 FIT 1969 FOBT 1969 Sigmoidoscopy 1969 Eye Exam 1979 Pap Smear 1990 Cervical Cancer Screening 1999 HPV/Cotest 1999 Colonoscopy 09/24/2023 09/23/2020 Colorectal Cancer Screening 09/24/2023 Lipid Panel 07/03/2024 07/03/2023, 04/01, 07/14/2021, Additional history exists Mammogram 08/27/2024 08/27/2023, 08/2021, 05/01/2022, Additional history exists Diabetes: Hemoglobin A1C 11/11/2024 025, 05/13/2024, 02/10/2024, Additional history exists SDOH Screening 02/09/2025 02/10/2024 Depression Screening 05/13/2025 05/13/2024, 05/13/20 24 Alcohol/Substance Use Screening 08/14/2025 08/14/2024 Diabetes: Foot Exam 08/14/2025 08/14/2024, 08/14/2024, 08/14/2024, Additional history exists Tobacco Screening 08/20/2025 08/20/2024 DTaP/Tdap/Td Vaccines (3 - Td or Tdap) 01/09/2030 01/10/2020, 06/02/2013, 12/19/2005 RSV Patients and Patients Aged 60 years or older (1 - 1-dose 75+ series) 2044 Hepatitis B Vaccines Completed 03/05/2007, 04/30/2006, 12/19/2005 Zoster Vaccines Completed 04/27/2022, 03/01/2021 Pneumococcal Vaccine: 50+ Years Completed 11/22/2022, 05/14/2003 COVID-19 Vaccine Completed 05/13/2024, 08/2023, 09/19/2021, Additional history exists Influenza Vaccine Completed 05/13/2024, , 03/28/2022, Additional history exists HIB Vaccines Aged Out No longer eligi ble based on patient's age to complete this topic HIV Screening Discontinued HPV Vaccines Aged Out No longer eligi ble based on patient's age to complete this topic Hepatitis A Vaccines Aged Out No long er eligible based on patient's age to complete this topic Hepatitis C Screening Discontinued IPV Vaccines Aged Out No longer eligi ble based on patient's age to complete this topic Meningococcal Vaccine Aged Out No radha valeriano eligible based on patient's age to complete this topic RSV under 20 months Aged Out No longe r eligible based on patient's age to complete this topic Rotavirus Vaccines Aged Out No longer eligible based on patient's age to complete this topic Procedures Procedure Name Priority Date/Time Associated Diagnosis Comments BASIC METABOLIC PANEL Routine 09/30/2024 12:06 PM EDT URINE PROTEIN, TOTAL, RANDOM (W/O CREATININE) Routine 09/30/2024 12:02 PM EDT CREATININE, RANDOM URINE Routine 09/30/2024 12:02 PM EDT URINALYSIS, COMPLETE Routine 09/30/2024 12:02 PM EDT POCT GLYCATED HEMOGLOBIN, TOTAL Routine 08/14/2024 10:00 AM EST Type 2 diabetes mellitus with hyperglycemia, with long-term current use of insulin ([facility]) POCT GLUCOSE Routine 08/14/2024 9:59 AM EST Type 2 diabetes mellitus with hyperglycemia, with long-term current use of insulin ([facility]) BI MAMMOGRAM SCREENING TOMOSYNTHESIS BILATERAL Routine 08/27/2023 2:30 PM EST LIPID PANEL, STANDARD Routine 07/03/2023 10:49 AM EST Type 2 diabetes mellitus with hyperglycemia, with long-term current use of insulin ([facility]) HM COLONOSCOPY Routine 09/23/2020 9:04 AM EDT from Last 3 Months or Most Recently Relevant to Health Maintenance Results * (ABNORMAL) Basic Metabolic Panel (09/30/2024 12:06 PM EDT) Sodium 140 135 - 145 mmol/L [facility] Potassium 4.4 3.3 - 5.1 mmol/L [facility] Chloride 104 96 - 108 mmol/L [facility] Carbon Dioxide 28 22 - 29 mmol/L [facility] Anion Gap 12 12 - 20 [facility] Urea Nitrogen (BUN) 20(H) 9 - 16 mg/dL [facility] Creatinine, Serum 0.68 0.5 - 1.4 mg/dL [facility] Estimated Glomerular Filt Rate >60 [facility] Comment:Chronic Kidney Disea se: Estimated GFR < 60 mL/min/1.91f1Vugqly Kidney Disease: Estimated GFR < 15 mL/min/1.73m2 Glucose 150(H) 60 - 115 mg/dL [facility] Calcium 9.6 8.4 - 10.2 mg/dL [facility] 09/30/2024 12:0 6 PM EDT 09/30/2024 12:06 PM EDT Generic External Data Provider LAB BLOOD ORDERAB LES Final Result [facility] [address] [place] [phone] * Urine Protein, Total, Random without Creatinine (09/30/2024 12:02 PM EDT) Protein, Total, Random Urine 10 <12 mg/dL [facility] 09/30/2024 12:0 2 PM EDT 09/30/2024 12:39 PM EDT Generic External Data Provider LAB URINE ORDERAB LES Final Result Performing Organization Address City/[facility]/ZIP Co de Phone Number [facility] [address] [place] [phone] * Creatinine, Random Urine (09/30/2024 12:02 PM EDT) Creatinine, Urine 37.58 mg/dL [facility] 09/30/2024 12:0 2 PM EDT 09/30/2024 12:39 PM EDT Generic External Data Provider LAB URINE ORDERAB LES Final Result Performing Organization Address [facility] Co de Phone Number [facility] [address] [place] [phone] * (ABNORMAL) Urinalysis Complete (09/30/2024 12:02 PM EDT) Color Urine Yellow [facility] Appearance Urine Clear [facility] PH 6.0 5.0 - 9.0 [facility] Glucose Urine UA >=1000(A) Negative mg/dL [facility] Urine Blood Negative Negative [facility] Specific [place] - Urine 1.015 1.005 - 1.025 [facility] Urine Protein Negative Neg-Trace mg/dL [facility] Urine Ketones Negative Negative mg/dL [facility] Nitrite Urine Negative Negative [facility] Leukocyte Esterase Urine Negative Negative [facility] RBC Urine 0-2 0 - 2 /HPF [facility] Urine WBC 0-5 0 - 5 /HPF [facility] Urine Squamous Epithelial Cell 0-2 0 - 2 /HPF [facility] Urine Bacteria None Seen None Seen [facility] Hyaline Casts, Urine 0-2 0 - 2 /LPF [facility] 09/30/2024 12:0 2 PM EDT 09/30/2024 12:39 PM EDT Generic External Data Provider LAB URINE ORDERAB LES Final Result [facility] [address] [place] [address] [phone] * (ABNORMAL) POCT HGB A1C (08/14/2024 10:00 AM EST) Hemoglobin A1C 7.3(A) 4.0 - 6.0 % QC Media Lot # [id number] Lot# Expiration Date ,026 Blood 08/14/2024 10:0 0 AM EST [facility] MEDICAL LABORATORY TECHNICIAN POINT OF CARE TEST ENTER/EDIT ORDERABLES Final Result * POCT Glucose (08/14/2024 9:59 AM EST) Glucose Blood, POC 156 60 - 200 mg/dL Comment:Random QC Media Lot # [id number] Lot# Expiration Date ,025 Blood Capillary blood specimen / Unknown 08/14/2024 9:59 AM EST [facility] MEDICAL LABORATORY TECHNICIAN POINT OF CARE TEST ENTER/EDIT ORDERABLES Final Result * BI Mammogram Screening Tomosynthesis Bilateral (08/27/2023 2:30 PM EST) Anatomical Region Laterality Modality Breast Bilateral Mammography 08/27/2023 2:30 PM EST Narrative 09/11/2023 5:27 PM EDT ? [facility] [place] ? [address] ?[place] [address] ? Mammography Report ? Signed ? Patient: Colon Colon,Bette J ?MR#: [id number] ?? [id number] ? : 1970 ?Acct:[id number] ? Age/Sex: 53 / F ?ADM Date: 02/27/24 ? Loc: HO.MAMMO ? Attending Dr: Xi Appiah MEDICAL LABORATORY TECHNICIAN ? Ordering Physician: Xi Appiah MEDICAL LABORATORY TECHNICIAN ?Results: 1Nega ?? tive ? Date of Service: 08/27/23 ?Follow Up: 1 Year From Orig ?? inal Mammogram ? Procedure(s): MM tomosynthesis screening BI ?? Accession Number(s): [id number] ? cc: Xi Appiah MEDICAL LABORATORY TECHNICIAN ? EXAMINATION: ?? MM SCREENING DIGITAL BREAST TOMOSYNTHESIS, BILATERAL ? CLINICAL INFORMATION: ? Screening. Asymptomatic. ? COMPARISON: ?? Mammography: This study is compared with prior exams dating back to ?? 2017. ? TECHNIQUE: ?? Digital breast tomosynthesis is performed in both the craniocaudal and ?? mediolateral oblique views along with computer-aided detection (CAD). ?? Synthesized 2D images are generated from the tomosynthesis. ? FINDINGS: ?? The breasts are almost entirely fatty (ACR BI-RADS breast composition ?? Category a). ? There are no significant masses, abnormal calcifications, or other ?? abnormalities. ? MM/MM tomosynthesis screening BI ?? IMPRESSION: ?? No mammographic evidence of malignancy. ? ASSESSMENT: ? BI-RADS BI-RADS 1 - Negative ? RECOMMENDATION: ?? Routine annual mammography screening. ? 1 year F/U ? This examination should not preclude the clinical evaluation of a ?? suspicious palpable abnormality. ? This patient's information was entered into a reminder system with a ?? target due date for their next mammogram. ? Dictated By: ?Sheila Robles MD ? Signed By: ?<Electronically signed by Sheila Robles MD in OV> ? 09/11/233 ? DD/ ? TD/TT: ? Financial Developer: ? Procedure Note Donprasanthter, Image - 09/11/2023 [facility] [address] [place] [address] Mammography Report Signed Patient: Bette Wright JMR#: [id number] : 1970Acct:[id number] Age/Sex: 53 / FADM Date: 08/27/23 Loc: HO.MAMMO Attending Dr: Xi Appiah MEDICAL LABORATORY TECHNICIAN Ordering Physician: Xi Appiah FNPResults: 1Nega tive Date of Service: 08/27/23Follow Up: 1 Year From Orig inal Mammogram Procedure(s): MM tomosynthesis screening BI Accession Number(s): [id number] cc: Xi Appiah EXAMINATION: MM SCREENING DIGITAL BREAST TOMOSYNTHESIS, BILATERAL CLINICAL INFORMATION: Screening. Asymptomatic. COMPARISON: Mammography: This study is compared with prior exams dating back to 2017. TECHNIQUE: Digital breast tomosynthesis is performed in both the craniocaudal and mediolateral oblique views along with computer-aided detection (CAD). Synthesized 2D images are generated from the tomosynthesis. FINDINGS: The breasts are almost entirely fatty (ACR BI-RADS breast composition Category a). There are no significant masses, abnormal calcifications, or other abnormalities. MM/MM tomosynthesis screening BI IMPRESSION: No mammographic evidence of malignancy. ASSESSMENT: BI-RADS BI-RADS 1 - Negative RECOMMENDATION: Routine annual mammography screening. 1 year F/U This examination should not preclude the clinical evaluation of a suspicious palpable abnormality. This patient's information was entered into a reminder system with a target due date for their next mammogram. Dictated By: Sheila Robles MD Signed By: <Electronically signed by Sheila Robles MD in OV> 09/11/23 1723 DD/ 1430 TD/TT: Financial Developer: Xi Appiah MEDICAL LABORATORY TECHNICIAN IMG BI PROCEDURES Final Resul t * (ABNORMAL) Lipid Panel, Standard (07/03/2023 10:49 AM EST) Triglycerides 208(H) <150 mg/dL [facility] Comment:Desirable Triglyceri de: less than 150 mg/dLBorderline High Triglyceride 150-199 mg/dLHigh Triglyceride: 200-499 mg/dLVery High Triglyceride: greater than or equal to 5OO mg/dL Cholesterol 135 <200 mg/dL [facility] Comment:Desirable Cholestero l: less than 200 mg/dLBorderline High Cholesterol: 200-239 mg/dLHigh Cholesterol: greater than 239 mg/dL LDL Cholesterol Calculated 52 <100 mg/dL [facility] Comment:Desirable LDL: less than 100 mg/dLNear Optimal/Above Optimal LDL: 110- 129 mg/dLBorderline High LDL: 130-159 mg/dLHigh LDL: 160-189 mg/dLVery High LDL: greater than or equal to 190 mg/dL HDL Cholesterol 42 >40 mg/dL [facility] Comment:Desirable HDL: great er than 40 mg/dL Note: This HDL assay may give artificially low results in patients with liver disease. Blood Venous blood specimen / Unknown 07/03/2023 10:49 AM EST 07/03/2023 11:49 AM EST [facility] MEDICAL LABORATORY TECHNICIAN LAB BLOOD ORDERABLES Final Re sult [facility] [address] [place] [address] [phone] * Colonoscopy (09/23/2020 9:04 AM EDT) Historical Provider HEALTH MAINTENANCE Final Result from Last 3 Months or Most Recently Relevant to Health Maintenance Insurance [facility] MED[employer]VANTAGE HMO Care Teams Machine Iii Coremaker Relationship Specialty Start Date End Date Xi Appiah FNP [address] [place] [id number] PCP - General Family Medicine 02/22/22
--- OUTSIDE RECORDS SUMMARY | 2024-09-30 14:24 | XMS_ITS | Encounter Summary ---
Author Organization [employer] Address [address] [place] [address] [address] [place] [address] Care Team Providers Care Manager Registration Name Role Phone [facility] Primary Care Provider [phone] Reason for Visit * Reason Comments Med Refill Encounter Details Date Type Department Care Team (Late Contact Info) Description 08/09/2022 Refill [facility] [address] [place], [place] [phone] [facility] [address] [place] [address] Social History Tobacco Use Types Packs/Day Years [...] Orientation Straight 04/30/2022 10 :14 AM EDT COVID-19 Exposure Response Date Recorded In the last 10 days, have yo u been in contact with someone who was confirmed or suspected to have Coronavirus/COVID-19? No / Unsure 07/31/2022 3:20 PM EST documented as of this encounter Plan of Treatment Upcoming Encounters Date Type Department Care Team (Late st Contact Info) Description 12/23/2024 11:30 AM EDT Clinical Support [facility] [address] [place] [address] Yvrose, Katherin, RN documented as of this encounter Visit Diagnoses Not on filedocumented in this encounter Additional Health Concerns Assessment Noted Time PHQ-9 Depression Total Score: 0 07/31/19 23 3:56 PM EST documented as of this encounter Care Teams Manager Registration Relationship Specialty Start Date End Date Xi Appiah FNP [address] [place] [address] PCP - General Family Medicine 02/22/22 documented as of this encounter
--- OUTSIDE RECORDS SUMMARY | 2024-09-30 14:24 | XMS_ITS | Encounter Summary ---
Author Organization [employer] Address [address] [facility] [address] [place] [address] Care Team Providers Care Copy Director Name Role Phone [facility] Primary Care Provider [phone] Reason for Visit * Reason Comments Med Refill Encounter Details Date Type Department Care Team ([facility] st Contact Info) Description 03/23/2024 Refill [facility] [address] [place] [address] [facility] [address] [place] [address] Dyspepsia Social History Tobacco Use Types Packs/Day [...] Description 12/23/2024 11:30 AM EDT Clinical Support [facility] [address] [place] [address] Katherin Frances RN documented as of this encounter Visit Diagnoses Diagnosis Dyspepsia Dyspepsia and other specified disorders of function of stomach documented in this encounter Additional Health Concerns Assessment Noted Time PHQ-9 Depression Total Score: 0 02/10/20 24 12:29 PM EDT documented as of this encounter Care Teams Copy Director Relationship Specialty Start Date End Date Xi Appiah FNP [address] [place] [address] PCP - General Family Medicine 02/22/22 documented as of this encounter
--- OUTSIDE RECORDS SUMMARY | 2024-09-30 14:24 | XMS_ITS | Encounter Summary ---
Author Organization [employer] Address [address] [facility] [address] [place] [address] Care Team Providers Care Electrical Appliance Preparer Name Role Phone [facility] Primary Care Provider [phone] Reason for Visit * Reason Onset Date Comments med refill 09/30/2024 Encounter Details Date Type Department Care Team (Late st Contact Info) Description 09/30/2024 Refill [facility] [address] [place] [address] [facility] [address] [place] [address] Hypothyroidism, unspecified; Dyspepsia; Multiple joint pain Social History Tobacco Use [...] as of this encounter Miscellaneous Notes * Addendum Note - Ermelinda Mixon RN - 09/30/2024 11:45 AM EDTAddended by: ERMELINDA MIXON on: 09/30/2024 11:45 AM Modules accepted: Orders * Telephone Encounter - Ermelinda Mixon RN - 09/30/2024 11:40 AM EDT [facility] reviewed for APAP-codeine, 28 day supply last picked up 08/24/24, rx due and pended. Otherwise famotidine, levothyroxine, pantoprazole due for refill and pended. Per [facility], aspirin has 8 refills remaining and cetirizine has 11 remaining refills, and Januvia picked up for 90 day supply 09/18/24 so not due for refill. * Telephone Encounter - Sonia Harris - 09/30/2024 11:20 AM EDT PT walked in stating that she needs the following refills Cetrizine 10 MG Famotidine (Pepcid) 40 MG Levothyroxine 125 MG Pantoprazole 40 MG Januvia 100 MG tablet Accetaminophen- Codeine 300-30 MG Tablet Aspirin Low dose 81 MG EC Tablet documented in this encounter Plan of Treatment Upcoming Encounters Date Type Department Care Team (Late st Contact Info) Description 12/23/2024 11:30 AM EDT Clinical Support [facility] [address] [place] [address] Katherin Frances RN documented as of this encounter Visit Diagnoses Diagnosis Hypothyroidism, unspecified Dyspepsia Dyspepsia and other specified disorders of function of stomach Multiple joint pain Pain in joint, multiple sites documented in this encounter Additional Health Concerns Assessment Noted Time PHQ-9 Depression Total Score: 2 05/13/20 24 10:18 AM EST documented as of this encounter Care Teams Electrical Appliance Preparer Relationship Specialty Start Date End Date Xi Appiah FNP [address] [place] [address] PCP - General Family Medicine 02/22/22 documented as of this encounter
--- OUTSIDE RECORDS SUMMARY | 2024-09-30 14:24 | XMS_ITS | Encounter Summary ---
Author Organization [employer] Address [address] [facility] [address] [place] [address] Care Team Providers Care Fish And Game Warden Name Role Phone [facility] Primary Care Provider [phone] Reason for Visit * Reason Comments Med Refill Encounter Details Date Type Department Care Team ([facility] st Contact Info) Description 06/06/[address] [facility] [address] [place], [place] [phone] [facility] [address] [place] [address] Hypothyroidism, unspecified Social History Tobacco Use Types [...] Description 12/23/2024 11:30 AM EDT Clinical Support [facility] [address] [place] [address] Katherin Frances RN documented as of this encounter Visit Diagnoses Diagnosis Hypothyroidism, unspecified documented in this encounter Additional Health Concerns Assessment Noted Time PHQ-9 Depression Total Score: 2 05/13/20 24 10:18 AM EST documented as of this encounter Care Teams Fish And Game Warden Relationship Specialty Start Date End Date Xi Appiah FNP [address] [place] [address] PCP - General Family Medicine 02/22/22 documented as of this encounter
== END 2024-09-30 11:49 | disposition home or self-care (01) ==
LOC: HO.LAB 11:48
PROVIDERS: PCP Registered Nurse; Visit Provider Internal Medicine Hypertension Specialist
DX: R80.9 Proteinuria, unspecified (principal); N05.9 Unspecified nephritic syndrome with unspecified morphologic changes
CPT/HCPCS: 36415; 80048; 81001; 82570; 84156